=== PATIENT | male | born 1960 | race Caucasian/White ===

== ENCOUNTER 2022-02-20 04:07 | Emergency (ER) | payer BC ==
--- OUTSIDE RECORDS SUMMARY | 2022-02-20 04:12 | XMS REPORT | Continuity of Care Document ---
:1960 Author Organization [facility] t Address [address] [place] [address] Care Team Providers Name Role Phone PREMA LINARES Primary Care Physician Unavailable CHRLULEN_Vishal Attending Clinician Unavailable DANIAL BUNN Attending Clinician Unavailable Danial Bunn MD Attending Clinician 2, [facility] Attending Clinician Unavailable Reese Stewart MD Attending Clinician REESE STEWART Attending Clinician Unavailable Doctor Unassigned, [address] Attending Clinician Unavailable Lorena Casas Attending Clinician [phone] CATAL[place] Attending Clinician Unavailable Prema Linares Attending Clinician [phone] Alfonzo Attending Clinician Unavailable FAUSTO HILLMAN Attending Clinician Unavailable Fausto Bear Attending Clinician CHRETIEN_F Admitting Clinician Unavailable DANIAL BUNN Admitting Clinician Unavailable CATALINO Admitting Clinician Unavailable Alfonzo Admitting Clinician Unavailable Payers Payer Name Policy Type Policy Number Effective Date Expiration Date April mehta [place] [id number] 2020 00:00:00 BCBS [facility] [id number] 2019 00:00:00 [facility] [id number] [place] Problems Condition Condition Condition Status Onset Resolution Last Treating Co mments Source Name Details Category Date Date Treatment Clinician Date Respirator Respirator Problem Active [facility] [facility] tract y Tract 8-10 [facility] congestion Congestion 00:00: ty and cough and Cough 00 [facility] Clinics Acute Acute Problem Active [place] sinusitis Sinusitis 10-07 Comm uni 00:00: ty 00 [facility] Allergic Allergic Problem Active [place] rhinitis Rhinitis 10-07 [facility] i 00:00: ty 00 [facility] COVID-19 Covid-19 Problem Active [place] 10-07 [facility] 00:[facility]: ty 00 [facility] Atypical Atypical Problem Active 2020-03 [place] chest pain Chest Pain - [facility] 00:00: ty 00 [facility] Family Family Problem Active 2020-03 [place] history of History of 03-23 [facility] Cardiovasc Cardiovasc 00:00: ty danielleyaneth li 00 [facility] disease Disease l Clinics Peripheral Peripheral Problem Active [place] vascular Vascular 08-28 [facility] disease Disease 00:00: ty 00 Hospita [facility] Clinics Bilateral Bilateral Problem Active [place] lower leg Lower Leg 08-28 Comm uni edema Edema 00:00: ty 00 [facility]ospita l Clinics Hypothyroi Hypothyroi Problem Active 2019-03 [place] dism dism 04-02 [facility] 00:00: ty 00 [facility]ospita l Clinics Asthma Asthma Problem Active [place] 09-07 [facility]i 00:00: ty 00 [facility] Chronic Chronic Problem Active [place] hepatitis Hepatitis 09-07 Comm uni 00:00: ty 00 Hospita Clinics Allergies, Adverse Reactions, Alerts Allergy Allergy Status Severity Reaction(s) Onset Inactive Treating Comm ents Source Name Type Date Date Clinician NO KNOWN Drug [facility] Social History Social Habit Start Date Stop Date Quantity Comments Source Exposure to 2021-10-28 2021-11-07 Not sure [facility] SARS-CoV-2 (event) 00:00:00 10:11:00 Medica l Branch Sex Ass[birth year] At [birth year] [facility] 00:00:00 00:00:00 Medical Branch Smoking Status Start Date Stop Date Source Never Smoker [facility] Tobacco smoking consumption [facility] Medical unknown Branch Medications Ordered Filled Start Stop Current Ordering Indication Dosage Frequency Signature Comments Components Source Medication Medication Date Date Medication? Clinician (SIG) Name Name Kenyatta You 40 No Kenyatta 40 [place] mg/mL mg/mL 8-10 mg/mL [facility] suspension suspension 15:39: suspension ty for for 30 for Hospita injectionTa injectionTa injectionT l ke 60 mg by ke 60 mg by jaxon 60 mg Clinics injection injection by route as route as injection directed directed route as for 1 day. for 1 day. directed for 1 day. Kenyatta 40 Kenyatta 40 No Kenyatta 40 [place] mg/mL mg/mL 8-10 mg/mL [facility]i suspension suspension 15:39: suspension ty for for 30 for Hospita injectionTa injectionTa injectionT l ke 60 mg by ke 60 mg by jaxon 60 mg Clinics injection injection by route as route as injection directed directed route as for 1 day. for 1 day. directed for 1 day. levothyroxi levothyroxi No levothyrox [place] 25 mcg ne 25 mcg ine 25 mcg da tablet TAKE tablet TAKE tablet Medical 1 TABLET BY 1 TABLET BY TAKE 1 Group MOUTH ONCE MOUTH ONCE TABLET BY DAILY DAILY MOUTH ONCE DIRECTED DIRECTED DAILY DIRECTED acyclovir acyclovir No acyclovir [place] 800 mg 800 mg 800 mg Communi tablet TAKE tablet TAKE tablet ty 1 TABLET BY 1 TABLET BY TAKE 1 Hospita MOUTH FIVE MOUTH FIVE TABLET BY l TIMES DAILY TIMES DAILY MOUTH FIVE Clinics DIRECTED DIRECTED TIMES FOR 10 DAYS FOR 10 DAYS DAILY DIRECTED FOR 10 DAYS albuterol albuterol No 2puff(s Q5H albuterol [place] sulfate HFA sulfate HFA ) sulfate Communi 90 90 HFA 90 ty mcg/actuati mcg/actuati mcg/actuat Hospita on aerosol on aerosol ion l inhaler inhaler aerosol Clinic s Inhale 2 Inhale 2 inhaler puffs every puffs every Inhale 2 4-6 hours 4-6 hours puffs by by every 4-6 inhalation inhalation hours by route as route as inhalation needed for needed for route as 30 days. 30 days. needed for 30 days. methylpredn methylpredn No methylpred [place] isolone 4 isolone 4 nisolone 4 Communi mg tablets mg tablets mg tablets ty in a dose in a dose in a dose Hospita pack TAKE pack TAKE pack TAKE l BY MOUTH BY MOUTH BY MOUTH Clinics DIRECTED ON DIRECTED ON INSIDE OF INSIDE OF DIRECTED PACKAGE PACKAGE ON INSIDE OF PACKAGE promethazin promethazin No 5mL Q6H promethazi [place] e-DM 6.25 e-DM 6.25 ne-DM 6.25 Communi mg-15 mg/5 mg-15 mg/5 mg-15 mg/5 ty mL oral mL oral mL oral Hospit a syrup Take syrup Take syrup Take l 5 mL every 5 mL every 5 mL every Clinics 6 hours by 6 hours by 6 hours by oral route oral route oral route as needed as needed as needed for 7 days. for 7 days. for 7 days. Symbicort Symbicort No Symbicort [place] 160 mcg-4.5 160 mcg-4.5 160 [facility] mcg/actuati mcg/actuati mcg-4.5 ty on HFA on HFA mcg/actuat Hospi ta aerosol aerosol ion HFA l inhaler inhaler aerosol Clinic s INHALE 2 INHALE 2 inhaler PUFFS BY PUFFS BY INHALE 2 MOUTH TWICE MOUTH TWICE PUFFS BY DAILY DAILY MOUTH DIRECTED DIRECTED TWICE DAILY DIRECTED albuterol albuterol No albuterol [place] sulfate 2.5 sulfate 2.5 sulfate Communi mg/3 mL mg/3 mL 2.5 mg/3 ty (0.083 %) (0.083 %) mL (0.083 Hospita solution solution %) l for for solution Clinics nebulizatio nebulizatio for n Inhale 3 n Inhale 3 nebulizati mL 3 times mL 3 times on Inhale a day by a day by 3 mL 3 nebulizatio nebulizatio times a n route as n route as day by directed directed nebulizati for 30 for 30 on route days. days. as directed for 30 days. albuterol albuterol No 2puff(s Q5H albuterol [place] sulfate HFA sulfate HFA ) sulfate Communi 90 90 HFA 90 ty mcg/actuati mcg/actuati mcg/actuat Hospita on aerosol on aerosol ion l inhaler inhaler aerosol Clinic s Inhale 2 Inhale 2 inhaler puffs every puffs every Inhale 2 4-6 hours 4-6 hours puffs by by every 4-6 inhalation inhalation hours by route as route as inhalation needed for needed for route as 30 days. 30 days. needed for 30 days. doxycycline doxycycline No doxycyclin [place] hyclate 100 hyclate 100 e hyclate Communi mg capsule mg capsule 100 mg t y Day 1: Take Day 1: Take capsule Hospita 2 - 100mg 2 - 100mg Day 1: l doxycycline doxycycline Take 2 - Clinics hyclate hyclate 100mg capsules by capsules by doxycyclin mouth.Day mouth.Day e hyclate 2, 3, 4, 5: 2, 3, 4, 5: capsules Take 1 - Take 1 - by 100mg 100mg mouth.Day doxycycline doxycycline 2, 3, 4, hyclate hyclate 5: Take 1 capsule capsule - 100mg daily, by daily, by doxycyclin mouth. mouth. e hyclate capsule daily, by mouth. methylpredn methylpredn No methylpred [place] isolone 4 isolone 4 nisolone 4 Communi mg tablets mg tablets mg tablets ty in a dose in a dose in a dose Hospita pack TAKE pack TAKE pack TAKE l BY MOUTH BY MOUTH BY MOUTH Clinics DIRECTED ON DIRECTED ON INSIDE OF INSIDE OF DIRECTED PACKAGE PACKAGE ON INSIDE OF PACKAGE promethazin promethazin No promethazi [place] e-DM 6.25 e-DM 6.25 ne-DM 6.25 Communi mg-15 mg/5 mg-15 mg/5 mg-15 mg/5 ty mL oral mL oral mL oral Hospit a syrup TAKE syrup TAKE syrup TAKE l 5 ML BY 5 ML BY 5 ML BY Clinic s MOUTH EVERY MOUTH EVERY MOUTH 6 HOURS 6 HOURS EVERY 6 NEEDED FOR NEEDED FOR HOURS 7 DAYS 7 DAYS NEEDED FOR 7 DAYS Symbicort Symbicort No Symbicort [place] 160 mcg-4.5 160 mcg-4.5 160 [facility] mcg/actuati mcg/actuati mcg-4.5 ty on HFA on HFA mcg/actuat Hospi ta aerosol aerosol ion HFA l inhaler inhaler aerosol Clinic s INHALE 2 INHALE 2 inhaler PUFFS BY PUFFS BY INHALE 2 MOUTH TWICE MOUTH TWICE PUFFS BY DAILY DAILY MOUTH DIRECTED DIRECTED TWICE DAILY DIRECTED albuterol albuterol No albuterol [place] sulfate 2.5 sulfate 2.5 sulfate Communi mg/3 mL mg/3 mL 2.5 mg/3 ty (0.083 %) (0.083 %) mL (0.083 Hospita solution solution %) l for for solution Clinics nebulizatio nebulizatio for n Inhale 3 n Inhale 3 nebulizati mL 3 times mL 3 times on Inhale a day by a day by 3 mL 3 nebulizatio nebulizatio times a n route as n route as day by directed directed nebulizati for 30 for 30 on route days. days. as directed for 30 days. albuterol albuterol No 2puff(s Q5H albuterol [place] sulfate HFA sulfate HFA ) sulfate Communi 90 90 HFA 90 ty mcg/actuati mcg/actuati mcg/actuat Hospita on aerosol on aerosol ion l inhaler inhaler aerosol Clinic s Inhale 2 Inhale 2 inhaler puffs every puffs every Inhale 2 4-6 hours 4-6 hours puffs by by every 4-6 inhalation inhalation hours by route as route as inhalation needed for needed for route as 30 days. 30 days. needed for 30 days. Symbicort Symbicort No Symbicort [place] 160 mcg-4.5 160 mcg-4.5 160 [facility] mcg/actuati mcg/actuati mcg-4.5 ty on HFA on HFA mcg/actuat Hospi ta aerosol aerosol ion HFA l inhaler inhaler aerosol Clinic s INHALE 2 INHALE 2 inhaler PUFFS BY PUFFS BY INHALE 2 MOUTH TWICE MOUTH TWICE PUFFS BY DAILY DAILY MOUTH DIRECTED DIRECTED TWICE DAILY DIRECTED albuterol albuterol No albuterol [place] sulfate 2.5 sulfate 2.5 sulfate Communi mg/3 mL mg/3 mL 2.5 mg/3 ty (0.083 %) (0.083 %) mL (0.083 Hospita solution solution %) l for for solution Clinics nebulizatio nebulizatio for n Inhale 3 n Inhale 3 nebulizati mL 3 times mL 3 times on Inhale a day by a day by 3 mL 3 nebulizatio nebulizatio times a n route as n route as day by directed directed nebulizati for 30 for 30 on route days. days. as directed for 30 days. albuterol albuterol No albuterol [place] sulfate HFA sulfate HFA sulfate Communi 90 90 HFA 90 ty mcg/actuati mcg/actuati mcg/actuat Hospita on aerosol on aerosol ion l inhaler inhaler aerosol Clinic s INHALE 2 INHALE 2 inhaler PUFFS BY PUFFS BY INHALE 2 MOUTH EVERY MOUTH EVERY PUFFS BY 4 TO 6 4 TO 6 MOUTH HOURS HOURS EVERY 4 TO NEEDED NEEDED 6 HOURS NEEDED levothyroxi levothyroxi No 1 levothyrox [place] ne 25 mcg ne 25 mcg ine 25 mcg Communi tablet Take tablet Take tablet ty 1 tablet by 1 tablet by Take 1 [facility] oral route oral route tablet by l as directed as directed oral route Clinics for for 90 as days. days. directed for 90 days. Symbicort Symbicort No Symbicort [place] 160 mcg-4.5 160 mcg-4.5 160 [facility] mcg/actuati mcg/actuati mcg-4.5 ty on HFA on HFA mcg/actuat Hospi ta aerosol aerosol ion HFA l inhaler inhaler aerosol Clinic s INHALE 2 INHALE 2 inhaler PUFFS BY PUFFS BY INHALE 2 MOUTH TWICE MOUTH TWICE PUFFS BY DAILY DAILY MOUTH DIRECTED DIRECTED TWICE DAILY DIRECTED albuterol albuterol No albuterol [place] sulfate HFA sulfate HFA sulfate Communi 90 90 HFA 90 ty mcg/actuati mcg/actuati mcg/actuat Hospita on aerosol on aerosol ion l inhaler inhaler aerosol Clinic s INHALE 2 INHALE 2 inhaler PUFFS BY PUFFS BY INHALE 2 MOUTH EVERY MOUTH EVERY PUFFS BY 4 TO 6 4 TO 6 MOUTH HOURS HOURS EVERY 4 TO NEEDED NEEDED 6 HOURS NEEDED dicyclomine dicyclomine No 1 QID dicyclomin [place] 20 mg 20 mg e 20 mg Communi tablet Take tablet Take tablet ty 1 tablet 4 1 tablet 4 Take 1 H ospita times a day times a day tablet 4 l by oral by oral times a Clinic s route as route as day by directed directed oral route for 14 for 14 as days. days. directed for 14 days. levothyroxi levothyroxi No 1 levothyrox [place] ne 25 mcg ne 25 mcg ine 25 mcg Communi tablet Take tablet Take tablet ty 1 tablet by 1 tablet by Take 1 [facility] oral route oral route tablet by l as directed as directed oral route Clinics for 90 for 90 as days. days. directed for 90 days. metronidazo metronidazo No 1 TID metronidaz [place] le 250 mg le 250 mg ole 250 mg Communi tablet Take tablet Take tablet ty 1 tablet 3 1 tablet 3 Take 1 H ospita times a day times a day tablet 3 l by oral by oral times a Clinic s route as route as day by directed directed oral route for 7 days. for 7 days. as directed for 7 days. albuterol albuterol No albuterol [place] sulfate HFA sulfate HFA sulfate Communi 90 90 HFA 90 ty mcg/actuati mcg/actuati mcg/actuat Hospita on aerosol on aerosol ion l inhaler inhaler aerosol Clinic s INHALE 2 INHALE 2 inhaler PUFFS BY PUFFS BY INHALE 2 MOUTH EVERY MOUTH EVERY PUFFS BY 4 TO 6 4 TO 6 MOUTH HOURS HOURS EVERY 4 TO NEEDED NEEDED 6 HOURS NEEDED levothyroxi levothyroxi No levothyrox [place] ne 25 mcg ne 25 mcg ine 25 mcg Communi tablet Take tablet Take tablet ty 1 tablet by 1 tablet by Take 1 Hospita oral route oral route tablet by l as directed as directed oral route Clinics for 90 for 90 as days. days. directed for 90 days. albuterol albuterol No albuterol [place] sulfate HFA sulfate HFA sulfate Communi 90 90 HFA 90 ty mcg/actuati mcg/actuati mcg/actuat Hospita on aerosol on aerosol ion l inhaler inhaler aerosol Clinic s INHALE 2 INHALE 2 inhaler PUFFS BY PUFFS BY INHALE 2 MOUTH EVERY MOUTH EVERY PUFFS BY 4 TO 6 4 TO 6 MOUTH HOURS HOURS EVERY 4 TO NEEDED NEEDED 6 HOURS NEEDED doxycycline doxycycline No doxycyclin [place] hyclate 100 hyclate 100 e hyclate Communi mg capsule mg capsule 100 mg t y Day 1: Take Day 1: Take capsule Hospita 2 - 100mg 2 - 100mg Day 1: l doxycycline doxycycline Take 2 - Clinics hyclate hyclate 100mg capsules by capsules by doxycyclin mouth.Day mouth.Day e hyclate 2, 3, 4, 5: 2, 3, 4, 5: capsules Take 1 - Take 1 - by 100mg 100mg mouth.Day doxycycline doxycycline 2, 3, 4, hyclate hyclate 5: Take 1 capsule capsule - 100mg daily, by daily, by doxycyclin mouth. mouth. e hyclate capsule daily, by mouth. hydrocodone hydrocodone No hydrocodon [place] 5 5 e 5 Communi mg-acetamin mg-acetamin mg-acetami ty ophen 325 ophen 325 nophen 325 Hospita mg tablet mg tablet mg tablet l TAKE 1 TAKE 1 TAKE 1 Clinics TABLET BY TABLET BY TABLET BY MOUTH EVERY MOUTH EVERY MOUTH 4 TO 6 4 TO 6 EVERY 4 TO HOURS HOURS 6 HOURS NEEDED FOR NEEDED FOR NEEDED FOR PAIN PAIN PAIN levothyroxi levothyroxi No levothyrox [place] ne 25 mcg ne 25 mcg ine 25 mcg Communi tablet Take tablet Take tablet ty 1 tablet by 1 tablet by Take 1 Hospita oral route oral route tablet by l as directed as directed oral route Clinics for 90 for 90 as days. days. directed for 90 days. Symbicort Symbicort No Symbicort [place] 160 mcg-4.5 160 mcg-4.5 160 [facility] mcg/actuati mcg/actuati mcg-4.5 ty on HFA on HFA mcg/actuat Hospi ta aerosol aerosol ion HFA l inhaler inhaler aerosol Clinic s INHALE 2 INHALE 2 inhaler PUFFS BY PUFFS BY INHALE 2 MOUTH TWICE MOUTH TWICE PUFFS BY DAILY DAILY MOUTH DIRECTED DIRECTED TWICE DAILY DIRECTED albuterol albuterol No albuterol [place] sulfate HFA sulfate HFA sulfate Communi 90 90 HFA 90 ty mcg/actuati mcg/actuati mcg/actuat Hospita on aerosol on aerosol ion l inhaler inhaler aerosol Clinic s INHALE 2 INHALE 2 inhaler PUFFS BY PUFFS BY INHALE 2 MOUTH EVERY MOUTH EVERY PUFFS BY 4 TO 6 4 TO 6 MOUTH HOURS HOURS EVERY 4 TO NEEDED NEEDED 6 HOURS NEEDED doxycycline doxycycline No doxycyclin [place] hyclate 100 hyclate 100 e hyclate Communi mg capsule mg capsule 100 mg t y Day 1: Take Day 1: Take capsule Hospita 2 - 100mg 2 - 100mg Day 1: l doxycycline doxycycline Take 2 - Clinics hyclate hyclate 100mg capsules by capsules by doxycyclin mouth.Day mouth.Day e hyclate 2, 3, 4, 5: 2, 3, 4, 5: capsules Take 1 - Take 1 - by 100mg 100mg mouth.Day doxycycline doxycycline 2, 3, 4, hyclate hyclate 5: Take 1 capsule capsule - 100mg daily, by daily, by doxycyclin mouth. mouth. e hyclate capsule daily, by mouth. hydrocodone hydrocodone No hydrocodon [place] 5 5 e 5 Communi mg-acetamin mg-acetamin mg-acetami ty ophen 325 ophen 325 nophen 325 Hospita mg tablet mg tablet mg tablet l TAKE 1 TAKE 1 TAKE 1 Clinics TABLET BY TABLET BY TABLET BY MOUTH EVERY MOUTH EVERY MOUTH 4 TO 6 4 TO 6 EVERY 4 TO HOURS HOURS 6 HOURS NEEDED FOR NEEDED FOR NEEDED FOR PAIN PAIN PAIN levothyroxi levothyroxi No levothyrox [place] ne 25 mcg ne 25 mcg ine 25 mcg Communi tablet Take tablet Take tablet ty 1 tablet by 1 tablet by Take 1 Hospita oral route oral route tablet by l as directed as directed oral route Clinics for 90 for 90 as days. days. directed for 90 days. Symbicort Symbicort No Symbicort [place] 160 mcg-4.5 160 mcg-4.5 160 [facility] mcg/actuati mcg/actuati mcg-4.5 ty on HFA on HFA mcg/actuat Hospi ta aerosol aerosol ion HFA l inhaler inhaler aerosol Clinic s INHALE 2 INHALE 2 inhaler PUFFS BY PUFFS BY INHALE 2 MOUTH TWICE MOUTH TWICE PUFFS BY DAILY DAILY MOUTH DIRECTED DIRECTED TWICE DAILY DIRECTED albuterol albuterol No albuterol [place] sulfate HFA sulfate HFA sulfate Communi 90 90 HFA 90 ty mcg/actuati mcg/actuati mcg/actuat Hospita on aerosol on aerosol ion l inhaler inhaler aerosol Clinic s INHALE 2 INHALE 2 inhaler PUFFS BY PUFFS BY INHALE 2 MOUTH EVERY MOUTH EVERY PUFFS BY 4 TO 6 4 TO 6 MOUTH HOURS HOURS EVERY 4 TO NEEDED NEEDED 6 HOURS NEEDED Kenalog 40 Kenalog 40 No 60mg Kenalog 40 [place] mg/mL mg/mL mg/mL [facility] suspension suspension suspension ty for for for Hospita injection injection injection l Take 60 mg Take 60 mg Take 60 mg Clinics by by by injection injection injection route as route as route as directed directed directed for 1 day. for 1 day. for 1 day. levofloxaci levofloxaci No 1 Q24H levofloxac [place] n 500 mg n 500 mg in 500 mg [facility] tablet Take tablet Take tablet ty 1 tablet 1 tablet Take 1 Hospi ta every 24 every 24 tablet l hours by hours by every 24 Cli nics oral route. oral route. hours by oral route. levothyroxi levothyroxi No levothyrox [place] ne 25 mcg ne 25 mcg ine 25 mcg Communi tablet Take tablet Take tablet ty 1 tablet by 1 tablet by Take 1 Hospita oral route oral route tablet by l as directed as directed oral route Clinics for 90 for 90 as days. days. directed for 90 days. Symbicort Symbicort No Symbicort [place] 160 mcg-4.5 160 mcg-4.5 160 [facility] mcg/actuati mcg/actuati mcg-4.5 ty on HFA on HFA mcg/actuat Hospi ta aerosol aerosol ion HFA l inhaler inhaler aerosol Clinic s INHALE 2 INHALE 2 inhaler PUFFS BY PUFFS BY INHALE 2 MOUTH TWICE MOUTH TWICE PUFFS BY DAILY DAILY MOUTH DIRECTED DIRECTED TWICE DAILY DIRECTED albuterol albuterol No albuterol [place] sulfate HFA sulfate HFA sulfate Communi 90 90 HFA 90 ty mcg/actuati mcg/actuati mcg/actuat Hospita on aerosol on aerosol ion l inhaler inhaler aerosol Clinic s INHALE 2 INHALE 2 inhaler PUFFS BY PUFFS BY INHALE 2 MOUTH EVERY MOUTH EVERY PUFFS BY 4 TO 6 4 TO 6 MOUTH HOURS HOURS EVERY 4 TO NEEDED NEEDED 6 HOURS NEEDED Kenalog 40 Ken[place]og 40 No 60mg Kenalog 40 [place] mg/mL mg/mL mg/mL [facility] suspension suspension suspension ty for for for Hospita injection injection injection l Take 60 mg Take 60 mg Take 60 mg Clinics by by by injection injection injection route as route as route as directed directed directed for 1 day. for 1 day. for 1 day. levofloxaci levofloxaci No 1 Q24H levofloxac [place] n 500 mg n 500 mg in 500 mg [facility] tablet Take tablet Take tablet ty 1 tablet 1 tablet Take 1 Hospi ta every 24 every 24 tablet l hours by hours by every 24 Cli nics oral route. oral route. hours by oral route. levothyroxi levothyroxi No levothyrox [place] ne 25 mcg ne 25 mcg ine 25 mcg Communi tablet Take tablet Take tablet ty 1 tablet by 1 tablet by Take 1 Hospita oral route oral route tablet by l as directed as directed oral route Clinics for 90 for 90 as days. days. directed for 90 days. Symbicort Symbicort No Symbicort [place] 160 mcg-4.5 160 mcg-4.5 160 [facility] mcg/actuati mcg/actuati mcg-4.5 ty on HFA on HFA mcg/actuat Hospi ta aerosol aerosol ion HFA l inhaler inhaler aerosol Clinic s INHALE 2 INHALE 2 inhaler PUFFS BY PUFFS BY INHALE 2 MOUTH TWICE MOUTH TWICE PUFFS BY DAILY DAILY MOUTH DIRECTED DIRECTED TWICE DAILY DIRECTED acyclovir acyclovir No 1 5xD acyclovir [place] 800 mg 800 mg 800 mg Communi tablet Take tablet Take tablet ty 1 tablet 5 1 tablet 5 Take 1 H ospita times a day times a day tablet 5 l by oral by oral times a Clinic s route as route as day by directed directed oral route for 10 for 10 as days. days. directed for 10 days. albuterol albuterol No 2puff(s Q5H albuterol [place] sulfate HFA sulfate HFA ) sulfate Communi 90 90 HFA 90 ty mcg/actuati mcg/actuati mcg/actuat Hospita on aerosol on aerosol ion l inhaler inhaler aerosol Clinic s Inhale 2 Inhale 2 inhaler puffs every puffs every Inhale 2 4-6 hours 4-6 hours puffs by by every 4-6 inhalation inhalation hours by route as route as inhalation needed for needed for route as 30 days. 30 days. needed for 30 days. Medrol Medrol No 1dose Medrol [place] (Jeff) 4 mg (Jeff) 4 mg pk(s) (Jeff) 4 mg Communi tablets in tablets in tablets in ty a dose pack a dose pack a dose Hospita Take 1 dose Take 1 dose pack Take l pk by oral pk by oral 1 dose pk Clinics route as route as by oral directed directed route as for 7 days. for 7 days. directed for 7 days. Symbicort Symbicort No Symbicort [place] 160 mcg-4.5 160 mcg-4.5 160 [facility] mcg/actuati mcg/actuati mcg-4.5 ty on HFA on HFA mcg/actuat Hospi ta aerosol aerosol ion HFA l inhaler inhaler aerosol Clinic s INHALE 2 INHALE 2 inhaler PUFFS BY PUFFS BY INHALE 2 MOUTH TWICE MOUTH TWICE PUFFS BY DAILY DAILY MOUTH DIRECTED DIRECTED TWICE DAILY DIRECTED Zithromax Zithromax No Zithromax [place] Z-Jeff 250 Z-Jeff 250 Z-Jeff 250 Communi mg tablet mg tablet mg tablet ty TAKE 2 TAKE 2 TAKE 2 Hospita TABLETS TABLETS TABLETS l (500 MG) BY (500 MG) BY (500 MG) Clinics ORAL ROUTE ORAL ROUTE BY ORAL ONCE DAILY ONCE DAILY ROUTE ONCE FOR 1 DAY FOR 1 DAY DAILY FOR THEN 1 THEN 1 1 DAY THEN TABLET (250 TABLET (250 1 TABLET MG) BY ORAL MG) BY ORAL (250 MG) ROUTE ONCE ROUTE ONCE BY ORAL DAILY FOR 4 DAILY FOR 4 ROUTE ONCE DAYS DAYS DAILY FOR 4 DAYS Immunizations Ordered Immunization Filled Immunization Date Status Commen ts Source Name Name Tdap Tdap 2018-03-15 Completed [place] [facility] Tdap 2018-03-15 Completed [place] [facility] 00:[facility] Tdap Tdap 2018-03-15 Completed [place] [facility] 00:00:00 [facility] Tdap Tdap 2018-03-15 Completed [place] [facility] 00:00:00 [facility] Tdap Tdap 2018-03-15 Completed [place] [facility] 00:00:00 [facility] Tdap Tdap 2018-03-15 Completed [place] [facility] ty 00:00:00 [facility] Tdap Tdap 2018-03-15 Completed [place] [facility] ty 00:00:00 Hospital [facility] cs Tdap Tdap 2018-03-15 Completed [place] [facility] ty 00:00:00 Hospital [facility] Tdap Tdap 2018-03-15 Completed [place] [facility] ty 00:00:00 Hospital [facility] cs Tdap Tdap 2018-03-15 Completed [place] [facility] ty 00:00:00 Hospital [facility] cs Tdap Tdap 2018-03-15 Completed [place] [facility] ty 00:00:00 Hospital Clini Vital Signs Vital Name Observation Time Observation Value Comments Source BP Diastolic 2021-10-22 00:00:00 99 mm[Hg] [facility] Height 2021-10-22 00:00:00 71 [in_i] [facility] BMI (Body Mass 2021-10-22 00:00:00 29.6 kg/m2 [facility] s BP Systolic 2021-10-22 00:00:00 150 mm[Hg] [facility] Body Weight 2021-10-22 00:00:00 3398.4 [oz_av] [facility] s BP Diastolic 2021-10-07 00:00:00 73 mm[Hg] [facility] Height 2021-10-07 00:00:00 71 [in_i] [facility] [facility] s BMI (Body Mass 2021-10-07 00:00:00 29.8 kg/m2 [facility] s BP Systolic 2021-10-07 00:00:00 125 mm[Hg] [facility] s Body Weight 2021-10-07 00:00:00 3417.6 [oz_av] [facility] s BP Diastolic 2021-07-25 00:00:00 80 mm[Hg] [facility] s Height 2021-07-25 00:00:00 71 [in_i] [facility] s BMI (Body Mass 2021-07-25 00:00:00 31 kg/m2 [facility] s BP Systolic 2021-07-25 00:00:00 134 mm[Hg] [facility] s Body Weight 2021-07-25 00:00:00 3552 [oz_av] [facility] s BP Diastolic 2021-01-15 00:00:00 84 mm[Hg] [facility] s Height 2021-01-15 00:00:00 71 [in_i] [facility] s BMI (Body Mass 2021-01-15 00:00:00 29.3 kg/m2 [facility] s BP Systolic 2021-01-15 00:00:00 132 mm[Hg] [facility] s Body Weight 2021-01-15 00:00:00 3356.8 [oz_av] [facility] Clinic s BP Diastolic 2020-08-05 00:00:00 82 mm[Hg] [facility] s Height 2020-08-05 00:00:00 71 [in_i] [facility] s BMI (Body Mass 2020-08-05 00:00:00 29.6 kg/m2 [facility] s BP Systolic 2020-08-05 00:00:00 121 mm[Hg] [facility] s Body Weight 2020-08-05 00:00:00 3392 [oz_av] [facility] s BP Diastolic 2020-05-02 00:00:00 90 mm[Hg] [facility] s Height 2020-05-02 00:00:00 71 [in_i] [facility] s BMI (Body Mass 2020-05-02 00:00:00 30.9 kg/m2 [facility]) [facility] s BP Systolic 2020-05-02 00:00:00 149 mm[Hg] [facility] Body Weight 2020-05-02 00:00:00 3542.4 [oz_av] [facility] Clinic s Height 2020-03-25 00:00:00 71 [in_i] [facility] s BP Diastolic 2020-03-19 00:00:00 79 mm[Hg] [facility] s Height 2020-03-19 00:00:00 71 [in_i] [facility] s BP Systolic 2020-03-19 00:00:00 119 mm[Hg] [facility] s BP Diastolic 2020-02-07 00:00:00 88 mm[Hg] [facility] Height 2020-02-07 00:00:00 71 [in_i] [facility] BMI (Body Mass 2020-02-07 00:00:00 30.9 kg/m2 [facility] BP Systolic 2020-02-07 00:00:00 133 mm[Hg] [facility] Body Weight 2020-02-07 00:00:00 3542.4 [oz_av] [facility] Procedures Procedure Date / Time Performed Performing Clinician Nickolas vickers US ABDOMEN LIMITED 2022-01-21 19:18:23 Danial Bunn [facility] PHYSICIAN ORDERS 2022-01-02 05:01:00 [facility] Unassigned, [facility] 2021-11-19 21:15:38 Danial Bunn [facility] NOTICE OF PRIVACY 2021-11-19 20:38:01 Doctor Unassigned, No [facility] CONSENT/REFUSAL FOR 2021-11-19 20:37:24 Doctor Unassigned, No [facility] AND [facility] TREATMENT ASSIGNMENT OF BENEFITS 2021-11-19 20:37:07 Doctor Unassigned, No [facility] US, duplex, venous, 2021-07-25 00:00:00 [facility] lower extremity [facility] MRI, head, w/wo 2021-07-25 00:00:00 [facility] XR, chest, 2 view 2020-04-25 00:00:00 [facility] XR, chest, 2 view 2020-04-23 00:00:00 [facility] XR, chest, 2 view 2020-04-11 00:00:00 [facility] XR, chest, 2 view 2020-04-08 00:00:00 [facility] XR, chest, 2 view 2020-03-25 00:00:00 [facility] US ABDOMEN COMPLETE 2019-10-16 14:03:55 Fausto Hillman [facility] CONSENT/REFUSAL FOR 2019-10-16 13:18:16 Doctor Unassigned, No [facility] [place] [facility] AND Name [facility] TREATMENT ASSIGNMENT OF BENEFITS 2019-10-16 13:18:04 Doctor Unassigned, No [facility] Hernia Repair W/mesh 2008-03-15 00:00:00 [facility] Plan of Care Planned Activity Planned Date Details Comments Source Diagnostic Test 2021-10-22 rapid strep group A, [facility] Pending 00:00:00 throat [code = rapid [facility] strep group A, throat] Diagnostic Test 2021-10-22 rapid SARS CoV 2 Ag, [facility] Pending 00:00:00 QL [place], respiratory Hospital Clinics specimen [code = rapid SARS CoV 2 Ag, QL IA, respiratory specimen] Instructions [facility] s Encounters Start End Encounter Admission Attending Care Care Encounter Source Date/Time Date/Time Type Type Clinicians Facility Department ID 2022-01-23 2022-01-23 Outpatient CHRETIEN_F [facility] [id number] [place] 00:00:00 00:00:00 111 Commun i ty [facility] 2022-01-21 2022-01-21 Outpatient R [facility] [id number] Univers 12:48:57 23:59:00 DANIAL Vickers [facility] 2022-01-21 2022-01-21 [facility] [id number] Univers 12:48:57 23:59:00 Encounter Danial vickers [id number] ity of [place] [id number] [facility] [id number] 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 [facility] [id number] [id number] Univers 11:00:00 11:15:00 Visit Reese Stewart [id number] ity of [place] [id number] [facility] [id number] Mo dical PENDING S[facility] TO [facility] 2022-01-02 2022-01-02 [facility] [id number] Univers 11:00:00 11:00:00 REESE corrales of [facility] 2022-01-02 2022-01-02 Orders Doctor CHERELLE [id number] Univers 00:00:00 00:00:00 Only Unassigned, LANI [id number] [facility] [id number] [facility] [address] 2021-12-19 2021-12-19 Outpatient CHRETIEN_F [facility] [id number] - [place] 00:00:00 00:00:00 007 Commun i ty Hospita [facility] Clinics 2021-11-19 2021-11-19 Outpatient R [facility] [id number] Univers 15:47:29 23:59:00 DANIAL Vickers o f [facility] 2021-11-19 2021-11-19 [facility] [id number] Univers 15:45:00 23:59:00 Encounter Danial vickers [id number] ity [facility] [id number] [facility] [id number] 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 2021-10-22 2021-10-22 Outpatient Augusto [facility] [id number] 00:00:00 00:00:00 Lorena [id number] 2021-10-22 2021-10-22 Outpatient Augusto [facility] [id number] 00:00:00 00:00:00 Lorena [id number] 2021-10-08 2021-10-08 Outpatient CHRETIEN_F [facility] [id number] [place] 00:00:00 00:00:00 727 Commun i ty [facility]osp[facility] Clinics 2021-10-07 2021-10-07 Outpatient CHRETIEN_F [facility] [id number] [place] 03:55:00 03:55:00 726 Commun i ty Hospita [facility] Clinics 2021-10-07 2021-10-07 [place] [facility] [place] 00:00:00 [facility]00[facility] [address], [address], [place] [address] , Ph. 2021-10-07 2021-10-07 Outpatient Augusto, [facility] [id number] 00:00:00 00:00:00 Lorena [id number] 2021-10-07 2021-10-07 Outpatient Augusto, [facility] [id number] 00:00:00 00:00:00 Lorena [id number] 2021-08-07 2021-08-07 Outpatient CHRETIEN_F [facility] [id number] [place] 03:03:00 03:03:00 526 Commun i ty Hospita [facility] Clinics 2021-07-25 2021-07-25 Outpatient CHRETIEN_F [facility] [id number] [place] 10:14:00 10:14:00 513 Commun i ty Hospita l Clinics 2021-07-25 2021-07-25 [place] [facility] [place] 00:00:00 00:00:00 [facility] [address], [facility] [address], [place] [address] , Ph. 2021-07-25 2021-07-25 Outpatient Trellmariola [facility] [id number] 00:00:00 00:00:00 Lorena [id number] 2021-03-04 2021-03-04 Outpatient [facility] 86 [place] 02:54:00 02:54:00 _L 221 Commun i ty Hospita [facility] Clinics 2021-01-28 2021-01-28 Outpatient [place] [id number] [place] 03:05:00 03:05:00 _L 116 Commun i ty Hospita [facility] Clinics 2021-01-15 2021-01-15 Outpatient [place] [id number] [place] 05:40:00 05:40:00 _L 103 Commun i ty Hospita [facility] Clinics 2021-01-15 2021-01-15 Caro [facility] [place] 202 [id number] [place] 00:00:00 00:00:00 [facility] ALLYSSA snyderC: Hospital - ty [address] [place] [address] [address], [place] [address] , Ph. 2021-01-15 2021-01-15 Outpatient [facility] [id number] 00:00:00 00:00:00 , Prema [id number] Rae [id number] 2020-10-28 2020-10-28 Outpatient [place] [id number] [place] 12:10:00 12:10:00 _L 816 Commun i ty Hospita [facility] Clinics 2020-09-23 2020-09-23 Outpatient [facility] 86 [place] 12:16:00 12:16:00 _L 712 Commun i ty Hospita [facility] Clinics 2020-08-20 2020-08-20 Outpatient [facility] [id number] [place] 01:02:00 01:02:00 _L 608 Commun i ty Hospita [facility] Clinics 2020-08-05 2020-08-05 Outpatient [place] [id number] [place] 04:45:00 04:45:00 _L 524 Commun i ty Hospita [facility] Clinics 2020-08-05 2020-08-05 Prema Mcbride [facility] [place] [id number] [place] 00:00:00 00:00:00 [facility] ANGELA Knutson-C: [address] [address], [place] [address] , Ph. 2020-08-05 2020-08-05 Outpatient [facility] [id number] 00:00:00 00:00:00 , Prema [id number] Rae [id number] 2020-05-06 2020-05-06 Outpatient [facility] 86 [place] 09:46:00 09:46:00 _L 222 Commun i ty Hospita [facility] Clinics 2020-05-03 2020-05-03 Outpatient [place] [id number] [place] 12:49:00 12:49:00 _L 219 Commun i ty Hospita [facility] Clinics 2020-05-02 2020-05-02 Outpatient [facility] 86 [place] 05:09:00 05:09:00 _L 218 Commun i ty Hospita l Clinics 2020-05-02 2020-05-02 Prema Mcbride [facility] [place] 202 [id number] [place] 00:00:00 00:00:00 [facility] ANGELA Knutson-C: [address] [address], [place] [address] , Ph. 2020-05-02 2020-05-02 Outpatient [facility] [id number] 00:00:00 00:00:00 , Prema [id number] Rae [id number] 2020-04-17 2020-04-17 Outpatient [facility] [id number] [place] 02:17:00 02:17:00 _L 203 Commun i ty Hospita [facility] 2020-04-11 2020-04-11 Outpatient [facility] [id number] [place] 05:01:00 05:01:00 _L 128 Commun i ty Hospita [facility] 2020-04-11 2020-04-11 Outpatient [facility] [id number] 00:00:00 00:00:00 , Prema [id number] Rae [id number] 2020-04-11 2020-04-11 Caro [facility] [place] 202 [id number] [place] 00:00:00 00:00:00 [facility] LOREE snyder: [address] [address], [place] [address] , Ph. 2020-03-25 2020-03-25 Outpatient [facility] [id number] [place] 04:44:00 04:44:00 _L 111 Commun i ty [facility]ospita [facility] 2020-03-25 2020-03-25 Outpatient [facility] [id number] 00:00:00 00:00:00 , Prema [id number] Rae [id number] 2020-03-25 2020-03-25 Caro [facility] [place] 202 [id number] [place] 00:00:00 00:00:00 [facility] ANGELA snyder-C: [address], [place] [address] , Ph. 2020-03-22 2020-03-22 Outpatient [facility] [id number] [place] 01:03:00 01:03:00 _L 108 Commun i ty [facility]osp[facility] 2020-03-20 2020-03-20 Outpatient [facility] [id number] [place] 09:52:00 09:52:00 _L 106 Commun i ty Hospita l Clinics 2020-03-19 2020-03-19 Outpatient [facility] [id number] [place] 05:24:00 05:24:00 _L 105 Commun i ty Hospita [facility] 2020-03-19 2020-03-19 Outpatient [facility] [id number] 00:00:00 00:00:00 , Prema [id number] Rae [id number] 2020-03-19 2020-03-19 Caro [facility] [place] 202 [id number] [place] 00:00:00 00:00:00 [facility] ANGELA snyder-C: Hospital - ty [address] [place] [address] 668, [place] [address] , Ph. 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 2020-02-06 2020-02-06 Outpatient Tin_Linn [facility] [id number] [place] 09:27:00 09:27:00 1124 da Medical Group 2020-02-01 2020-02-01 [facility] 86 [place] 04:29:00 04:29:00 _L 119 Commun i ty Hospita l Clinics 2019-10-16 2019-10-16 Outpatient R KADY [facility] [id number] Univers 08:20:02 23:59:00 FAUSTO ity of [facility] 2019-10-16 2019-10-16 [facility] [id number] Univers 08:20:02 23:59:00 Encounter Fausto [place] [id number] ity of [place] [id number] [facility] [id number] [facility] [address] 2019-10-16 2019-10-16 Orders Doctor CHERELLE [id number] Univers 00:00:00 00:00:00 Only Unassigned, LANI [id number] [facility] [id number] [facility] [id number] [facility] [address] Results Test Description Test Time Test Comments Results Result Comments Source rapid strep group A, throat 2021-10-22 14:45:00 Test Item Value Reference Range Interpretation Comme nts Strep (test code = Strep) negative [facility]-CoV-2 (COVID-19) Ag [Presence] in Respiratory specimen by Rapid [id number] 14:44:00 Test Item Value Reference Range Interpretation Comments SARS CoV 2 (test code = SARS CoV 2) [facility], [id number] 14:10:00 Test Item Value Reference Range Interpretation Comments Strep (test code = Strep) negative [facility], [id number] 14:10:00 Test Item Value Reference Range Interpretation Comments Strep (test code = Strep) negative [facility]-CoV-2 (COVID-19) Ag [Presence] in Respiratory specimen by Rapid [id number] 14:09:00 Test Item Value Reference Range Interpretation Comments SARS CoV 2 (test code = SARS CoV 2) positive [facility] [facility] CjknsxhTCPG-[id number] (COVID-19) Ag [Presence] in Respiratory specimen by Rapid [id number] 14:09:00 Test Item Value Reference Range Interpretation Comments SARS CoV 2 (test code = SARS CoV 2) [facility] Ag [Presence] in Respiratory specimen by Rapid [id number] 15:52:00 Test Item Value Reference Range Interpretation Comments SARS CoV 2 (test code = SARS CoV 2) negative [facility] Ag [Presence] in Respiratory specimen by Rapid [id number] 15:43:00 Test Item Value Reference Range Interpretation Comments SARS CoV 2 (test code = SARS CoV 2) [facility] Ag [Presence] in Respiratory specimen by Rapid [id number] 15:43:00 Test Item Value Reference Range Interpretation Comments SARS CoV 2 (test code = SARS CoV 2) [facility]) Ag [Presence] in Respiratory specimen by Rapid [id number] 15:43:00 Test Item Value Reference Range Interpretation Comments SARS CoV 2 (test code = SARS CoV 2) positive [facility] ClinicsUS ABDOMEN [id number] 16:56:33 Mildly coarse liver echotexture, can be seen in chronic liver disease Portal vein is dilated. Splenomegaly. HISTORY: Chronic hepatitis C with hepatic coma . ABDOMINAL ULTRASOUND, COMPLETE COMPARISON: None. FINDINGS: LIVER: Normal in borderline enlarged measures 17.1 cm it shows mildlycoarsened echotexture.. No focal hepatic lesion. ?Normal hepatopetal ?flowwithin the main portal vein. Patent vein isenlarged and measures 15 mm atthe aicha hepatis. GALLBLADDER: No cholelithiasis, pericholecystic fluid, or gallbladderdistention. No sonographic Bhandari's sign. The common bile duct measures____4 mm. PANCREAS: Incompletely visualized due to overlying bowel gas. SPLEEN: The spleen is enlarged, measuring 14.5 cm. KIDNEYS: The kidneys are normal in size, contour, and echotexture. Theright kidney fukhshvi21.5 cm, and the left kidney measures 11.5 cm. Nohydronephrosis. No ascites. The visualized portionsof the abdominal aorta and IVC have normal caliber.The proximal abdominal aorta measures 2.2 cm in di ameter. [facility], Radiant Results Inft User - 10/16/2019 11:57 AM CDTHISTORY: Chronic hepatitis C with hepatic coma .ABDOMINAL ULTRASOUND, COMPLETECOMPARISON: None.FINDINGS: LIVER: Normal in borderline enlarged measures 17.1 cm it shows mildlycoarsened echotexture.. No focal hepatic lesion. Normal hepatopetal flowwithin the main portal vein. Patent vein is enlarged and measures 15 mm atthe aicha hepatis.GALLBLADDER: No cholelithiasis, pericholecystic fluid, or gallbladderdistention. No sonographic Bhandari's sign. The common bile duct measures____4 mm.PANCREAS: Incompletely visualized due to overlying bowel gas.SPLEEN: The spleen is enlarged, measuring 14.5 cm. KIDNEYS: The kidneys are normal in size, contour, and echotexture. Theright kidney measures 11.5 cm, and the left kidney measures 11.5 cm. Nohydronephrosis.No ascites.The visualized portions of the abdominal aorta and IVC have normal caliber.The proximal abdominal aorta measures 2.2 cm in diameter.IMPRESSIONMildly coarse liver echotexture, canbe seen in chronic liver diseasePortal vein is dilated.Splenomegaly.[facility]
[2022-02-20 05:05] LABS: Absolute Lymphocytes (CBC) 0.8 K/uL (0.7-4.9); Hematocrit 39.8 % (39.6-49.0); Lymphocytes % 16.7 % (15.3-44.8); MCV 95.2 fL (80-100); MPV 9.2 fL (7.6-11.3); RBC Red Blood Cell Count 4.19 M/uL (4.33-5.43)
[2022-02-20 05:07] LABS: Protime INR 1.25
[2022-02-20 05:27] LABS: Albumin 3.3 g/dL (3.4-5.0); Bilirubin Direct 0.4 mg/dL (0-0.2); Bilirubin Total 1.5 mg/dL (0.2-1.0); Magnesium 1.6 mg/dL (1.6-2.4); Potassium 3.2 mmol/L (3.5-5.1); Troponin High Sensitivity 5.4 pg/mL (<58.9)
[2022-02-20 06:20] LABS: Urine Blood Negative (Negative); Urine Glucose Negative (Negative); Urine Protein Negative (Negative); Urine Specific Gravity >=1.030 (1.005-1.030); Urine pH 5.5 (5.0-7.0)
[2022-02-20] MEDS ORDERED: POTASSIUM 25 MEQ EFFERV TAB ONE (06:51)
[2022-02-20] MEDS ORDERED: MAGNESIUM SULFATE 1 gm IVPB 1 GM/100 ML BAG IV ONE (06:52)
--- NOTE | 2022-02-20 07:33 | ER ---
Nurse's Notes [facility] Name: Sandeep Lanza Age: 61 yrs Sex: Male : 1960 Arrival Date: 02/20/2022 Time: 04:11 Bed 11 Private MD: Diagnosis: Edema, unspecified;Lymphedema, not elsewhere classified;Other cirrhosis of liver-hepatitis c;Hypokalemia Presentation: 02/20 04:38 Chief complaint: Patient states: "My feet are all swollen. It has done this before but tw5 I never went to hospital. I noticed the swelling yesterday.". Coronavirus screen: Vaccine status: Patient reports being unvaccinated. Ebola Screen: Patient negative for fever greater than or equal to 101.5 degrees Fahrenheit, and additional compatible Ebola Virus Disease symptoms Patient denies exposure to infectious person. Patient denies travel to an Ebola-affected area in the 21 days before illness onset. Initial Sepsis Screen: Does the patient meet any 2 criteria? HR > 90 bpm. Does the patient have a suspected source of infection? No. Patient's initial sepsis screen is negative. Risk Assessment: Do you want to hurt yourself or someone else? Patient reports no desire to harm self or others. Onset of symptoms was February 18, 2022 at 20:00. 04:38 Method Of Arrival: Wheelchair tw5 04:38 Acuity: AMEENA 3 tw5 Triage Assessment: 04:40 General: Appears uncomfortable, Behavior is calm, cooperative, appropriate for age. tw5 Pain: Complains of pain in "My ankles hurt." Pain currently is 3 out of 10 on a pain scale. Historical: - Allergies: 04:40 No Known Allergies; tw5 - PMHx: 04:40 Asthma; Hepatitis C; tw5 - PSHx: 04:40 hernia repair; Cholecystectomy; tw5 - Immunization history:: Flu vaccine is not up to date. Patient has never been vaccinated. - Social history:: Smoking status: Patient denies any tobacco usage or history of. - Family history:: not pertinent. Screenin:41 Abuse screen: Denies threats or abuse. Denies injuries from another. Nutritional tw5 screening: No deficits noted. Tuberculosis screening: No symptoms or risk factors identified. Fall Risk No fall in past 12 months (0 pts). Vital Signs: 04:38 BP 129 / 83; Pulse 100; Resp 18; Temp 97.9; Pulse Ox 97% ; Weight 104.33 kg; Height 5 tw5 ft. 11 in. (180.34 cm); Pain 3/10; 04:38 Body Mass Index 32.08 (104.33 kg, 180.34 cm) tw5 ED Course: 04:11 Patient arrived in ED. jj6 04:23 Bethel Bahena MD is Attending Physician. [facility] 04:40 Triage completed. tw5 04:40 Arm band placed on. tw5 04:41 Patient has correct armband on for positive identification. Door closed. Noise tw5 minimized. Moved to private room. Warm blanket given. Verbal reassurance given. 04:41 No provider procedures requiring assistance completed. tw5 04:45 XRAY Chest (1 view) In Process Unspecified. EDMS 05:01 Basic Metabolic Panel Sent. tw5 05:01 CBC with Diff Sent. tw5 05:01 LFT's Sent. tw5 05:01 Magnesium Sent. tw5 05:01 NT PRO-BNP Sent. tw5 05:01 PT-INR Sent. tw5 05:01 Troponin HS Sent. tw5 05:01 Initial lab(s) drawn, by fl, sent to lab. Inserted saline lock: 20 gauge in right hand, tw5 using aseptic technique. Blood collected. 05:37 US Extremity Venous W Compression Cesario In Process Unspecified. EDLA 05:51 Yamileth Dale is Primary Nurse. tw5 07:32 Sourav Vilchis MD is Referral Physician. [facility] Administered Medications: 07:00 Drug: Potassium Effervescent Tablet 50 mEq Route: PO; pf1 07:00 Drug: Magnesium Sulfate 1 grams Route: IVPB; Infused Over: 1 hrs; Site: right hand; pf1 Medication: 04:41 VIS not applicable for this client. tw5 Outcome: 07:32 Discharge ordered by . [facility] 09:03 Patient left the ED. Signatures: Dispatcher [employer] EDLA Bethel Bahena MD MD cha Smirch, Shelby, RN RN ss Yamileth Dale tw5 Mikaela Moreno jj6 Frances clement RN RN pf1
--- NOTE | 2022-02-20 07:33 | EDPHYS ---
Physician Documentation [facility] Name: Sandeep Lanza Age: 61 yrs Sex: Male : 1960 Arrival Date: 02/20/2022 Time: 04:11 Bed 11 Private MD: PRITESH Physician Bethel Bahena HPI: 02/20 05:15 This 61 yrs old Male presents to ER via Wheelchair with complaints of rosaura Swelling of Lower Extremity, H/O HEP C. 05:15 The patient presents with decreased range of motion, pain, that is acute. The rosaura complaints affect the right leg and left leg. Context: The problem was sustained at an unknown site. Onset: The symptoms/episode began/occurred 2 day(s) ago. Modifying factors: The symptoms are alleviated by nothing. the symptoms are aggravated by nothing. movement. Associated signs and symptoms: The patient has no apparent associated signs or symptoms. Treatment prior to arrival includes: no previous treatment. Severity of symptoms: At their worst the symptoms were mild, moderate, in the emergency department the symptoms are unchanged. It is unknown whether or not the patient has had similar symptoms in the past. Historical: - Allergies: 04:40 No Known Allergies; tw5 - PMHx: 04:40 Asthma; Hepatitis C; tw5 - PSHx: 04:40 hernia repair; Cholecystectomy; tw5 - Immunization history:: Flu vaccine is not up to date. Patient has never been vaccinated. - Social history:: Smoking status: Patient denies any tobacco usage or history of. - Family history:: not pertinent. ROS: 05:15 Constitutional: Negative for fever, chills, and weight loss, Eyes: Negative for injury, rosaura pain, redness, and discharge, ENT: Negative for injury, pain, and discharge, Neck: Negative for injury, pain, and swelling, Cardiovascular: Negative for chest pain, palpitations, and edema, Respiratory: Negative for shortness of breath, cough, wheezing, and pleuritic chest pain, Abdomen/GI: Negative for abdominal pain, nausea, vomiting, diarrhea, and constipation, Back: Negative for injury and pain, : Negative for injury, bleeding, discharge, and swelling, Skin: Negative for injury, rash, and discoloration, Neuro: Negative for headache, weakness, numbness, tingling, and seizure, Psych: Negative for depression, anxiety, suicide ideation, homicidal ideation, and hallucinations, Allergy/Immunology: Negative for hives, rash, and allergies, Endocrine: Negative for neck swelling, polydipsia, polyuria, polyphagia, and marked weight changes, Hematologic/Lymphatic: Negative for swollen nodes, abnormal bleeding, and unusual bruising. 05:15 MS/extremity: Positive for pain, tenderness, of the right leg and left leg. Exam: 05:15 Constitutional: This is a well developed, well nourished patient who is awake, alert, rosaura and in no acute distress. Head/Face: Normocephalic, atraumatic. Eyes: Pupils equal round and reactive to light, extra-ocular motions intact. Lids and lashes normal. Conjunctiva and sclera are non-icteric and not injected. Cornea within normal limits. Periorbital areas with no swelling, redness, or edema. ENT: Nares patent. No nasal discharge, no septal abnormalities noted. Tympanic membranes are normal and external auditory canals are clear. Oropharynx with no redness, swelling, or masses, exudates, or evidence of obstruction, uvula midline. Mucous membranes moist. Neck: Trachea midline, no thyromegaly or masses palpated, and no cervical lymphadenopathy. Supple, full range of motion without nuchal rigidity, or vertebral point tenderness. No Meningismus. Chest/axilla: Normal chest wall appearance and motion. Nontender with no deformity. No lesions are appreciated. Cardiovascular: Regular rate and rhythm with a normal S1 and S2. No gallops, murmurs, or rubs. Normal PMI, no JVD. No pulse deficits. Respiratory: Lungs have equal breath sounds bilaterally, clear to auscultation and percussion. No rales, rhonchi or wheezes noted. No increased work of breathing, no retractions or nasal flaring. Abdomen/GI: Soft, non-tender, with normal bowel sounds. No distension or tympany. No guarding or rebound. No evidence of tenderness throughout. Back: No spinal tenderness. No costovertebral tenderness. Full range of motion. Skin: Warm, dry with normal turgor. Normal color with no rashes, no lesions, and no evidence of cellulitis. Neuro: Awake and alert, GCS 15, oriented to person, place, time, and situation. Cranial nerves II-XII grossly intact. Motor strength 5/5 in all extremities. Sensory grossly intact. Cerebellar exam normal. Normal gait. Psych: Awake, alert, with orientation to person, place and time. Behavior, mood, and affect are within normal limits. 05:15 Musculoskeletal/extremity: Extremities: grossly normal except: pain, swelling, ROM: full active range of motion, full passive range of motion, Circulation is intact in all extremities. Sensation intact. Compartment Syndrome exam of affected extremity: is normal. DVT Exam: negative Homans' sign noted on exam, no appreciated bluish discoloration, no erythema, no increased warmth, pain, swelling, tenderness. 07:32 ECG was reviewed by the Attending Physician. [facility] Vital Signs: 04:38 BP 129 / 83; Pulse 100; Resp 18; Temp 97.9; Pulse Ox 97% ; Weight 104.33 kg; Height 5 tw5 ft. 11 in. (180.34 cm); Pain 3/10; 04:38 Body Mass Index 32.08 (104.33 kg, 180.34 cm) tw5 MDM: 04:23 Patient medically screened. [facility] 05:19 Differential diagnosis: contusion, tendonitis. Data reviewed: vital signs, nurses [facility] notes, lab test result(s), EKG, radiologic studies, doppler, plain films. Data interpreted: innersole maker: rate is 100 beats/min, rhythm is regular, Pulse oximetry: on room air is 97 %. Test interpretation: by ED physician or midlevel provider: ECG, plain radiologic studies. Counseling: I had a detailed discussion with the patient and/or guardian regarding: the historical points, exam findings, and any diagnostic results supporting the discharge/admit diagnosis, lab results, radiology results, the need for outpatient follow up, for definitive care, a family practitioner, a environmental science program director. 02/20 04:24 Order name: Basic Metabolic Panel; Complete Time: 06:36 [facility] 02/20 04:24 Order name: CBC with Diff; Complete Time: 05:15 [facility] 02/20 04:24 Order name: LFT's; Complete Time: 06:36 [facility] 02/20 04:24 Order name: Magnesium; Complete Time: 06:36 [facility] 02/20 04:24 Order name: NT PRO-BNP; Complete Time: 06:36 [facility] 02/20 04:24 Order name: PT-INR; Complete Time: 05:15 [facility] 02/20 04:24 Order name: Troponin HS; Complete Time: 06:36 [facility] 02/20 04:24 Order name: XRAY Chest (1 view) [facility] 02/20 04:24 Order name: Lipase; Complete Time: 06:36 [facility] 02/20 04:24 Order name: AMMONIA; Complete Time: 06:36 [facility] 02/20 04:24 Order name: US Extremity Venous W Compression Cesario [facility] 02/20 06:21 Order name: Urine Dipstick-Ancillary; Complete Time: 06:36 [facility] 02/20 04:24 Order name: EKG; Complete Time: 04:25 [facility] 02/20 04:24 Order name: Cardiac monitoring; Complete Time: 05:12 [facility] 02/20 04:24 Order name: EKG - Nurse/Tech; Complete Time: 05:12 [facility] 02/20 04:24 Order name: IV Saline Lock; Complete Time: 05:12 [facility] 02/20 04:24 Order name: Labs collected and sent; Complete Time: 05:01 [facility] 02/20 04:24 Order name: O2 Per Protocol; Complete Time: 05:01 [facility] 02/20 04:24 Order name: O2 Sat Monitoring; Complete Time: 05:01 [facility] 02/20 04:24 Order name: Urine Dipstick-Ancillary (obtain specimen); Complete Time: 06:28 [facility] EC:32 Rate is 99 beats/min. Rhythm is regular. QRS [place] is Normal. [place] interval is normal. QRS rosaura interval is normal. QT interval is prolonged at 500 msec. No Q waves. T waves are Normal. ST Segment is depressed in leads II, III, aVF, V5, V6. Clinical impression: NSR w/ Non-specific ST/T Changes and No evidence of ischemia. Interpreted by me. Reviewed by me. Administered Medications: 07:00 Drug: Potassium Effervescent Tablet 50 mEq Route: PO; pf1 07:00 Drug: Magnesium Sulfate 1 grams Route: IVPB; Infused Over: 1 hrs; Site: right hand; pf1 Disposition Summary: 02/20/22 07:32 Discharge Ordered Location: Home rosaura Problem: new rosaura Symptoms: have improved rosaura Condition: Stable rosaura Diagnosis - Edema, unspecified rosaura - Lymphedema, not elsewhere classified rosaura - Other cirrhosis of liver - hepatitis c rosaura - Hypokalemia rosaura Followup: rosaura - With: Private Physician - When: 2 - 3 days - Reason: Recheck today's complaints, Continuance of care, Re-evaluation by your physician Followup: rosaura - With: - When: 2 - 3 days - Reason: Recheck today's complaints, Re-evaluation by your physician Discharge Instructions: - Discharge Summary Sheet rosaura - Cirrhosis rosaura - Edema rosaura - Lymphedema rosaura - Edema, [id number] rosaura - Potassium Content of Foods rosaura - Peripheral Edema rosaura - Hypokalemia rosaura Forms: - Medication Reconciliation Form rosaura - Thank You Letter rosaura - Antibiotic Education rosaura - Prescription Opioid Use rosaura Prescriptions: - Protonix 40 mg Oral Tablet - take 1 tablet by ORAL route once daily; 30 tablet; Refills: 0, Product rosaura Selection Permitted - Lasix 20 mg Oral Tablet - take 1 tablet by ORAL route once daily; 20 tablet; Refills: 0, Product rosaura Selection Permitted - Spironolactone 25 mg Oral Tablet - take 1 tablet by ORAL route once daily; 30 tablet; Refills: 0, Product rosaura Selection Permitted Signatures: Dispatcher [employer] Bethel Monae MD MD cha Wood, Tiffany tw5 Frances clement RN RN pf1
[2022-02-20 09:13] VITALS: BP 129/83; TEMP 97.9; O2SAT 97
--- NOTE | 2022-02-20 14:31 | RAD REPORT ---
EXAM DESCRIPTION: Extrem Venous W Compress Cesario CLINICAL HISTORY: 61 years Male Pain COMPARISON: None TECHNIQUE: Spectral analysis and color/grayscale sonographic images of both legs were obtained utili zing a high-frequency linear array transducer supplemented with color Doppler, compression and augmen tation techniques. FINDINGS: Right leg veins: Common femoral: normal Greater saphenous: normal Superficial femoral: normal Popliteal: normal Calf Veins: normal Left leg veins: Common femoral: normal Greater saphenous: normal Superficial femoral: normal Popliteal: normal Calf Veins: normal IMPRESSION: 1. No sonographic evidence for lower extremity deep venous thrombosis in either leg. Electronically signed by: Fatuma Ascencio MD 02/20/2022 6:05 AM MOVEMAN Due to temporary technical issues with the PACS/Fluency reporting system, reports are being signed by the in house radiologists without review as a courtesy to insure prompt reporting. The interpreting radiologist is fully responsible for the content of the report.
--- NOTE | 2022-02-20 14:44 | RAD REPORT ---
EXAM DESCRIPTION: X-ray single view chest. CLINICAL HISTORY: 61 years Male, COUGH COMPARISON: 05/01/2020 TECHNIQUE: Single portable x-ray view of the chest performed on 02/20/2022 at 4:35 AM FINDINGS: There is slightly decreased inflation of the lungs when compared to the prior study. There is very mild perihilar interstitial prominence which could reflect mild vascular congestion. The lat eral costophrenic sulci are clear. No focal airspace consolidation is identified. There is no evidenc e of a pneumothorax. The cardiac silhouette is normal in size and configuration. The mediastinal contours are normal. No acute osseous abnormality is identified. No acute soft tissue abnormalities are seen. Lines and tubes: None. Free air: None IMPRESSION: 1. Mild perihilar interstitial prominence which could reflect mild vascular congestion. 2. Slightly decreased inflation of the lungs when compared to the prior study. Electronically signed by: Kristal Baca DO 02/20/2022 5:50 AM TAX MANAGER PUBLIC Due to temporary technical issues with the PACS/Fluency reporting system, reports are being signed by the in house radiologists without review as a courtesy to insure prompt reporting. The interpreting radiologist is fully responsible for the content of the report.
--- NOTE | 2022-02-20 17:36 | EKG ---
Test Date: 2022-02-20 Test Time: 05:08:28 Twister Frame Tender: MEASUREMENT RESULTS: Intervals: Rate: 99 [place]: 172 QRSD: 110 QT: 390 QTc: 500 [place]: P: 67 [place]: 172 QRS: 45 T: 4 INTERPRETIVE STATEMENTS: Normal sinus rhythm Nonspecific ST abnormality Prolonged QT Abnormal ECG Compared to ECG 05/24/2016 22:59:16 ST (T wave) deviation now present Prolonged QT interval now present Electronically Signed On 02-20-22 17:36:05 COAL MINE INSPECTOR by Trace Herbert
== END 2022-02-20 09:03 | disposition home or self-care (01) ==
LOC: ER 04:07
DX: I89.0 Lymphedema, not elsewhere classified (principal); K74.69 Other cirrhosis of liver; E87.6 Hypokalemia; B19.20 Unspecified viral hepatitis C without hepatic coma
CPT/HCPCS: 36415; 71045; 80048; 80076; 81003; 82140; 83690; 83735; 83880; 84484; 85025; 85610; 93005; 93970; 96374; 99284; J3475 ×2

== ENCOUNTER 2023-11-11 05:07 | Inpatient (IN) | payer BC ==
--- OUTSIDE RECORDS SUMMARY | 2023-11-11 05:14 | XMS REPORT | Clinical Summary ---
Author Name Unknown Organization [facility] Address [address] [place] [address] Care Team Providers Care Affiliate Manager Name Role Phone Lorena Casas APRN Unavailable [phone] Mansi Lui MD Primary Care Provider [phone] Kelsea Peraza MD Primary Care Provider [phone] Hesham Masters MD Unavailable [phone] Hesham Masters MD Primary Care Provider [phone] Kelsea Peraza MD Unavailable [phone] Allergies No known active allergies Medications Medication Sig Dispensed Refills Start Date End Date Status Symbicort 160-4.5 mcg/actuation inhaler Inhale 2 puffs by mouth as needed. Active albuterol (VENTOLIN HFA,PROAIR HFA) 90 mcg/puff inhaler Inhale 1-2 puffs by mouth as needed. Active levoFLOXacin (LEVAQUIN) 750 mg tabletIndication s:Follicular lymphoma, NOS of intra-abdominal lymph nodes Take 1 tablet (750 mg) by mouth daily. 7 tablet 07/23/2023 Active levothyroxine (SYNTHROID, LEVOTHROID) 25 mcg tablet Take 1 tablet (25 mcg) by mouth daily. 4 Discontinued(Ther apy completed) UNABLE TO FIND Take 1 tablet by mouth daily. Med Name: LiverMD 4 Discontinued Active Problems Patient Care Coordination No te Formatting of this note migh t be different from the original. Patient has Fridays off from work and prefers Wednesday appts as that is the only weekday he can get a ride into [place]. Problem Noted Date Diagnosed Date Follicular lymphoma, grade 2 of intra-abdominal lymph nodes 07/29/2023 Headache 02/15/2023 Vitamin D deficiency 02/15/2023 Allergic rhinitis 10/07/2021 FH: Cardiovascular disease 01/21/2021 Peripheral vascular disease 08/28/2020 Hypothyroidism 02/01/2020 Reactive airway disease 03/02/2019 Increased liver function 03/02/2019 Encounters Date Type Department Care Team Description 07/30/2023 10:00 AM CDT [facility] [address] [place] [address], 6th [place] [address] Hesham Masters MD Follicular lymphoma, grade 2 of intra-abdominal lymph nodes (Primary Dx); Follicular lymphoma, NOS of intra-abdominal lymph nodes 07/30/2023 Telephone [facility] [address] [place] [address], 6th [place] [address] Ellie Gray RN 07/26/2023 Orders Only [facility] [address] [place] [address], 1st [place] [address] Umesh Gan APRN Follicular lymphoma, grade 2 of lymph node, NOS (Primary Dx) 07/23/2023 3:00 PM CDT Follow-Up [facility] [address] [place] [address], 6th [place] [address] Hesham Masters MD Follicular lymphoma, NOS of intra-abdominal lymph nodes (Primary Dx) 07/23/2023 11:00 AM CDT Ancillary Procedure PET Imaging [address] [facility], 6th [place] [address] Sandie Delaney PA Follicular lymphoma grade II of lymph nodes of multiple sites 07/23/2023 8:38 AM CDT - 07/23/2023 11:59 PM CDT Hospital Encounter [facility] [address] [place] [address], 11th [place] [address] Cynthia Damian APRN Cook, Robin Michelle, APRN Follicular lymphoma, NOS of intra-abdominal lymph nodes Discharge Disposition: Home 07/23/2023 7:13 AM CDT - 07/23/2023 8:37 AM CDT Hospital Encounter [facility] [address] [place] [address] [place] [address] Cynthia Damian APRN Follicular lymphoma, NOS of intra-abdominal lymph nodes; Follicular lymphoma, grade 2 of intra-abdominal lymph nodes Discharge Disposition: Home 07/23/2023 Travel 07/15/2023 Orders Only [facility] [address] [place] [address], [address] [place], [place] [address] [address] Brenda Cespedes PA 07/15/2023 Orders Only [facility] [address] [place] [address], [address] [place] [address] Nadege Parker APRN Follicular lymphoma, grade 2 of intra-abdominal lymph nodes (Primary Dx) 07/09/2023 3:00 PM CDT - 07/09/2023 11:59 PM CDT Hospital Encounter [facility] [address] [place] [address] Sandie Delaney PA Follicular lymphoma grade II of lymph nodes of multiple sites Discharge Disposition: Home 07/09/2023 2:00 PM CDT Consult [facility] [address] [place] [address], [facility] [place] [address] Hesham Masters MD Follicular lymphoma, NOS of intra-abdominal lymph nodes (Primary Dx); Lymphadenopathy 07/09/2023 12:56 PM CDT - 07/09/2023 2:59 PM CDT Hospital Encounter Cardiopulmonary Center [address] [place] [address], [facility] [place] [address] Sandie Delaney PA Follicular lymphoma grade II of lymph nodes of multiple sites Discharge Disposition: Home 07/09/2023 Orders Only [facility] [address] [place] [address], 6th [place] [address] Cynthia Damian APRN Follicular lymphoma, grade 2 of intra-abdominal lymph nodes (Primary Dx) 07/09/2023 Travel 07/07/2023 Orders Only [facility] [address] [place] [address], 6th [place] [address] Sandie Delaney PA Follicular lymphoma grade II of lymph nodes of multiple sites (Primary Dx) 06/29/2023 1:30 PM CDT Telemedicine [facility] [address] [place] [address], 9th [place] [address] Huong Foster APRN Lymphadenopathy (Primary Dx) 06/28/2023 [facility] [address] [place] [address], 9th [place] [address] Huong Foster APRN 06/18/2023 12:40 PM CDT - 06/18/2023 11:59 PM CDT Hospital Encounter Interventional Radiology [address] [place] [address], 4th [place] [address] Lizzy Brady, Neela Piedra MD Lymphadenopathy Discharge Disposition: Home 06/18/2023 12:11 PM CDT - 06/18/2023 12:39 PM CDT Hospital Encounter [facility] [address] [place] [address] Kelsea Peraza MD Abnormal finding on diagnostic imaging of other abdominal region including retroperitoneum; Encounter for other preprocedural examination Discharge Disposition: Home 06/18/2023 Travel 06/17/2023 12:36 PM CDT - 06/17/2023 11:59 PM CDT Hospital Encounter Interventional Radiology [address] [place] [address], 4th [place] [address] Kelsea Peraza MD Simon, Teresa Allen, PA-C Abdominal mass <Unspecified side; Unspecified site; Intra-abdominal and pelvic swelling, mass and lump> (Primary Dx); Reactive airway disease; Encounter for other preprocedural examination Discharge Disposition: Home 06/14/2023 Orders Only Main Interventional Radiology [address], 3rd [place] [address] Lynette Bradford PA-C Encounter for other preprocedural examination (Primary Dx) 06/07/2023 Orders Only Interventional Radiology [address] [facility], 4th [place] [address] Zoila Rogers PA-C Abnormal finding on diagnostic imaging of other abdominal region including retroperitoneum (Primary Dx) 06/07/2023 Telephone MD [facility] [address] [place] [address] Emily Sierra MA 06/02/2023 Orders Only Internal Medicine Center [address] [facility] Main Bldg, 9th [place] [address] Lizzy Brady APRN Lymphadenopathy (Primary Dx) 06/01/2023 Telephone [facility] [address] [facility] Main Bldg, 9th [place] [address] Elina Gaxiola, RN Appointment 05/18/2023 Orders Only Interventional Radiology [address] [facility], 4th [place] [address] Mikaela Reddy PA-C 05/10/2023 Orders Only [facility] [address], 9th [place] [address] Kelsea Peraza MD 05/07/2023 2:59 PM COMPUTER SOFTWARE ENGINEER - 05/07/2023 11:59 PM COMPUTER SOFTWARE ENGINEER Hospital [facility] [address] Bldg, 2nd [place] [address] Kelsea Peraza MD Lymphadenopathy; Abnormal finding on diagnostic imaging of other abdominal region including retroperitoneum Discharge Disposition: Home 05/07/2023 2:59 PM COMPUTER SOFTWARE ENGINEER - 05/07/2023 11:59 PM COMPUTER SOFTWARE ENGINEER Hospital Encounter [facility] [address] [place] [address], [place] [address] Huong Foster APRN Increased liver function (Primary Dx); Abnormal finding on diagnostic imaging of other abdominal region including retroperitoneum; 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; Peripheral vascular disease; FH: Cardiovascular disease; Reactive airway disease Discharge Disposition: Home 05/07/2023 12:55 PM COMPUTER SOFTWARE ENGINEER Ancillary Procedure CT Imaging [address] [facility], 7th [place] [address] Lizzy Brady APRN Abnormal finding on diagnostic imaging of other abdominal region including retroperitoneum; Lymphadenopathy 05/07/2023 11:00 AM COMPUTER SOFTWARE ENGINEER Office Visit [facility] [address] [place] [address], 9th [place] [address] Mansi Lui MD Potter, Lucy M, MD Lymphadenopathy (Primary Dx); Abnormal finding on diagnostic imaging of other abdominal region including retroperitoneum; 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 05/07/2023 Travel 05/06/2023 Orders Only [facility] [address] [place] [address], 9th [place] [address] Lizzy Brady APRN Abnormal finding on diagnostic imaging of other abdominal region including retroperitoneum (Primary Dx); Lymphadenopathy 04/06/2023 11:00 AM COMPUTER SOFTWARE ENGINEER NPR [facility] PATIENT ACCESS Mansi Lui MD 04/02/2023 8:00 PM COMPUTER SOFTWARE ENGINEER Ancillary Procedure Image Library [address] [place] [address] Mansi Lui MD Cancer 03/30/2023 Travel 03/24/2023 Telephone [facility] PATIENT ACCESS Remberto Sherwood RN after 11/11/2022 Surgical History Surgery Date Site/Laterality Comments LIVER BIOPSY CHOLECYSTECTOMY HERNIA REPAIR DENTAL SURGERY Medical History Medical History Date Comments Sinusitis Sexual dysfunction Gout Asthma Acid reflux Abdominal hernia Cirrhosis of liver Exposure to Hepatitis C virus 2003 Hypothyroidism Decreased liver function Insomnia Exposure to asbestos 1979 Viral hepatitis C without hepatic coma Treated in past Family History Medical History Relation Name Comments Colon cancer Sister Relation Name Status Comments Sister Alive Social History Tobacco Use Types Packs/Day Years Used Date Smoking Tobacco: Never Passive Smoke Exposure: Past Smokeless Tobacco: Never Tobacco Cessation:Counseling Given: Not Answered Alcohol Use Standard Drinks/Week Comments Yes 2 (1 standard drink = 0.6 oz pur e alcohol) Sex and Gender Information Value Date Recorded Sex Assigned at Not on file Gender Identity Not on file Sexual Orientation Not on file Job Start Date Occupation Industry Not on file Not on file Not on file Obstetrics History Last Filed Vital Signs Vital Sign Reading Time Taken Comments Blood Pressure 119/97 07/23/2023 1:44 PM CDT Pulse 90 07/23/2023 1:44 PM CDT Temperature 37.1 C (98.8 F) 07/23/2023 1:44 PM CD T Respiratory Rate 18 07/23/2023 1:44 PM CDT Oxygen Saturation 96% 07/23/2023 1:44 PM CDT Inhaled Oxygen Concentration - - Weight 103.2 kg (227 lb 8.2 oz) 07/23/2023 1:40 PM CDT Height 174 cm (5' 8.5") 05/07/2023 10:4 1 AM COMPUTER SOFTWARE ENGINEER Body Mass Index 34.09 05/07/2023 10:41 AM COMPUTER SOFTWARE ENGINEER Plan of Treatment Upcoming Encounters Date Type Department Care Team (Late st Contact Info) Description 11/30/2023 9:15 AM CDT Appointment [facility] [address] [place] [address] Hesham Masters MD [address] [place] [address] [email or web address] 11/30/2023 10:00 AM CDT Ancillary Procedure PET Imaging [address] [place] [address], 6th [place] [address] Hesham Masters MD [address] [place] [phone] [email or web address] 12/01/2023 2:00 PM CDT Follow-Up [facility] [address] [place] [address], 6th [place] [address] Hesham Masters MD [address] [place] [address] [email or web address] 12/06/2023 2:30 PM CDT Consult [facility] - Gastroenterology, Hepatology & Nutrition [address] [place] [address] Main Bldg, 7th [place] [address] Aaron Sosa MD [address] [place] [phone] [email or web address] Megan Rollins MD [address] [place] [address] [id number] [email or web address] Health Maintenance Due Date Last Done Comments COVID-19 Vaccine (#1) 07/25/1965 Pneumococcal Vaccine: 65+ Years (1 of 2 - PCV) 965 Influenza Vaccine 11/14/2023 Procedures Procedure Name Priority Date/Time Associated Diagnosis Comments PETCT F18 FDG (FLUORODEOXYGLUCOSE) WITH CONTRAST Routine 07/23/2023 1:13 PM CDT Follicular lymphoma grade II of lymph nodes of multiple sites HEMATOPATHOLOGY BONE MARROW DIFFERENTIAL Routine 07/23/2023 9:33 AM CDT Follicular lymphoma, NOS of intra-abdominal lymph nodes HEMATOPATHOLOGY BONE MARROW INTERPRETATION Routine 07/23/2023 9:33 AM CDT Follicular lymphoma, NOS of intra-abdominal lymph nodes MDA CP CG 24.5HR CULTURE Routine 07/23/2023 9:33 AM CDT Follicular lymphoma, NOS of intra-abdominal lymph nodes HP FC LYMPHOMA B INTERPRETATION AND REPORT Routine 07/23/2023 9:33 AM CDT Follicular lymphoma, NOS of intra-abdominal lymph nodes MDA CP CG 72HR CPG CULTURE Routine 07/23/2023 9:33 AM CDT Follicular lymphoma, NOS of intra-abdominal lymph nodes HP CG CHROMOSOME ANALYSIS INTERPRETATION AND REPORT Routine 07/23/2023 9:33 AM CDT Follicular lymphoma, NOS of intra-abdominal lymph nodes EVA ARIAS T(14;18) [facility]-BCL2 MBR QPCR ANALYSIS REPORT Routine 07/23/2023 9:33 AM CDT Follicular lymphoma, NOS of intra-abdominal lymph nodes EVA ARIAS T(11;14) [facility]-BCL1 QUANTITATIVE PCR ANALYSIS INTERPRETATION AND REPORT Routine 07/23/2023 9:33 AM CDT Follicular lymphoma, NOS of intra-abdominal lymph nodes [facility] CP CYTOGENETICS WORKUP Routine 07/23/2023 9:33 AM CDT Follicular lymphoma, NOS of intra-abdominal lymph nodes [facility] CP FLOW CYTOMETRY WORKUP - B-CELL LYMPHOMA Routine 07/23/2023 9:33 AM CDT Follicular lymphoma, NOS of intra-abdominal lymph nodes CT DIAGNOSTIC BONE MARROW BIOPSIES & ASPIRATIONS Routine 07/23/2023 9:23 AM CDT Follicular lymphoma, NOS of intra-abdominal lymph nodes .CBC Routine 07/23/2023 7:20 AM CDT Follicular lymphoma, grade 2 of intra-abdominal lymph nodes COMPLETE BLOOD COUNT W/ DIFFERENTIAL Routine 07/23/2023 7:20 AM CDT Follicular lymphoma, grade 2 of intra-abdominal lymph nodes PERIPHERAL SMR FOR BONE MARROW Routine 07/23/2023 7:20 AM CDT Follicular lymphoma, NOS of intra-abdominal lymph nodes CONFIRM ABORH TYPE Routine 07/09/2023 4: 04 PM CDT Follicular lymphoma grade II of lymph nodes of multiple sites PROTEIN ELECTROPHORESIS Routine 07/09/19 4:04 PM CDT Follicular lymphoma grade II of lymph nodes of multiple sites .CBC Routine 07/09/2023 4:04 PM CDT Follicular lymphoma grade II of lymph nodes of multiple sites HIV 1/2 ANTIGEN/ANTIBODY, FOURTH GEN W/RFL Routine 07/09/2023 4:04 PM CDT Follicular lymphoma grade II of lymph nodes of multiple sites HEPATITIS C VIRUS ANTIBODY Routine 07/09/2023 4:04 PM CDT Follicular lymphoma grade II of lymph nodes of multiple sites HEPATITIS B CORE ANTIBODY Routine 07/09/2023 4:04 PM CDT Follicular lymphoma grade II of lymph nodes of multiple sites HEPATITIS B SURFACE ANTIGEN Routine 07/09/2023 4:04 PM CDT Follicular lymphoma grade II of lymph nodes of multiple sites HEPATITIS B SURFACE ANTIBODY Routine 07/09/2023 4:04 PM CDT Follicular lymphoma grade II of lymph nodes of multiple sites THYROID STIMULATING HORMONE Routine 07/09/2023 4:04 PM CDT Follicular lymphoma grade II of lymph nodes of multiple sites FREE THYROXINE Routine 07/09/2023 4:04 PM CDT Follicular lymphoma grade II of lymph nodes of multiple sites BETA 2 MICROGLOBULIN Routine 07/09/2023 4:04 PM CDT Follicular lymphoma grade II of lymph nodes of multiple sites IMMUNOGLOBULIN M Routine 07/09/2023 4:04 PM CDT Follicular lymphoma grade II of lymph nodes of multiple sites IMMUNOGLOBULIN G Routine 07/09/2023 4:04 PM CDT Follicular lymphoma grade II of lymph nodes of multiple sites IMMUNOGLOBULIN A Routine 07/09/2023 4:04 PM CDT Follicular lymphoma grade II of lymph nodes of multiple sites PROTEIN ELECTROPHORESIS Routine 07/09/19 4:04 PM CDT Follicular lymphoma grade II of lymph nodes of multiple sites VITAMIN D 25 HYDROXY LEVEL Routine 07/09/2023 4:04 PM CDT Follicular lymphoma grade II of lymph nodes of multiple sites ELECTROLYTE PANEL Routine 07/09/2023 4:0 4 PM CDT Follicular lymphoma grade II of lymph nodes of multiple sites ASPARTATE AMINOTRANSFERASE Routine 07/09/2023 4:04 PM CDT Follicular lymphoma grade II of lymph nodes of multiple sites MAGNESIUM LEVEL Routine 07/09/2023 4:04 PM CDT Follicular lymphoma grade II of lymph nodes of multiple sites ALANINE AMINOTRANSFERASE Routine 07/09/2023 4:04 PM CDT Follicular lymphoma grade II of lymph nodes of multiple sites LACTATE DEHYDROGENASE Routine 07/09/2023 4:04 PM CDT Follicular lymphoma grade II of lymph nodes of multiple sites ALKALINE PHOSPHATASE Routine 07/09/2023 4:04 PM CDT Follicular lymphoma grade II of lymph nodes of multiple sites FRACTIONATED BILIRUBIN Routine 4:04 PM CDT Follicular lymphoma grade II of lymph nodes of multiple sites URIC ACID Routine 07/09/2023 4:04 PM CDT Follicular lymphoma grade II of lymph nodes of multiple sites CREATININE Routine 07/09/2023 4:04 PM CDT Follicular lymphoma grade II of lymph nodes of multiple sites BLOOD UREA NITROGEN Routine 07/09/2023 4 :04 PM CDT Follicular lymphoma grade II of lymph nodes of multiple sites GLUCOSE, RANDOM Routine 07/09/2023 4:04 PM CDT Follicular lymphoma grade II of lymph nodes of multiple sites PHOSPHORUS LEVEL Routine 07/09/2023 4:04 PM CDT Follicular lymphoma grade II of lymph nodes of multiple sites CALCIUM LEVEL Routine 07/09/2023 4:04 PM CDT Follicular lymphoma grade II of lymph nodes of multiple sites ALBUMIN LEVEL Routine 07/09/2023 4:04 PM CDT Follicular lymphoma grade II of lymph nodes of multiple sites TOTAL PROTEIN Routine 07/09/2023 4:04 PM CDT Follicular lymphoma grade II of lymph nodes of multiple sites TYPE AND SCREEN Routine 07/09/2023 4:04 PM CDT Follicular lymphoma grade II of lymph nodes of multiple sites APTT Routine 07/09/2023 4:04 PM CDT Follicular lymphoma grade II of lymph nodes of multiple sites PROTHROMBIN TIME Routine 07/09/2023 4:04 PM CDT Follicular lymphoma grade II of lymph nodes of multiple sites COMPLETE BLOOD COUNT W/ DIFFERENTIAL Routine 07/09/2023 4:04 PM CDT Follicular lymphoma grade II of lymph nodes of multiple sites ECHOCARDIOGRAM 2D COMPLETE Routine 07/09/2023 2:04 PM CDT Follicular lymphoma grade II of lymph nodes of multiple sites IR CT GUIDED BIOPSY ABDOMINAL NON-ORGAN 60 Routine 06/18/2023 3:11 PM CDT Lymphadenopathy PATHOLOGY BIOPSY INTERPRETATION Routine 06/18/2023 2:52 PM CDT Lymphadenopathy MDA CP PLATELET COUNT Routine 06/18/2023 12:34 PM CDT Abnormal finding on diagnostic imaging of other abdominal region including retroperitoneum BASIC METABOLIC PANEL, CALCIUM TOTAL Routine 06/18/2023 12:34 PM CDT Encounter for other preprocedural examination PROTHROMBIN TIME Routine 06/18/2023 12:3 4 PM CDT Abnormal finding on diagnostic imaging of other abdominal region including retroperitoneum PLATELET COUNT Routine 06/18/2023 12:34 PM CDT Abnormal finding on diagnostic imaging of other abdominal region including retroperitoneum HEPATITIS A IGM ANTIBODY SERUM Routine 05/07/2023 3:20 PM COMPUTER SOFTWARE ENGINEER Abnormal finding on diagnostic imaging of other abdominal region including retroperitoneum ODESSA MISC TEST Routine 05/07/2023 3:20 PM COMPUTER SOFTWARE ENGINEER Abnormal finding on diagnostic imaging of other abdominal region including retroperitoneum 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 Increased liver function Peripheral vascular disease FH: Cardiovascular disease Reactive airway disease .CBC Routine 05/07/2023 3:20 PM COMPUTER SOFTWARE ENGINEER Abnormal finding on diagnostic imaging of other abdominal region including retroperitoneum HEPATIC FUNCTION PANEL Routine 3:20 PM COMPUTER SOFTWARE ENGINEER Abnormal finding on diagnostic imaging of other abdominal region including retroperitoneum CHROMOGRANIN A Routine 05/07/2023 3:20 PM COMPUTER SOFTWARE ENGINEER Abnormal finding on diagnostic imaging of other abdominal region including retroperitoneum SEROTONIN LEVEL Routine 05/07/2023 3:20 PM COMPUTER SOFTWARE ENGINEER Abnormal finding on diagnostic imaging of other abdominal region including retroperitoneum HBV DNA QUANT Routine 05/07/2023 3:20 PM COMPUTER SOFTWARE ENGINEER 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 HEPATITIS E IGM AB Routine 05/07/2023 3 :20 PM COMPUTER SOFTWARE ENGINEER 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 HEPATITIS E IGG AB Routine 05/07/2023 3: 20 PM COMPUTER SOFTWARE ENGINEER 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 HEPATITIS D ANTIGEN Routine 05/07/2023 3 :20 PM COMPUTER SOFTWARE ENGINEER 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 HEPATITIS C VIRUS RNA DETECT/QUANT, SERUM Routine 05/07/2023 3:20 PM COMPUTER SOFTWARE ENGINEER 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 HEPATITIS C VIRUS ANTIBODY Routine 05/07/2023 3:20 PM COMPUTER SOFTWARE ENGINEER 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 HEPATITIS B CORE ANTIBODY Routine 05/07/2023 3:20 PM COMPUTER SOFTWARE ENGINEER 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 HEPATITIS B SURFACE ANTIGEN Routine 05/07/2023 3:20 PM COMPUTER SOFTWARE ENGINEER 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 HEPATITIS B SURFACE ANTIBODY Routine 05/07/2023 3:20 PM COMPUTER SOFTWARE ENGINEER 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 HEPATITIS A VIRUS PANEL Routine 05/07/19 3:20 PM COMPUTER SOFTWARE ENGINEER 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 PROSTATE SPECIFIC ANTIGEN Routine 05/07/2023 3:20 PM COMPUTER SOFTWARE ENGINEER Abnormal finding on diagnostic imaging of other abdominal region including retroperitoneum CARCINOEMBRYONIC ANTIGEN Routine 05/07/2023 3:20 PM COMPUTER SOFTWARE ENGINEER Abnormal finding on diagnostic imaging of other abdominal region including retroperitoneum CARBOHYDRATE ANTIGEN 19-9 Routine 05/07/2023 3:20 PM COMPUTER SOFTWARE ENGINEER Abnormal finding on diagnostic imaging of other abdominal region including retroperitoneum ALPHA FETOPROTEIN TUMOR MARKER Routine 05/07/2023 3:20 PM COMPUTER SOFTWARE ENGINEER Abnormal finding on diagnostic imaging of other abdominal region including retroperitoneum APTT Routine 05/07/2023 3:20 PM COMPUTER SOFTWARE ENGINEER Abnormal finding on diagnostic imaging of other abdominal region including retroperitoneum COMPLETE BLOOD COUNT W/ DIFFERENTIAL Routine 05/07/2023 3:20 PM COMPUTER SOFTWARE ENGINEER Abnormal finding on diagnostic imaging of other abdominal region including retroperitoneum PROTHROMBIN TIME Routine 05/07/2023 3:20 PM COMPUTER SOFTWARE ENGINEER Abnormal finding on diagnostic imaging of other abdominal region including retroperitoneum LACTATE DEHYDROGENASE Routine 05/07/2023 3:20 PM COMPUTER SOFTWARE ENGINEER Abnormal finding on diagnostic imaging of other abdominal region including retroperitoneum MAGNESIUM LEVEL Routine 05/07/2023 3:20 PM COMPUTER SOFTWARE ENGINEER Abnormal finding on diagnostic imaging of other abdominal region including retroperitoneum PHOSPHORUS LEVEL Routine 05/07/2023 3:20 PM COMPUTER SOFTWARE ENGINEER Abnormal finding on diagnostic imaging of other abdominal region including retroperitoneum CALCIUM LEVEL Routine 05/07/2023 3:20 PM COMPUTER SOFTWARE ENGINEER Abnormal finding on diagnostic imaging of other abdominal region including retroperitoneum GLUCOSE, RANDOM Routine 05/07/2023 3:20 PM COMPUTER SOFTWARE ENGINEER Abnormal finding on diagnostic imaging of other abdominal region including retroperitoneum CREATININE Routine 05/07/2023 3:20 PM COMPUTER SOFTWARE ENGINEER Abnormal finding on diagnostic imaging of other abdominal region including retroperitoneum BLOOD UREA NITROGEN Routine 05/07/2023 3 :20 PM COMPUTER SOFTWARE ENGINEER Abnormal finding on diagnostic imaging of other abdominal region including retroperitoneum ELECTROLYTE PANEL Routine 05/07/2023 3:2 0 PM COMPUTER SOFTWARE ENGINEER Abnormal finding on diagnostic imaging of other abdominal region including retroperitoneum CT CHEST ABDOMEN PELVIS W WO CONTRAST Routine 05/07/2023 2:26 PM COMPUTER SOFTWARE ENGINEER Abnormal finding on diagnostic imaging of other abdominal region including retroperitoneum Lymphadenopathy POC CREATININE Routine 05/07/2023 1:56 PM COMPUTER SOFTWARE ENGINEER EKG, 12-LEAD (SCHEDULED) Routine 05/07/2023 Lymphadenopathy Abnormal finding on diagnostic imaging of other abdominal region including retroperitoneum OSI CT ABDOMEN Routine 02/25/2023 12:25 PM COMPUTER SOFTWARE ENGINEER Cancer after 11/11/2022 Results * PETCT F18 FDG (Fluorodeoxyglucose) with contrast (07/23/2023 1:13 PM CDT) Anatomical Region Laterality Modality Whole Body Positron Emissio n Tomography (PET) 07/23/2023 5:12 PM CDT Impressions 07/23/2023 6:08 PM CDT Hypermetabolic 10.5 cm irregular central abdominal mesenteric mass and mildly enlarged hypermetabolic node along its left lateral aspect, suspicious for involvement from known lymphoma. This appears similar to prior CT 05/07/2023) appear mildly enlarged from CT 02/25/2023. Again seen hepatic cirrhosis. Moderate splenomegaly with upper abdominal varices including the gastroesophageal junction and distal esophageal/periesophageal varices suspicious for portal hypertension. 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 Recommendation: Hepatology consult Patient Message: Your imaging report may need follow-up action. Your care team will review the report to determine next steps. *An Actionable Finding is a finding that may be unrelated to the original reason for imaging but potentially actionable, meaning further investigation may be necessary. The Actionable Findings Vigilance Unit (AFVU) assists medical providers with responding to additional radiologic findings that are unexpected and potentially actionable. Narrative 07/23/2023 6:08 PM CDT FULL RESULT: Examination: 18F-FDG-PET/CT with contrast, 07/23/2023 1:13 PM Clinical History: Follicular lymphoma Indication: Initial treatment strategy. Initial staging. Comparison: CT scan dated 05/07/2023. Technique: F-18 fluorodeoxyglucose 5.2 mCi was administered intravenously via left antecubital vein. To allow for distribution and uptake of radiotracer, the patient was asked to rest quietly for approximately 60-90 minutes. PET/CT imaging was performed from the vertex of the skull to proximal thighs. CT scanning was done for attenuation correction, image registration, and diagnosis with scan parameters optimized to minimize radiation exposure to the patient. The CT portion of the examination was performed with intravenous contrast. SUV measurements are reported as maximum SUV based on body weight unless otherwise specified. Findings: Head and Neck: Couple subcentimeter nonenlarged mildly hypermetabolic left jugular cervical nodes (images 114, 108), for example 0.6 cm node with SUV max of 3.2 (image 114), may be inflammatory/reactive and followed. No suspicious enlarged hypermetabolic nodes. Mild mucosal thickening of some ethmoid sinuses, may be correlated clinically. Chest: Again seen few tiny too small to characterize sub-5 mm lung nodules (examples 6/157, 165, 222) similar to study 05/07/2023. These may be prior postinflammatory sequela and followed. No suspicious FDG avid hypermetabolic lung nodule or consolidation. No suspicious alexandra hypermetabolism. Atherosclerotic plaques along the aorta and coronary arteries. No pericardial or pleural effusion. Again seen multiple distal esophageal/periesophageal and gastroesophageal junction varices, suspicious for portal hypertension. Again seen small gastroesophageal hiatal hernia. Abdomen and Pelvis: Hypermetabolic 10.5 x 4.6 cm irregular central abdominal mesenteric alexandra mass with SUV max of 7 is suspicious for known lymphoma. This appear similar in size compared to 10.5 x 4.[address] 05/07/2023) appear mildly enlarged from 8.9 x 4[address] 02/25/2023. The hypermetabolic nodular focus along its left lateral aspect with SUV max of 6.6, corresponding to the hypermetabolic mesenteric node (4/324). Few prominent but subcentimeter in short axis retroperitoneal nodes (example 4/336, 326) without suspicious hypermetabolism may be reactive and followed. Similarly a few prominent and mildly enlarged periportal nodes measuring up to 1.4 cm (4/272) and some prominent left gastric nodes without suspicious hypermetabolism may be reactive and followed. Moderate splenomegaly measuring 18.4 cm craniocaudally, is otherwise without suspicious hypermetabolism compared to liver background activity. Again seen irregular nodular hepatic surface with hypertrophic left hepatic lobe suspicious for hepatic cirrhosis. No focal suspicious hypermetabolic lesion in the liver, spleen. Unremarkable pancreas, adrenals. No hydronephrosis. Inferomedial displacement of the left kidney due to mass effect from splenomegaly. Tiny subcentimeter indeterminate right renal lower pole hypodensity with hyperdense or enhancing rim may be minimally complicated cyst (4/215), may be followed. No hydronephrosis. Likely physiologic hypermetabolic activity along the urinary tract and bowel loops. Colonic diverticulosis is seen. Prior right inguinal herniorrhaphy changes. Musculoskeletal: Small linear hypermetabolic focus in the left posterior iliac bone with SUV max of 2.6 (images 290), likely from postprocedural inflammatory activity. Procedure Note Juan Encarnacion MD - 07/23/2023 FULL RESULT: Examination: 18F-FDG-PET/CT with contrast, 07/23/2023 1:13 PM Clinical History: Follicular lymphoma Indication: Initial treatment strategy. Initial staging. Comparison: CT scan dated 05/07/2023. Technique: F-18 fluorodeoxyglucose 5.2 mCi was administered intravenously via leftantecubital vein. To allow for distribution and uptake of radiotracer, thepatient was asked to rest quietly for approximately 60-90 minutes. PET/CTimaging was performed from the vertex of the skull to proximal thighs. CTscanning was done for attenuation correction, image registration, anddiagnosis with scan parameters optimized to minimize radiation exposure tothe patient. The CT portion of the examination was performed withintravenous contrast. SUV measurements are reported as maximum SUV basedon body weight unless otherwise specified. Findings: Head and Neck: Couple subcentimeter nonenlarged mildly hypermetabolic left jugularcervical nodes (images 114, 108), for example 0.6 cm node with SUV max of3.2 (image 114), may be inflammatory/reactive and followed. No suspiciousenlarged hypermetabolic nodes. Mild mucosal thickening of some ethmoidsinuses, may be correlated clinically. Chest: Again seen few tiny too small to characterize sub-5 mm lung nodules(examples 6/157, 165, 222) similar to study 05/07/2023. These may be priorpostinflammatory sequela and followed. No suspicious FDG avidhypermetabolic lung nodule or consolidation. No suspicious alexandra hypermetabolism. Atherosclerotic plaques along theaorta and coronary arteries. No pericardial or pleural effusion. Again seen multiple distal esophageal/periesophageal and gastroesophagealjunction varices, suspicious for portal hypertension. Again seen smallgastroesophageal hiatal hernia. Abdomen and Pelvis: Hypermetabolic 10.5 x 4.6 cm irregular central abdominal mesenteric nodalmass with SUV max of 7 is suspicious for known lymphoma. This appearsimilar in size compared to 10.5 x 4.[address] 05/07/2023) appear mildlyenlarged from 8.9 x 4[address] 02/25/2023. The hypermetabolic nodularfocus along its left lateral aspect with SUV max of 6.6, corresponding tothe hypermetabolic mesenteric node (4/324). Few prominent but subcentimeter in short axis retroperitoneal nodes(example 4/336, 326) without suspicious hypermetabolism may be reactiveand followed. Similarly a few prominent and mildly enlarged periportalnodes measuring up to 1.4 cm (4/272) and some prominent left gastric nodeswithout suspicious hypermetabolism may be reactive and followed. Moderate splenomegaly measuring 18.4 cm craniocaudally, is otherwisewithout suspicious hypermetabolism compared to liver backgroundactivity. Again seen irregular nodular hepatic surface with hypertrophic lefthepatic lobe suspicious for hepatic cirrhosis. No focal suspicioushypermetabolic lesion in the liver, spleen. Unremarkable pancreas,adrenals. No hydronephrosis. Inferomedial displacement of the left kidneydue to mass effect from splenomegaly. Tiny subcentimeter indeterminate right renal lower pole hypodensity withhyperdense or enhancing rim may be minimally complicated cyst (4/215), maybe followed. No hydronephrosis. Likely physiologic hypermetabolic activityalong the urinary tract and bowel loops. Colonic diverticulosis is seen.Prior right inguinal herniorrhaphy changes. Musculoskeletal: Small linear hypermetabolic focus in the left posterior iliac bone withSUV max of 2.6 (images 290), likely from postprocedural inflammatoryactivity. IMPRESSION: Hypermetabolic 10.5 cm irregular central abdominal mesenteric mass andmildly enlarged hypermetabolic node along its left lateral aspect,suspicious for involvement from known lymphoma. This appears similar toprior CT 05/07/2023) appear mildly enlarged from CT 02/25/2023. Again seen hepatic cirrhosis. Moderate splenomegaly with upper abdominalvarices including the gastroesophageal junction and distalesophageal/periesophageal varices suspicious for portal hypertension. ACTIONABLE ITEMS/RECOMMENDATIONS*: Significant Finding: Hepatic cirrhosiswith portal hypertension and gastroesophageal junction varices. Recommendation: Hepatology consult Patient Message: Your imaging report may need follow-up action. Your careteam will review the report to determine next steps. *An Actionable Finding is a finding that may be unrelated to the originalreason for imaging but potentially actionable, meaning furtherinvestigation may be necessary. The Actionable Findings Vigilance Unit(AFVU) assists medical providers with responding to additional radiologicfindings that are unexpected and potentially actionable. Sandie NUÑEZ IM PETCT ORDERABLES * Flow Cytometry Workup - B-Cell Lymphoma (07/23/2023 9:33 AM CDT) FLOW CYTOMETRY WORKUP TESTS TO ORDER FC Lymphoma B 07/26/2023 6:33 AM CDT FLOW CYTOMETRY Bone Marrow (Iliac Crest, Left Posterior, Aspirate) Non-blood Collection / Unknown 07/23/2023 9:33 AM CDT 07/23/2023 11:04 AM CDT Cynthia Damian APRN TANNER CP BIOMARKER WOR KUPS [facility] [address] [place], [place] [address] FLOW CYTOMETRY [facility] Flow Cytometry Laboratory [address] [place] [address] * CG 24.5HR CULTURE (07/23/2023 9:33 AM CDT) Bone Marrow (Iliac Crest, Left Posterior, Aspirate) Non-blood Collection / Unknown 07/23/2023 9:33 AM CDT 07/23/2023 11:25 AM CDT Cynthia Damian APRN, MDA CP BIOMARKER WOR KUPS CYTOGENETICS [facility] Cytogenetics Lab [address] [place] [address] * CG 72HR CPG Culture (07/23/2023 9:33 AM CDT) Bone Marrow (Iliac Crest, Left Posterior, Aspirate) Non-blood Collection / Unknown 07/23/2023 9:33 AM CDT 07/23/2023 11:25 AM CDT Cynthia Damian APRN, MDA CP BIOMARKER WOR KUPS Performing Organization Address City/[facility] Co de Phone Number CYTOGENETICS [facility] Cytogenetics Lab [address] [place] [id number] * Cytogenetics Workup (07/23/2023 9:33 AM CDT) Triage Comments The specimen received is negative or shows minimal disease which is beyond the FISH detection sensitivity. The cytogenetic lab will NOT perform the Lymphoma FISH test. Please contact Dr. Mari Silva if you have any questions. 09/17/2023 7:46 AM CDT CYTOGENETICS Bone Marrow (Iliac Crest, Left Posterior, Aspirate) Non-blood Collection / Unknown 07/23/2023 9:33 AM CDT 07/23/2023 11:25 AM CDT Cynthia Damian APRN, MDA CP BIOMARKER WOR KUPS CYTOGENETICS [facility] Cytogenetics Lab [address] [facility] [place] [address] * Hematopathology Bone Marrow Interpretation (07/23/2023 9:33 AM CDT) Diagnosis Bone marrow, left posterior iliac crest, biopsy, clot section, aspirate smears and touch imprint: Single lymphoid aggregate in cellular bone marrow (40%) with trilineage hematopoiesis (see comment) 07/27/2023 7:24 AM T [facility] Comment The patient has a history of follicular lymphoma. Immunohistochemical evaluation of the core biopsy shows that the lymphoid aggregate is resolving. No clear paratrabecular accumulations of CD79a or PAX5 positive B-cells are present. Flow immunophenotypic studies showed no evidence of clonal B-cell populations. Ancillary studies are in progress. The results will be reported separately. The morphologic findings suggest the possibility of minimal marrow involvement by a B-cell neoplasm. Repeat bone marrow biopsy and aspirate together with ancillary studies is suggested if clinically indicated. 07/27/2023 7:24 AM T [facility] Microscopic Description BONE MARROW BIOPSY Quality: Adequate Cellularity: 40% Megakaryocytes: Adequate Infiltrate: Single minute lymphoid aggregate approximating bony trabeculum BONE MARROW CLOT Quality: Adequate Cellularity: 40% Megakaryocytes: Adequate Infiltrate: Single minute lymphoid aggregate BONE MARROW SMEARS Quality / cellularity: Adequate Granulocytes: Maturing Erythrocytes: Maturing Megakaryocytes: Present Lymphocytes: Not increased, small with condensed chromatin 07/27/2023 7:24 AM T [facility] Gross Description B: Iliac crest, left posterior, biopsy Length: 1.1 cm Submitted in a single cassette for decalcification. DG C: Iliac crest, left posterior, clot Dimensions: 0.3 x 3.0 x 2.5 cm Specimen is entirely submitted in 1. DG 07/27/2023 7:24 AM T [facility] Disclaimer "Some tests reported here may have been developed and performance characteristics determined by [facility] Pathology and Laboratory Medicine. These tests have not been specifically cleared or approved by the U.S. Food and Drug Administration. If applicable, controls were reviewed and showed appropriate reactivity." Medical necessity justification for the immunohistochemical stains that were needed in addition to the flow cytometric immunophenotypic studies for the best diagnosis possible is as follows: The flow cytometric studies are not clearly passenger representative of all the features requiring evaluation in this specimen. 07/27/2023 7:24 AM CDT [facility] Bone Marrow (Iliac Crest, Left Posterior, Aspirate) Non-blood Collection / Unknown 07/23/2023 9:33 AM CDT 07/23/2023 10:53 AM CDT Bone marrow specimen (specimen) (Iliac Crest, Left Posterior, Biopsy) Non-blood Collection / Unknown 07/23/2023 9:33 AM CDT 07/23/2023 10:33 AM CDT Bone marrow specimen (specimen) (Iliac Crest, Left Posterior, Clot) 07/23/2023 9:33 AM CDT 07/23/2023 10:33 AM CDT Kelsea Peraza MD LAB PATHOLOGY ORDERA BLES [facility] [place] [address], * (ABNORMAL) Hematopathology Bone Marrow Differential (07/23/2023 9:33 AM CDT) Method Smear 07/26/2023 9:49 AM CDT [facility] Adequacy Satisfactory for evaluation 07/26/2023 9:49 AM CDT [facility] Total cells counted 500 07/26/2023 9:49 AM CDT [facility] BM Blast % 1 0 - 5 % 07/26/2023 9:49 AM CDT [facility] BM Progranulocyte % 2 2 - 8 % 07/26/2023 9:49 AM CDT [facility] BM Myelocyte % 8 5 - 20 % 07/26/2023 9:49 AM CDT [facility] BM Metamyelocyte % 11(L) 13 - 32 % 07/26/2023 9:49 AM CDT [facility] BM Granulocyte % 28 7 - 30 % 07/26/19 24 9:49 AM CDT [facility] BM Eosinophil % 4 0 - 4 % 4 9:49 AM CDT [facility] BM Lymphocyte % 11 3 - 17 % 9:49 AM CDT [facility] BM Plasma Cell % 1 0 - 2 % 07/26/19 9:49 AM CDT [facility] BM Monocyte % 2 0 - 5 % 07/26/2023 9:49 AM CDT [facility] BM Pronormoblast % 1 1 - 8 % 07/26/2023 9:49 AM CDT [facility] BM Normoblast % 31 7 - 32 % 9:49 AM CDT [facility] BM M:E Ratio 1.7(L) 3.0 - 4.0 07/26/2023 9:49 AM CDT [facility] Bone Marrow (Iliac Crest, Left Posterior, Aspirate) Non-blood Collection / Unknown 07/23/2023 9:33 AM CDT 07/23/2023 10:53 AM CDT Narrative [facility] - 07/26/2023 9:49 AM CDT DISCLAIMER Preliminary BM Diff may have been completed by a medical record retrieval specialist or a hematopathology fellow and is subject to change. Any pathologist updates will be included on interpretation and appear in the final result. Please use caution in evaluating your patient based on preliminary results. Kelsea Peraza MD LAB PATHOLOGY ORDERA JANA [facility] [place] [address], * CG Chromosome Analysis Interpretation and Report (07/23/2023 9:33 AM CDT) Clinical Indication Diagnosis: C82.93 - Follicular lymphoma, NOS of intra-abdominal lymph nodes [ICD-10-CM] 08/02/2023 12:03 PM CDT CYTOGENETICS Processed Specimen Type Bone Marrow 08/02/2023 12:03 PM CDT CYTOGENETICS Summary NORMAL MALE KARYOTYPE. 08/02/2023 12:03 PM CDT CYTOGENETICS Karyotype 46,XY[20] 08/02/2023 12:03 PM CDT CYTOGENETICS Chromosome Analysis Interpretation No apparent clonal cytogenetic abnormality detected. 08/02/2023 12:03 PM CDT CYTOGENETICS 24 hour Unstimulated Culture Yes 08/02/2023 12:03 PM CDT CYTOGENETICS 72 hour CPGIL2 Stimulated Culture Yes 08/02/2023 12:03 PM CDT CYTOGENETICS Cells Analyzed 20 08/02/2023 12:03 PM CDT CYTOGENETICS Cells Karyotyped 4 08/02/19 12:03 PM CDT CYTOGENETICS Normal Cells 20 08/02/2023 12:03 PM CDT CYTOGENETICS Chromosome Analysis Methodology Banding technique: GTL Imaging system: Leica Cytovision 08/02/2023 12:03 PM CDT CYTOGENETICS Chromosome Analysis Disclaimer This chromosomal analysis may not detect any "cryptic" chromosomal aberrations below current resolution, and clones with low mitotic index or at a low level. In applying this result to patient care, correlation with clinical, pathological and other laboratory findings are recommended. Data and/or image review for this report includes activity performed off-site at location: [id number] 08/02/2023 12:03 PM CDT CYTOGENETICS Pathologist Signature . 08/02/2023 12:03 PM CDT CYTOGENETICS Bone Marrow (Iliac Crest, Left Posterior, Aspirate) Non-blood Collection / Unknown 07/23/2023 9:33 AM CDT 07/23/2023 11:25 AM CDT Cynthia Damian APRN [facility] HP CYTOGENETICS (HP ) CYTOGENETICS [facility] [place] Cytogenetics Lab [address] [place] [address] * T(14:18) IGH-BCL2 MBR qPCR Interpretation and Report (07/23/2023 9:33 AM CDT) Pathology 07/28/2023 3:33 PM CDT MOLECULAR DIAGNOSTICS IGH/BCL2 Interpretation No evidence of an IGH-BCL2 fusion involving the major breakpoint region of the BCL2 gene is detected by quantitative real-time PCR. 07/28/2023 3:33 PM CDT MOLECULAR DIAGNOSTICS IGH/BCL2 Methodology DNA was extracted and analyzed using a quantitative real-time polymerase chain reaction (PCR) method for the presence of IGH-BCL2 fusion DNA sequences associated with the t(14;18)(q32;q21.3) in follicular lymphoma and diffuse large-cell lymphoma. The PCR-based assay is designed to detect translocation involving the major breakpoint region (MBR)1 for follow-up monitoring of cases with known MBR rearrangements which represent 60-70% of IGH-BCL2 fusions. The analytical sensitivity (lower limit of detection of this assay) is approximately one translocation bearing cell per 1,000 cells (0.1%). Kassidy Ayala et al. 'Novel 5' Exonuclease-Based Real-Time PCR A ssay for the Detection of t(14;18)(q32;q21) in Patients with Follicular Lymphoma.' Am J Pathol. 153.1 (1998): 63-68. Test performed on 07/28/2023 07/28/2023 3:33 PM CDT MOLECULAR DIAGNOSTICS IGH/BCL2 Comment This assay can be used to monitor minimal residual disease (MRD). Correlation with additional findings such as morphology, immunophenotyping and cytogenetics/FISH studies is recommended for complete evaluation. 07/28/2023 3:33 PM CDT MOLECULAR DIAGNOSTICS ASR DISCLAIMER This test was developed and its performance characteristics determined by the Molecular Diagnostics Laboratory ([facility]) at [facility]. It has not been cleared or approved by the U.S. Food and Drug Administration (FDA). The FDA has determined that such clearance or approval is not necessary. This test is used for clinical purposes. This laboratory is certified under the Clinical Laboratory Improvement Act (CLIA) of 1988 to perform high complexity clinical laboratory testing. 07/28/2023 3:33 PM CDT MOLECULAR DIAGNOSTICS Pathologist Signature . 07/28/2023 3:33 PM CDT MOLECULAR DIAGNOSTICS Bone Marrow (Iliac Crest, Left Posterior, Aspirate) Non-blood Collection / Unknown 07/23/2023 9:33 AM CDT 07/23/2023 1:08 PM CDT Cynthia VELASQUEZ MOLECULAR [facility] ([facility]) MOLECULAR DIAGNOSTICS [facility] Molecular Diagnostics Laboratory [address] [place] [address] * FC B-Cell Lymphoma Panel Interpretation and Report (07/23/2023 9:33 AM CDT) Lymphoma B Interpretation Bone Marrow, Iliac crest, left posterior, aspirate No immunophenotypic support for a B- or T-cell neoplasm. B cells are polytypic (or absent) T cells and NK cells are immunophenotypically unremarkable CD34+ myeloblasts are not increased. 07/27/2023 7:24 AM CDT FLOW CYTOMETRY Aberrant Population, Lymph B Panel None Detected 07/27/2023 7:24 AM CDT FLOW CYTOMETRY Gated Lymphocyte Region 9.5 % 07/27/2023 7:24 AM CDT FLOW CYTOMETRY CD3+ 63.4 % 07/27/2023 7:24 AM CDT FLOW CYTOMETRY CD3+CD4+ 41.3 % 07/27/2023 7:24 AM CDT FLOW CYTOMETRY CD3+CD8+ 20.4 % 07/27/2023 7:24 AM CDT FLOW CYTOMETRY CD19+ 14.4 % 07/27/2023 7:24 AM CDT FLOW CYTOMETRY CD56+ 10.2 % 07/27/2023 7:24 AM CDT FLOW CYTOMETRY ABERRANT CELL PHENOTYPE 07/27/2023 7:24 AM CDT FLOW CYTOMETRY Lymphoma B Markers Assessed CD3, CD4, CD5, CD8, CD10, CD11c, CD19, CD20, CD22, CD23, CD34, CD38, CD43, CD45, CD56, ROR1, CD200, Stacy, Lambda 07/27/2023 7:24 AM CDT FLOW CYTOMETRY Disclaimer Interpretive comment s are based on review by the pathologist of the results of each antibody of this specimen. This test was developed and its performance characteristics determined by [facility] Clinical Flow Cytometry Laboratory. It has not been cleared or approved by the US Food and Drug Administration. FDA does not require this test go through premarket FDA review. This test is used for clinical purposes. It should not be regarded as investigational or for research. This laboratory is certified under the Clinical Laboratory Improvement Amendment of 1988 (CLIA) as qualified to perform high complexity clinical laboratory testing. 07/27/2023 7:24 AM CDT FLOW CYTOMETRY Pathologist Signature . 07/27/2023 7:24 AM CDT FLOW CYTOMETRY Bone Marrow (Iliac Crest, Left Posterior, Aspirate) Non-blood Collection / Unknown 07/23/2023 9:33 AM CDT 07/23/2023 11:04 AM CDT Cynthia Damian LUIS HART HP FLOW CYTOMETR Y (HP FC) FLOW CYTOMETRY [facility] Flow Cytometry Laboratory [address] [place] [address] * t(11;14) IGH-BCL1 Quantitative PCR Interpretation and Report (07/23/2023 9:33 AM CDT) Pathology 07/29/2023 4:15 PM CDT MOLECULAR DIAGNOSTICS IGH/BCL1 Interpretation There is no evidence of an IGH-CCND1 fusion involving the major translocation cluster region by quantitative real-time PCR. 07/29/2023 4:15 PM CDT MOLECULAR DIAGNOSTICS IGH/BCL1 Methodology DNA was extracted and analyzed using a quantitative real-time polymerase chain reaction method for the presence of IGH-CCND1 fusion DNA sequences associated with t(11;14)(q13;q32) involving the major translocation cluster (MTC) region. This assay will only detect IGH-CCND1 rearrangements in the 30-40% of mantle cell lymphomas that have translocations involving the MTC region.1 Conventional karyotyping and FISH studies can be used to evaluate for IGH-CCND1 rearrangements outside of this region. The lower limit of detection of this assay is approximately one mutation-bearing cell in 1,000 cells (0.1%). Kassidy Ayala et al. "Real-time 5'-->3' exonuclease-based PCR assay for detection of the t(11;14)(q13;q32) ." Am J Pathol. 112.4 (1998): 524-530. Test performed on 07/29/2023 07/29/2023 4:15 PM CDT [facility]ST[facility] IGH/BCL1 Comment This assay can be used to monitor minimal residual disease (MRD). 07/29/2023 4:15 PM CDT [facility]NOST[facility] ASR DISCLAIMER This test was developed and its performance characteristics determined by the Molecular Diagnostics Laboratory ([facility]DL) at [facility]. It has not been cleared or approved by the U.S. Food and Drug Administration (FDA). The FDA has determined that such clearance or approval is not necessary. This test is used for clinical purposes. This laboratory is certified under the Clinical Laboratory Improvement Act (CLIA) of 1988 to perform high complexity clinical laboratory testing. 07/29/2023 4:15 PM CDT [facility]ST[facility] Pathologist Signature . 07/29/2023 4:15 PM CDT [facility]ST[facility] Bone Marrow (Iliac Crest, Left Posterior, Aspirate) Non-blood Collection / Unknown 07/23/2023 9:33 AM CDT 07/23/2023 1:08 PM CDT Cynthia Damian APRN [facility] MOLECULAR MYRA GNOSTICS (EVA ARIAS) MOLECULAR DIAGNOSTICS [facility] Molecular Diagnostics Laboratory [address] [place] [address] * CT DIAGNOSTIC BONE MARROW BIOPSIES & ASPIRATIONS (07/23/2023 9:23 AM CDT) Bone Marrow Narrative Garett Núñez APRN - 07/23/2023 9:23 AM CDT Garett Núñez APRN 07/23/2023 9:39 AM Procedure: Bone Marrow Aspiration/Biopsy Date/Time: 07/23/2023 9:23 AM Provider Information: Performed by: Garett Núñez APRN Authorized by: Cynthia Damian APRN Developer Programmer Analyst present: yes Developer Programmer Analyst: Bethanie Welch RT vp digital marketing used?: field marketing lead not needed Patient Diagnosis: Pre-procedure diagnosis: Follicular lymphoma Post-procedure diagnosis: unchanged Indication: Indication: evaluation of disease status and diagnosis/evaluation of hematopoietic dysfunction Anesthesia: Anesthesia: local infiltration Patient anesthetized by: advanced practice provider Local anesthetic: lidocaine 1% without epinephrine Anesthetic total (ml): 20 Sedation: Patient sedated?: patient not sedated Aspirate Site(s): Laterality: left Site location: posterior iliac crest Instrument(s) used: [place] needle Instruments placed by: advanced practice provider Biopsy Site(s): Laterality: left Site location: posterior iliac crest Instrument(s) used: [place] needle Instruments placed by: advanced practice provider Dressing: Dressing: compression bandage and gel foam Post-Procedure Patient Assessment: Patient tolerance: well Estimated blood loss: minimal Complications/Observations: no complications Pre-procedure pain scale: 0/10 Greater than 20ccs of Lidocaine given?: No Post-procedure pain scale: 0/10 Discharge/Disposition: Discharge instructions: verbal and patient verbalized understanding Patient discharged to: discharge to home Disposition mode: ambulatory Sample Disposition: Testing performed: flow cytometry, molecular and cytogenetics Research samples(s): no Aspirate volume obtained (mL) - left: 15 Visual assessment for aspirate specimen adequacy - left: particles Visual assessment for biopsy specimen adequacy (cm) - left: 1.3 Biopsy specimen integrity - left: whole Comments: Patient was identified by name, MRN, and . Laboratory values, allergies, and medications were reviewed. Discussed bone marrow aspiration and biopsy procedure and potential risks with patient. Patient signed consent for the procedure. After the procedure, pressure was held, hemostasis was achieved, and pressure bandage with gel foam was applied with the time, date, and my initials written on the bandage. Patient tolerated procedure well with no complications. Patient was instructed to keep the area dry for 48 hours, no showers/baths, and verbalized understanding. Specimen labels were verified. Cynthia Damian APRN PROCEDURE/MINOR SURG ICAL ORDERABLES * (ABNORMAL) .CBC (07/23/2023 7:20 AM CDT) Only the most recent of3 resultswithin the time period is included. White Blood Cell 3.9(L) 4.1 - 10.5 K/uL 07/23/2023 7:38 AM CDT [facility] Comment:This result was prev iously suppressed from the chart. Red Blood Cell 4.80 4.30 - 6.04 M/uL 07/23/2023 7:38 AM CDT [facility] [place] Comment:This result was prev iously suppressed from the chart. Hemoglobin 15.0 13.3 - 17.4 g/dL 07/23/2023 7:[address] [facility] Comment:This result was prev iously suppressed from the chart. Hematocrit 43.0 39.5 - 51.8 % 07/23/2023 7:38 AM [facility] Comment:This result was prev iously suppressed from the chart. Mean Cell Volume 90 82 - 99 fL 07/23/2023 7:38 AM [facility] Comment:This result was prev iously suppressed from the chart. Mean Cell Hemoglobin 31.3 26.6 - 33.2 pg 07/23/2023 7:38 AM [facility] Comment:This result was prev iously suppressed from the chart. Mean Cell Hemoglobin Concentration 34.9 31.1 - 35.2 g/dL 07/23/2023 7:38 AM [facility] Comment:This result was prev iously suppressed from the chart. RDW-SD 42.9 37.5 - 49.7 fL 07/23/2023 7:38 AM [facility] Comment:This result was prev iously suppressed from the chart. Red Cell Diameter Width 13.1 11.6 - 15.5 % 07/23/2023 7:38 AM [facility] Comment:This result was prev iously suppressed from the chart. Platelet 58(L) 160 - 397 K/uL 07/23/2023 7:38 AM [facility] Comment:This result was prev iously suppressed from the chart. Mean Platelet Volume 11.2 9.1 - 12.6 fL 07/23/2023 7:38 AM [facility] Comment:This result was prev iously suppressed from the chart. INRBC 0.0 0.0 - 0.1 /100 WBC 07/23/2023 7:38 AM [facility] Comment: The INRBC (instrument NRBC) value reflects the enumeration of nucleated red blood cells contained in a 200uL sample of whole blood analyzed by the instrument. This value may differ from the NRBC value reported in a manual differential, which is based on a 100 cell differential. This result was previously suppressed from the chart. Neutrophil % 69.5 43.2 - 72.7 % 07/23/2023 7:38 AM [facility] Comment:This result was prev iously suppressed from the chart. Lymphocyte % 11.8(L) 16.8 - 46.2 % 07/23/2023 7:38 AM [facility] Comment:This result was prev iously suppressed from the chart. Monocyte % 11.0 5.1 - 12.5 % 07/23/2023 7:38 AM [facility] Comment:This result was prev iously suppressed from the chart. Eosinophil % 7.2(H) 0.4 - 6.3 % 07/23/2023 7:38 AM [facility] Comment:This result was prev iously suppressed from the chart. Basophil % 0.5 0.2 - 1.4 % 07/23/2023 7:38 AM [facility] Comment:This result was prev iously suppressed from the chart. IGRE % 0.0(L) 0.1 - 1.5 % 07/23/2023 7:38 AM [facility] Comment: The IGRE% includes Metamyelocytes, Myelocytes and Promyelocytes. This result was previously suppressed from the chart. Neutrophil Abs 2.72 1.95 - 7.25 K/uL 07/23/2023 7:38 AM [facility] Comment:This result was prev iously suppressed from the chart. Lymphocyte Abs 0.46(L) 1.01 - 3.24 K/uL 07/23/2023 7:38 AM [facility] Comment:This result was prev iously suppressed from the chart. Monocyte Abs 0.43 0.24 - 0.85 K/uL 07/23/2023 7:38 AM [facility] Comment:This result was prev iously suppressed from the chart. Eosinophil Abs 0.28 0.02 - 0.50 K/uL 07/23/2023 7:38 AM [facility] Comment:This result was prev iously suppressed from the chart. Basophil Abs 0.02 0.02 - 0.09 K/uL 07/23/2023 7:38 AM [facility] Comment:This result was prev iously suppressed from the chart. IG Abs 0.00(L) 0.01 - 0.12 K/uL 07/23/2023 7:38 AM [facility] Comment:This result was prev iously suppressed from the chart. Blood Peripheral blood specimen / Unknown Venipuncture / Unknown 07/23/2023 7:20 AM CDT 07/23/2023 7:21 AM CDT Nadege Monica Parker BIOMEDICAL MANAGER LAB BLOOD ORDERABLES [facility] Unless otherwise noted, all lab tests performed by: Division of Pathology and Laboratory Medicine [address] [place] [id number] * Peripheral Smear for Bone Marrow (07/23/2023 7:20 AM CDT) Blood Peripheral blood specimen / Unknown Venipuncture / Unknown 07/23/2023 7:20 AM CDT 07/23/2023 7:21 AM CDT Cynthia Rickie BIOMEDICAL MANAGER LAB BLOOD ORDERABLES Performing Organization Address [facility] Co de Phone Number [facility] Unless otherwise noted, all lab tests performed by: Division of Pathology and Laboratory Medicine [address] [place] [id number] * Serum Protein Electrophoresis (07/09/2023 4:04 PM CDT) Albumin 4.4 3.6 - 5.4 gm/dL 07/12/2023 4:59 PM CDT [facility] Alpha 1 Globulin 0.2 0.2 - 0.4 gm/dL 07/12/2023 4:59 PM CDT [facility] Alpha 2 Globulin 0.7 0.5 - 1.0 gm/dL 07/12/2023 4:59 PM CDT [facility] Beta Globulin 0.8 0.5 - 1.1 gm/dL 07/12/2023 4:59 PM CDT [facility] Gamma Globulin 1.6 0.7 - 1.6 gm/dL 07/12/2023 4:59 PM CDT [facility] SPE Path Interp The serum protein electrophoretic pattern does not show definite evidence of a M-protein peak. If a paraproteinemia is suspected clinically, serum free light chain studies, serum protein NAVARRO studies, serum immunoglobulin quantitation and urine Bence-[place] protein studies are recommended. 07/12/2023 4:59 PM CDT [facility] Pathologist Signature . 07/12/2023 4:59 PM CDT [facility] Total Protein 7.8 6.4 - 8.3 gm/dL 07/12/2023 4:59 PM CDT [facility] Blood Peripheral blood specimen / Unknown Venipuncture / Unknown 07/09/2023 4:04 PM CDT 07/09/2023 4:17 PM CDT Sandie NUÑEZ LAB BLOOD ORDERABLES [facility] Unless otherwise noted, all lab tests performed by: Division of Pathology and Laboratory Medicine [address] [place] [id number] * Glucose, Random (07/09/2023 4:04 PM CDT) Only the most recent of2 resultswithin the time period is included. Glucose Random 96 70 - 199 mg/dL 07/09/2023 5:20 PM CDT [facility] Blood Peripheral blood specimen / Unknown Venipuncture / Unknown 07/09/2023 4:04 PM CDT 07/09/2023 4:17 PM CDT Narrative [facility] - 07/09/2023 5:20 PM CDT Effective 10/09/15, the glucose reference intervals have been updated based on [place] [employer] guidelines (Standards of Medical Care in Diabetes 2016. Diabetes Care 2016; 39: S13-S22). Fasting blood glucose: Normal: 70-99 mg/dL Impaired fasting glucose (increased risk for diabetes or pre-diabetes): 100-125 mg/dL Diabetes mellitus: >/=126 mg/dL Random blood glucose: Normal: 70-199 mg/dL Note: Random glucose >100 mg/dL is associated with increased risk for diabetes Sandie NUÑEZ LAB BLOOD ORDERABLES [facility] Unless otherwise noted, all lab tests performed by: Division of Pathology and Laboratory Medicine [address] [place] [id number] * HIV 1/2 Antigen/Antibody, Fourth Gen W/RFL (07/09/2023 4:04 PM CDT) Pathologist [facility] HIV Ag/Ab, 4TH Gen NON-REACT PEBBLES NON-REACT PEBBLES 07/10/2023 4:56 AM CDT HARMAN OBRIEN) Comment: HIV-1 antigen and HIV-1/HIV-2 antibodies were not detected. There is no laboratory evidence of HIV infection. PLEASE NOTE: This information has been disclosed to you from records whose confidentiality may be protected by state law. If your state requires such protection, then the state law prohibits you from making any further disclosure of the information without the specific written consent of the person to whom it pertains, or as otherwise permitted by law. A general authorization for the release of medical or other information is NOT sufficient for this purpose. For additional information please refer to http://education.Lifesquare/faq/BPN905 (This link is being provided for informational/ educational purposes only.) The performance of this assay has not been clinically validated in patients less than 2 years old. Blood Peripheral blood specimen / Unknown Venipuncture / Unknown 07/09/2023 4:04 PM CDT 07/09/2023 4:17 PM CDT Narrative HARMAN OBRIEN) - 07/10/2023 4:56 AM CDT Performing Organization Information: [facility] [address] [place] [phone] Jennifer Baker Sandie NUÑEZ LAB BLOOD ORDERABLES HARMAN OBRIEN) * (ABNORMAL) Fractionated Bilirubin (07/09/2023 4:04 PM CDT) Pathologist [facility] Bilirubin Direct 0.4(H) 0.0 - 0.3 mg/dL 07/09/2023 5:20 PM CDT [facility] [place] Comment:Indocyanine Green (I CG) may cause falsely elevated bilirubin results. Total and direct bilirubin must not be measured from samples containing indocyanine green. Bilirubin Indirect 1.3(H) 0.0 - 0.9 mg/dL 07/09/2023 5:20 PM CDT [facility] Bilirubin Total 1.7(H) 0.0 - 1.2 mg/dL 07/09/2023 5:20 PM CDT [facility] Comment:Indocyanine Green (I CG) may cause falsely elevated bilirubin results. Total and direct bilirubin must not be measured from samples containing indocyanine green. False elevation of total bilirubin can be seen in patients with IgG concentrations above 28 g/L. Blood Peripheral blood specimen / Unknown Venipuncture / Unknown 07/09/2023 4:04 PM CDT 07/09/2023 4:17 PM CDT Sandie NUÑEZ LAB BLOOD ORDERABLES Performing Organization Address [facility] Co de Phone Number [facility] Unless otherwise noted, all lab tests performed by: Division of Pathology and Laboratory Medicine [address] [place] [id number] * (ABNORMAL) Hepatitis C Virus Ab (07/09/2023 4:04 PM CDT) Only the most recent of2 resultswithin the time period is included. HCVAb. Reactive(A ) Non Reactive 07/11/2023 10:22 AM CDT [facility] Blood Peripheral blood specimen / Unknown Venipuncture / Unknown 07/09/2023 4:04 PM CDT 07/09/2023 4:17 PM CDT Narrative [facility] - 07/11/2023 10:22 AM CDT Antibody detection in the immunocompromised and immunosuppressed population may be delayed or absent entirely. Therefore serial testing, correlation with other clinical findings, and supplemental testing (if available) should be taken into consideration when interpreting the results. Sandie NUÑEZ LAB BLOOD ORDERABLES Performing Organization Address [facility] Co de Phone Number [facility] Unless otherwise noted, all lab tests performed by: Division of Pathology and Laboratory Medicine [address] [place] [id number] * Hepatitis B Total Ig Core Ab (SCREENING) (anti-HBc total Ig; HBcAb total Ig) (07/09/2023 4:04 PM CDT) Only the most recent of2 resultswithin the time period is included. Pathologist [facility] HBcAb. Non Reactive Non Reactive 07/11/2023 10:20 AM CDT [facility] Blood Peripheral blood specimen / Unknown Venipuncture / Unknown 07/09/2023 4:04 PM CDT 07/09/2023 4:17 PM CDT Sandie NUÑEZ LAB BLOOD ORDERABLES [facility] Unless otherwise noted, all lab tests performed by: Division of Pathology and Laboratory Medicine [address] [place] [id number] * Confirm ABORh (07/09/2023 4:04 PM CDT) Pathologist [facility] ABORh Confirm A NEG 07/09/2023 4:01 PM CDT [facility] Blood Peripheral blood specimen / Unknown Venipuncture / Unknown 07/09/2023 4:04 PM CDT 07/09/2023 4:17 PM CDT Sandie NUÑEZ BLOOD BANK TEST ORDE RABLES [facility] TRAN[facility] Transfusion Services [address] [place] [address] [id number] [place] [address] * aPTT (07/09/2023 4:04 PM CDT) Only the most recent of2 resultswithin the time period is included. Pathologist [facility] Activated PTT 25.9 24.1 - 35.5 second(s) 07/09/2023 5:06 PM CDT [facility] Blood Peripheral blood specimen / Unknown Venipuncture / Unknown 07/09/2023 4:04 PM CDT 07/09/2023 4:16 PM CDT Sandie NUÑEZ LAB BLOOD ORDERABLES Performing Organization Address City/[facility] Co de Phone Number [facility] Unless otherwise noted, all lab tests performed by: Division of Pathology and Laboratory Medicine [address] [place] [id number] * Vitamin D 25OH (07/09/2023 4:04 PM CDT) [facility] Vitamin D 25 OH 30 30 - 100 ng/mL 07/09/2023 5:20 PM CDT [facility] Blood Peripheral blood specimen / Unknown Venipuncture / Unknown 07/09/2023 4:04 PM CDT 07/09/2023 4:17 PM CDT Narrative [facility] - 07/09/2023 5:20 PM CDT Reference Range: Deficiency: <=20 ng/mL Insufficiency: 21-29 ng/mL Sufficiency: 30-100 ng/mL Potential toxicity: >100 ng/mL Sandie NUÑEZ LAB BLOOD ORDERABLES Performing Organization Address [facility] Co de Phone Number [facility] Unless otherwise noted, all lab tests performed by: Division of Pathology and Laboratory Medicine [address] [place] [id number] * Hepatitis B Surface Antibody (07/09/2023 4:04 PM CDT) Only the most recent of2 resultswithin the time period is included. [facility] HBsAb Non Reactive 07/11/2023 10:22 AM CDT [facility] Blood Peripheral blood specimen / Unknown Venipuncture / Unknown 07/09/2023 4:04 PM CDT 07/09/2023 4:17 PM CDT Narrative [facility] - 07/11/2023 10:22 AM CDT Vaccinated individual: Reactive Unvaccinated individual: Non-Reactive Sandie NUÑEZ LAB BLOOD ORDERABLES Performing Organization Address City/[facility] Co de Phone Number [facility] Unless otherwise noted, all lab tests performed by: Division of Pathology and Laboratory Medicine [address] [place] [id number] * Hepatitis B Surface Ag (07/09/2023 4:04 PM CDT) Only the most recent of2 resultswithin the time period is included. HBsAg. Non Reactive Non Reactive 07/11/2023 10:21 AM CDT [facility] Blood Peripheral blood specimen / Unknown Venipuncture / Unknown 07/09/2023 4:04 PM CDT 07/09/2023 4:17 PM CDT Sandie NUÑEZ LAB BLOOD ORDERABLES Performing Organization Address City/[facility] de Phone Number [facility] Unless otherwise noted, all lab tests performed by: Division of Pathology and Laboratory Medicine [address] [place] [id number] * (ABNORMAL) Prothrombin Time (07/09/2023 4:04 PM CDT) Only the most recent of3 resultswithin the time period is included. [facility] Prothrombin Time 14.9(H) 11.9 - 14.5 second(s) 07/09/2023 5:06 PM CDT [facility] International Normalization Ratio 1.17(H) 0.87 - 1.12 07/09/2023 5:06 PM CDT [facility] Blood Peripheral blood specimen / Unknown Venipuncture / Unknown 07/09/2023 4:04 PM CDT 07/09/2023 4:16 PM CDT Sandie NUÑEZ LAB BLOOD ORDERABLES Performing Organization Address City/[facility]/ZIP Co de Phone Number [facility] Unless otherwise noted, all lab tests performed by: Division of Pathology and Laboratory Medicine [address] [place] [id number] * Type and Screen (07/09/2023 4:04 PM CDT) Pathologist [facility] ABORh A NEG 07/09/2023 3:57 PM CDT [facility] ABSC Negative 07/09/2023 3:57 PM CDT [facility] Clot Expiration 07/12/2023 23:59 07/09/2023 3:57 PM CDT [facility] Historical Record Check No History 07/09/2023 3:57 PM CDT [facility] Blood Peripheral blood specimen / Unknown Venipuncture / Unknown 07/09/2023 4:04 PM CDT 07/09/2023 4:17 PM CDT Sandie NUÑEZ BLOOD BANK TEST ORDE RABLES [facility] TRANSF[facility]ION SERVICES [facility] Transfusion Services [address] [place] [address] [id number] [place] [address] * Uric Acid (07/09/2023 4:04 PM CDT) Uric Acid 5.3 3.4 - 7.0 mg/dL 07/09/2023 5:20 PM CDT [facility] Blood Peripheral blood specimen / Unknown Venipuncture / Unknown 07/09/2023 4:04 PM CDT 07/09/2023 4:17 PM CDT Sandie NUÑEZ LAB BLOOD ORDERABLES Performing Organization Address City/[facility]/ZIP Co de Phone Number [facility] Unless otherwise noted, all lab tests performed by: Division of Pathology and Laboratory Medicine [address] [place] [id number] * BUN (07/09/2023 4:04 PM CDT) Only the most recent of2 resultswithin the time period is included. BUN 16 6 - 23 mg/dL 07/09/2023 5:20 PM CDT [facility] Blood Peripheral blood specimen / Unknown Venipuncture / Unknown 07/09/2023 4:04 PM CDT 07/09/2023 4:17 PM CDT Sandie NUÑEZ LAB BLOOD ORDERABLES [facility] Unless otherwise noted, all lab tests performed by: Division of Pathology and Laboratory Medicine [address] [place] [id number] * Alanine Aminotransferase (07/09/2023 4:04 PM CDT) ALT 31 <=41 U/L 07/09/2023 5:2 0 PM CDT [facility] Blood Peripheral blood specimen / Unknown Venipuncture / Unknown 07/09/2023 4:04 PM CDT 07/09/2023 4:17 PM CDT Sandie NUÑEZ LAB BLOOD ORDERABLES [facility] Unless otherwise noted, all lab tests performed by: Division of Pathology and Laboratory Medicine [address] [place] [address] [id number] * Aspartate Aminotransferase (07/09/2023 4:04 PM CDT) AST 26 <=40 U/L 07/09/2023 5:2 0 PM CDT [facility] Blood Peripheral blood specimen / Unknown Venipuncture / Unknown 07/09/2023 4:04 PM CDT 07/09/2023 4:17 PM CDT Sandie NUÑEZ LAB BLOOD ORDERABLES [facility] Unless otherwise noted, all lab tests performed by: Division of Pathology and Laboratory Medicine [address] [place] [id number] * TSH (07/09/2023 4:04 PM CDT) Thyroid Stimulating Hormone 2.88 0.27 - 4.20 mcunit/mL 07/09/2023 5:20 PM CDT [facility] Blood Peripheral blood specimen / Unknown Venipuncture / Unknown 07/09/2023 4:04 PM CDT 07/09/2023 4:17 PM CDT Sandie NUÑEZ LAB BLOOD ORDERABLES [facility] [facility] Unless otherwise noted, all lab tests performed by: Division of Pathology and Laboratory Medicine [address] [place] [id number] * Free T4 (07/09/2023 4:04 PM CDT) [facility] T4 (Thyroxine) Free 1.23 0.93 - 1.70 ng/dL 07/09/2023 5:20 PM CDT [facility] Blood Peripheral blood specimen / Unknown Venipuncture / Unknown 07/09/2023 4:04 PM CDT 07/09/2023 4:17 PM CDT Sandie NUÑEZ LAB BLOOD ORDERABLES Performing Organization Address [facility] Co de Phone Number [facility] Unless otherwise noted, all lab tests performed by: Division of Pathology and Laboratory Medicine [address] [place] [id number] * Total Protein (07/09/2023 4:04 PM CDT) [facility] Tot Protein 7.8 6.4 - 8.3 gm/dL 07/09/2023 5:20 PM CDT [facility] Blood Peripheral blood specimen / Unknown Venipuncture / Unknown 07/09/2023 4:04 PM CDT 07/09/2023 4:17 PM CDT Narrative [facility] - 07/09/2023 5:20 PM CDT Reference range established based on adult population Sandie NUÑEZ LAB BLOOD ORDERABLES Performing Organization Address City/[facility] Co de Phone Number [facility] Unless otherwise noted, all lab tests performed by: Division of Pathology and Laboratory Medicine [address] [place] [id number] * Phosphorus Level (07/09/2023 4:04 PM CDT) Only the most recent of2 resultswithin the time period is included. [facility] Phosphorus Level 3.8 2.5 - 4.5 mg/dL 07/09/2023 5:20 PM CDT [facility] Blood Peripheral blood specimen / Unknown Venipuncture / Unknown 07/09/2023 4:04 PM CDT 07/09/2023 4:17 PM CDT Sandie NUÑEZ LAB BLOOD ORDERABLES Performing Organization Address City/[facility] Co de Phone Number [facility] Unless otherwise noted, all lab tests performed by: Division of Pathology and Laboratory Medicine [address] [place] [id number] * Alkaline Phosphatase (07/09/2023 4:04 PM CDT) Alkaline Phosphatase 82 40 - 129 U/L 07/09/2023 5:20 PM CDT [facility] Blood Peripheral blood specimen / Unknown Venipuncture / Unknown 07/09/2023 4:04 PM CDT 07/09/2023 4:17 PM CDT Sandie NUÑEZ LAB BLOOD ORDERABLES Performing Organization Address [facility] Co de Phone Number [facility] Unless otherwise noted, all lab tests performed by: Division of Pathology and Laboratory Medicine [address] [place] [id number] * Magnesium Level (07/09/2023 4:04 PM CDT) Only the most recent of2 resultswithin the time period is included. Magnesium Level 2.5 1.6 - 2.6 mg/dL 07/09/2023 5:20 PM CDT [facility] Blood Peripheral blood specimen / Unknown Venipuncture / Unknown 07/09/2023 4:04 PM CDT 07/09/2023 4:17 PM CDT Sandie NUÑEZ LAB BLOOD ORDERABLES Performing Organization Address City/[facility]/ZIP Co de Phone Number [facility] Unless otherwise noted, all lab tests performed by: Division of Pathology and Laboratory Medicine [address] [place] [id number] * LDH (07/09/2023 4:04 PM CDT) Only the most recent of2 resultswithin the time period is included. Pathologist [facility] LDH 193 135 - 225 U/L 07/09/2023 5:02 PM CDT [facility] Blood Peripheral blood specimen / Unknown Venipuncture / Unknown 07/09/2023 4:04 PM CDT 07/09/2023 4:17 PM CDT Narrative [facility] - 07/09/2023 5:02 PM CDT Results greater than 1651 U/L may not be reliable due to matrix effect with extended dilution as it exceeds the environmental services technician's recommended limit. Caution should be exercised when interpreting such values and done in conjunction with clinical context. Sandie NUÑEZ LAB BLOOD ORDERABLES [facility] Unless otherwise noted, all lab tests performed by: Division of Pathology and Laboratory Medicine [address] [place] [address] [id number] * IgA (07/09/2023 4:04 PM CDT) Pathologist [facility] IgA 341.0 85.0 - 499.0 mg/dL 07/11/2023 10:45 AM CDT [facility] Blood Peripheral blood specimen / Unknown Venipuncture / Unknown 07/09/2023 4:04 PM CDT 07/09/2023 4:17 PM CDT Sandie NUÑEZ LAB BLOOD ORDERABLES [facility] Unless otherwise noted, all lab tests performed by: Division of Pathology and Laboratory Medicine [address] [place] [id number] * IgM (07/09/2023 4:04 PM CDT) Pathologist [facility] IgM 59.0 35.0 - 242.0 mg/dL 07/11/2023 10:45 AM CDT [facility] Blood Peripheral blood specimen / Unknown Venipuncture / Unknown 07/09/2023 4:04 PM CDT 07/09/2023 4:17 PM CDT Sandie NUÑEZ LAB BLOOD ORDERABLES [facility] Unless otherwise noted, all lab tests performed by: Division of Pathology and Laboratory Medicine [address] [place] [address] [id number] * IgG (07/09/2023 4:04 PM CDT) Pathologist [facility] IgG 1,586.0 610.0 - 1,616.0 mg/dL 07/11/2023 10:45 AM CDT [facility] Blood Peripheral blood specimen / Unknown Venipuncture / Unknown 07/09/2023 4:04 PM CDT 07/09/2023 4:17 PM CDT Sandie NUÑEZ LAB BLOOD ORDERABLES Performing Organization Address City/[facility]/ZIP Co de Phone Number [facility] Unless otherwise noted, all lab tests performed by: Division of Pathology and Laboratory Medicine [address] [place] [address] [id number] * Creatinine (07/09/2023 4:04 PM CDT) Only the most recent of2 resultswithin the time period is included. Pathologist [facility] Creatinine 0.81 0.67 - 1.17 mg/dL 07/09/2023 5:20 PM CDT [facility] eGFR 98 >=60 mL/min/1.7 3 sq. m 07/09/2023 5:20 PM CDT [facility] Comment: The eGFRcr is calculated with the 2020 CKD-EPI creatinine equation using creatinine, patient's age, and sex for adults 18 years of age and older. Other factors, especially muscle mass, may affect accuracy and need to be considered. According to the Kidney Disease: Improving Global Outcomes (KDIGO) CKD Work Group 2012 Clinical Practice Guideline, chronic kidney disease (CKD) is defined as the abnormalities of kidney structure or function, present for more than 3 months, with implications for health. CKD should be classified by cause, GFR category, and albuminuria category. KDIGO guidelines provide the following GFR categories. Stage / Description / GFR mL/min/1.73 m2: G1* / Normal or high / >= 90 G2* / Mildly decreased / 60-89 G3a / Mildly to moderately decreased / 45-59 G3b / Moderately to severely decreased / 30-44 G4 / Severely decreased / 15-29 G5 / Kidney failure / <15 *In the absence of evidence of kidney damage, neither G1 nor G2 fulfill criteria for CKD. Blood Peripheral blood specimen / Unknown Venipuncture / Unknown 07/09/2023 4:04 PM CDT 07/09/2023 4:17 PM CDT Sandie NUÑEZ LAB BLOOD ORDERABLES [facility] Unless otherwise noted, all lab tests performed by: Division of Pathology and Laboratory Medicine [address] [place] [address] [id number] * Calcium Level (07/09/2023 4:04 PM CDT) Only the most recent of2 resultswithin the time period is included. Calcium Level Total 9.0 8.2 - 10.2 mg/dL 07/09/2023 5:02 PM CDT [facility] Blood Peripheral blood specimen / Unknown Venipuncture / Unknown 07/09/2023 4:04 PM CDT 07/09/2023 4:17 PM CDT Sandie NUÑEZ LAB BLOOD ORDERABLES [facility] Unless otherwise noted, all lab tests performed by: Division of Pathology and Laboratory Medicine [address] [place] [address] [id number] * Beta 2 Microglobulin (07/09/2023 4:04 PM CDT) Beta 2 Microglobulin 2.20 0.80 - 2.30 mg/L 07/11/2023 10:45 AM CDT [facility] Blood Peripheral blood specimen / Unknown Venipuncture / Unknown 07/09/2023 4:04 PM CDT 07/09/2023 4:17 PM CDT Narrative [facility] - 07/11/2023 10:45 AM CDT This test is measured by turbidimetric methodology on The [employer] Optilite analyzer. Results obtained in different methods are not interchangeable. Sandie NUÑEZ LAB BLOOD ORDERABLES Performing Organization Address City/[facility]/ZIP Co de Phone Number [facility] Unless otherwise noted, all lab tests performed by: Division of Pathology and Laboratory Medicine [address] [place] [id number] * Albumin Level (07/09/2023 4:04 PM CDT) Albumin Level 4.6 3.5 - 5.2 gm/dL 07/09/2023 5:20 PM CDT [facility] Blood Peripheral blood specimen / Unknown Venipuncture / Unknown 07/09/2023 4:04 PM CDT 07/09/2023 4:17 PM CDT Sandie NUÑEZ LAB BLOOD ORDERABLES Performing Organization Address [facility] Co de Phone Number [facility] Unless otherwise noted, all lab tests performed by: Division of Pathology and Laboratory Medicine [address] [place] [address] [phone] * (ABNORMAL) Electrolyte Panel (07/09/2023 4:04 PM CDT) Only the most recent of2 resultswithin the time period is included. Sodium Level 141 136 - 145 mmol/L 07/09/2023 5:20 PM CDT [facility] Potassium Level 4.0 3.4 - 4.5 mmol/L 07/09/2023 5:20 PM CDT [facility] Chloride 104 98 - 107 mmol/L 07/09/2023 5:20 PM CDT [facility] CO2 32(H) 22 - 29 mmol/L 07/09/2023 5:20 PM CDT [facility] Anion Gap 5 4 - 14 mmol/L 07/09/2023 5:20 PM CDT [facility] Blood Peripheral blood specimen / Unknown Venipuncture / Unknown 07/09/2023 4:04 PM CDT 07/09/2023 4:17 PM CDT Sandie K Elaina NUÑEZ LAB BLOOD ORDERABLES [facility] Unless otherwise noted, all lab tests performed by: Division of Pathology and Laboratory Medicine [address] [place] [address] * Echocardiogram 2D Complete (07/09/2023 2:04 PM CDT) EF 57 ISCV 07/09/2023 1:32 PM CDT Narrative [facility] - 07/09/2023 4:43 PM CDT Echocardiographic Report Interpretation Summary A complete two-dimensional transthoracic echocardiogram was performed (2D, M- mode, Spectral and color Doppler). There is no comparison study available. Normal left ventricular size and systolic function. LV ejection fraction calculated using the bi-plane method of disks is 57 %. The right ventricle is normal in size and function. Unable to estimate RVSP due to lack of TR visualization. There is no pericardial effusion. Left Ventricle: Normal left ventricular size and systolic function. There is normal left ventricular wall thickness. LV ejection fraction calculated using the bi-plane method of disks is 57 %. I WMSI = 1.00 % Normal = 100 Borderline global longitudinal peak systolic value X - Cannot 1 - Normal 2 - 3 - Akinetic 4 - Dyskinetic Interpret Hypokinetic 5 - Aneurysmal 3D imaginD volumes were not performed in this study. Cardiac Mechanics/Speckle Tracking Imaging: Borderline global longitudinal peak systolic value. Strain Imaging was performed; GLPS avg = -17.3%. Diastology: LV relaxation appears normal. Right Ventricle: The right ventricle is normal in size and function. Normal RV systolic function using TAPSE criteria. Atria: The left atrial size is normal. Right atrial size is normal. Mitral Valve: Mild thickening changes are noted. There is mild mitral regurgitation. Tricuspid Valve: The tricuspid valve is not well visualized, but is grossly normal. Unable to estimate RVSP due to lack of TR visualization. Aortic Valve: The aortic valve is trileaflet. Mild aortic valve thickening. Pulmonic Valve: The pulmonic valve is not well visualized. Great Vessels: The aortic root is normal size. The inferior vena cava demonstrates normal size and normal respiratory variation. Pericardium/Pleural: There is no pericardial effusion. An echo lucent space is noted consistent with prominent pericardial fat pad. Preliminary Reviewer Preliminary Interpretation: Kasie Welch MD. MMode/2D Measurements IVSd: 1.0 cm LVIDd: 5.0 cm LVIDs: 3.7 cm LVPWd: 1.0 cm FS: 26.7 % Ao root diam: 3.5 cm Ao root area: 9.5 cm2 LA dimension: 3.7 cm LVOT diam: 2.1 cm EDV(MOD-A4C): 111.7 ml ESV(MOD-A4C): 46.1 ml LVOT area: 3.6 cm2 EF(MOD-A4C): 58.7 % EDV(MOD-A2C): 98.0 ml ESV(MOD-A2C): 43.1 ml EDV(MOD-bp): 104.5 ml EF(MOD-A2C): 56.0 % ESV(MOD-bp): 45.3 ml EF(MOD-bp): 56.7 % LAV(MOD-A2C): 41.1 ml EDV (MOD-bp) Index: 47.8 ml/m2 LAV(MOD-A4C): 38.9 ml LAV(MOD-bp): 42.0 ml LAV(MOD-bp) Indexed: 19.2 ml/m2 ESV (MOD-bp) Index: 20.7 ml/m2 RWT: 0.41 cm TAPSE (>1.6): 2.3 cm Doppler Measurements MV E max vidal: 87.9 cm/sec MV V2 max: 77.6 cm/sec MV A max vidal: 68.2 cm/sec MV max P.4 mmHg MV E/A: 1.3 MV V2 mean: 50.6 cm/sec MV mean P.1 mmHg MV V2 VTI: 18.6 cm MVA(VTI): 3.5 cm2 Ao V2 max: 133.9 cm/sec LV V1 max P.3 mmHg Ao max P.2 mmHg LV V1 mean P.6 mmHg Ao V2 mean: 80.8 cm/sec LV V1 max: 91.3 cm/sec Ao mean P.1 mmHg LV V1 mean: 58.6 cm/sec Ao V2 VTI: 25.3 cm LV V1 VTI: 17.9 cm CUBA(I,D): 2.6 cm2 CUBA(V,D): 2.5 cm2 SV(LVOT): 64.7 ml Med Peak E' Vidal: 8.8 cm/sec Lat Peak E' Vidal: 12.6 cm/sec RAP systole: 3.0 mmHg RV S Vel_phl: 15.0 cm/sec CUBA Index (I,D): 1.2 CUBA Index (V,D): 1.1 Dimensionless Index: 0.68 E/e' (avg): 8.2 E/e' (lat): 7.0 E/e' (sept): 9.9 Procedure Note Donald Bustamante MD - 07/09/2023 Echocardiographic Report Interpretation Summary A complete two-dimensional transthoracic echocardiogram was performed (2D,M- mode, Spectral and color Doppler). There is no comparison studyavailable. Normal left ventricular size and systolic function. LV ejection fraction calculated using the bi-plane method of disks is 57%. The right ventricle is normal in size and function. Unable to estimate RVSP due to lack of TR visualization. There is no pericardial effusion. Left Ventricle: Normal left ventricular size and systolic function. There is normal leftventricular wall thickness. LV ejection fraction calculated using thebi-plane method of disks is 57 %. I WMSI = 1.00 % Normal = 100 Borderline global longitudinal peak systolic value X - Cannot 1 - Normal 2 - 3 - Akinetic 4 - Dyskinetic Interpret Hypokinetic 5 - Aneurysmal 3D imaginD volumes were not performed in this study. Cardiac Mechanics/Speckle Tracking Imaging: Borderline global longitudinal peak systolic value. Strain Imaging wasperformed; GLPS avg = -17.3%. Diastology: LV relaxation appears normal. Right Ventricle: The right ventricle is normal in size and function. Normal RV systolicfunction using TAPSE criteria. Atria: The left atrial size is normal. Right atrial size is normal. Mitral Valve: Mild thickening changes are noted. There is mild mitral regurgitation. Tricuspid Valve: The tricuspid valve is not well visualized, but is grossly normal. Unableto estimate RVSP due to lack of TR visualization. Aortic Valve: The aortic valve is trileaflet. Mild aortic valve thickening. Pulmonic Valve: The pulmonic valve is not well visualized. Great Vessels: The aortic root is normal size. The inferior vena cava demonstrates normalsize and normal respiratory variation. Pericardium/Pleural: There is no pericardial effusion. An echo lucent space is noted consistentwith prominent pericardial fat pad. Preliminary Reviewer Preliminary Interpretation: Kasie Welch MD. MMode/2D Measurements IVSd: 1.0 cmLVIDd: 5.0 cm LVIDs: 3.7 cm LVPWd: 1.0 cm FS: 26.7 %Ao root diam: 3.5 cm Ao root area: 9.5 cm2 LA dimension: 3.7 cm LVOT diam: 2.1 cmEDV(MOD-A4C): 111.7 ml ESV(MOD-A4C): 46.1 ml LVOT area: 3.6 cm2EF(MOD-A4C): 58.7 % EDV(MOD-A2C): 98.0 ml ESV(MOD-A2C): 43.1 mlEDV(MOD-bp): 104.5 ml EF(MOD-A2C): 56.0 %ESV(MOD-bp): 45.3 ml EF(MOD-bp): 56.7 % LAV(MOD-A2C): 41.1 mlEDV (MOD-bp) Index: 47.8 ml/m2 LAV(MOD-A4C): 38.9 ml LAV(MOD-bp): 42.0 ml LAV(MOD-bp) Indexed: 19.2 ml/m2 ESV (MOD-bp) Index: 20.7 ml/m2RWT: 0.41 cm TAPSE (>1.6): 2.3 cm Doppler Measurements MV E max vidal: 87.9 cm/secMV V2 max: 77.6 cm/sec MV A max vidal: 68.2 cm/secMV max P.4 mmHg MV E/A: 1.3MV V2 mean: 50.6 cm/sec MV mean P.1 mmHg MV V2 VTI: 18.6 cm MVA(VTI): 3.5 cm2 Ao V2 max: 133.9 cm/secLV V1 max P.3 mmHg Ao max P.2 mmHgLV V1 mean P.6 mmHg Ao V2 mean: 80.8 cm/secLV V1 max: 91.3 cm/sec Ao mean P.1 mmHgLV V1 mean: 58.6 cm/sec Ao V2 VTI: 25.3 cmLV V1 VTI: 17.9 cm CUBA(I,D): 2.6 cm2 CUBA(V,D): 2.5 cm2 SV(LVOT): 64.7 mlMed Peak E' Vidal: 8.8 cm/sec Lat Peak E' Vidal: 12.6 cm/secRAP systole: 3.0 mmHg RV S Vel_phl: 15.0 cm/secAVA Index (I,D): 1.2 CUBA Index (V,D): 1.1Dimensionless Index: 0.68 E/e' (avg): 8.2E/e' (lat): 7.0 E/e' (sept): 9.9 Sandie CARO ECHO ORDERABLES ISCV * IR CT GUIDED BIOPSY ABDOMINAL NON-ORGAN 60 (06/18/2023 3:11 PM CDT) Anatomical Region Laterality Modality Abdomen/Pelvis Computed Tomogra phy Narrative 06/18/2023 3:34 PM CDT Table formatting from the original result was not included. Date of Procedure: 06/18/23 Attending Physician: Neela Hinds MD Developer Programmer Analyst: None Pre Procedure Diagnosis: Lymphadenopathy Post Procedure Diagnosis: Unchanged Indication: New mass / nodule for tissue diagnosis Protocol Number: N/A Title of Procedure: Percutaneous Computed Tomography-Guided Biopsy Operative Findings: Percutaneous image-guided biopsy of 4cm midline abdominal mass. Consent: The procedure, risks, indications and alternatives were explained. All questions were answered and informed consent was obtained. I have reviewed the history and physical dictated by the JM / fellow. Sedation/Anesthesia: Moderate sedation for pain control and anxiety was administered by a dedicated nurse under my supervision. There was continuous monitoring of oxygen saturation, heart rate and intermittent monitoring of blood pressure during the procedure. Medication given was midazolam and fentanyl. I was present for the administration of the medications indicated above. Procedure Events Event Event Time Sedation Start 06/18/2023 2:45 PM Sedation End 06/18/2023 3:12 PM Procedure in Detail: A time out was performed prior to the start of the procedure and the correct patient, procedure, presence of consent, site, and side were confirmed with all members of the team. With the patient in the prone position, the skin overlying the area of interest was prepped and draped in the usual sterile fashion. Lidocaine 1% was used for local anesthesia. Using a posterior approach under Computed Tomography image-guidance, a 17 gauge needle was advanced down to the midline abdominal mass. An image was obtained and placed into the medical record. Samples were obtained for evaluation. Sampling: Core Biopsy: An 18 gauge needle used to obtain samples for surgical pathology evaluation. Total number of samples: 3 Specimens Disposition: Diagnostic Biopsy: The biopsy samples were submitted to pathology. Additional Comments: The mass surrounds large mesenteric arteries and veins which precluded aggressive sampling. Estimated Blood Loss: Minimal Immediate Complications: None Disposition: PACU Plan: No follow-up with Interventional Radiology required. Lizzy Brady APRN [facility] [place] IR ORDERABLES * Pathology Biopsy Interpretation (06/18/2023 2:52 PM CDT) Submitted Clinical History Lymphadenopathy [R59.1] 06/28/2023 3:06 PM CDT [facility] Diagnosis Abdominal mass, midline, core biopsy: FOLLICULAR LYMPHOMA (GRADE 2), FOCAL AREAS WITH INCREASED LARGE CELLS 06/28/2023 3:06 PM CDT [facility] Comment Histologic sections show fragments of tissue involved by a malignant neoplasm in predominantly follicular growth pattern. The neoplasm is composed of centrocytes admixed with fewer centroblasts (<15/high power field), focally with increased large cells. No sheets of large atypical lymphoid cells or areas of overt necrosis are identified. By immunohistochemist ry, the neoplastic cells are positive for CD20, PAX5, CD10, BCL6 and BCL2. They are negative for CD3, CD5, cyclin D1, SOX11, CD43, MNDA and pancytokeratin. A few follicular dendritic cell meshworks are highlights by CD21 and CD23. The proliferation index measured by Ki-67 is slightly variable, approximately 20-30% overall in the tumor cells. In situ hybridization for Dick-Morfin virus-encoded RNA (SOILA) is positive in very rare cells. No specimen was submitted for flow cytometric analysis. According to the clinical notes, the patient has a history of hepatitis C and presented with an amorphous 8.6 cm soft tissue masslike lesion along the root of mesentery and central mesenteric vessels and moderate splenomegaly by imaging. Dr. Sage Pedro also reviewed the case and agrees with the diagnosis and interpretation. 06/28/2023 3:06 PM CDT [facility] Gross Description A: Abdomen, midline, biopsy - abdominal/mesenter ic: Four mack-yellow core biopsies ranging from 0.3 to 1.5 cm in length with a diameter of less than 0.1 cm, entirely submitted in A1. GM 06/28/2023 3:06 PM CDT [facility] It Architect(s) Dr. Sage Pedro 06/28/2023 3:06 PM CDT [facility] Biomarker Block(s) A1 06/28/2023 3:06 PM CDT [facility] Disclaimer "Some tests reported here may have been developed and performance characteristics determined by [facility] Pathology and Laboratory Medicine. These tests have not been specifically cleared or approved by the U.S. Food and Drug Administration. If applicable, controls were reviewed and showed appropriate reactivity." 06/28/2023 3:06 PM CDT [facility] Tissue (Abdomen, Midline) 06/18/2023 2:52 PM CDT 06/21/2023 9:47 AM CDT Lizzy Brady APRN LAB PATHOLOGY [facility] [address] [place] [id number], * (ABNORMAL) [facility] CP PLATELET COUNT (06/18/2023 12:34 PM CDT) Platelet 58(L) 160 - 397 K/uL 06/18/2023 1:24 PM CDT [facility] Mean Platelet Volume 11.5 9.1 - 12.6 fL 06/18/2023 1:24 PM T [facility] Blood Peripheral blood specimen / Unknown Venipuncture / Unknown 06/18/2023 12:34 PM CDT 06/18/2023 12:37 PM CDT Zoila Rogers PA-C LAB BLOOD ORDERABL ES [facility] [address] [place] [address] * (ABNORMAL) Basic Metabolic Panel- Total Calcium (06/18/2023 12:34 PM CDT) eGFR 89 >=60 mL/min/1.7 3 sq. m 06/18/2023 1:09 PM CDT [facility] Comment: The eGFRcr is calculated with the 2020 CKD-EPI creatinine equation using creatinine, patient's age, and sex for adults 18 years of age and older. Other factors, especially muscle mass, may affect accuracy and need to be considered. According to the Kidney Disease: Improving Global Outcomes (KDIGO) CKD Work Group 2012 Clinical Practice Guideline, chronic kidney disease (CKD) is defined as the abnormalities of kidney structure or function, present for more than 3 months, with implications for health. CKD should be classified by cause, GFR category, and albuminuria category. KDIGO guidelines provide the following GFR categories. Stage / Description / GFR mL/min/1.73 m2: G1* / Normal or high / >= 90 G2* / Mildly decreased / 60-89 G3a / Mildly to moderately decreased / 45-59 G3b / Moderately to severely decreased / 30-44 G4 / Severely decreased / 15-29 G5 / Kidney failure / <15 *In the absence of evidence of kidney damage, neither G1 nor G2 fulfill criteria for CKD. Calcium Level Total 9.2 8.2 - 10.2 mg/dL 06/18/2023 1:09 PM CDT [facility] Sodium Level 143 136 - 145 mmol/L 06/18/2023 1:09 PM CDT [facility] Potassium Level 4.3 3.4 - 4.5 mmol/L 06/18/2023 1:09 PM CDT [facility] Chloride 105 98 - 107 mmol/L 06/18/2023 1:09 PM CDT [facility] CO2 31(H) 22 - 29 mmol/L 06/18/2023 1:09 PM CDT [facility] Anion Gap 7 4 - 14 mmol/L 06/18/2023 1:09 PM [facility] Creatinine 0.95 0.67 - 1.17 mg/dL 06/18/2023 1:09 PM [facility] BUN 12 6 - 23 mg/dL 06/18/2023 1:09 PM T [facility] Glucose Level 102(H) 70 - 99 mg/dL 06/18/2023 1:09 PM [facility] Comment: Effective 10/09/15, the glucose reference intervals have been updated based on [place] [employer] guidelines (Standards of Medical Care in Diabetes 2016. Diabetes Care 2016; 39: S13-S22). Fasting blood glucose: Normal: 70-99 mg/dL Impaired fasting glucose (increased risk for diabetes or pre-diabetes): 100-125 mg/dL Diabetes mellitus: >/=126 mg/dL Random blood glucose: Normal: 70-199 mg/dL Note: Random glucose >100 mg/dL is associated with increased risk for diabetes. Blood Peripheral blood specimen / Unknown Venipuncture / Unknown 06/18/2023 12:34 PM CDT 06/18/2023 12:37 PM CDT Lynette Bradford PA-C LAB BLOOD [place]ITOA JANA [facility] [address] [facility] [place] [address] * Hepatitis A Antibody IgG (05/07/2023 3:20 PM COMPUTER SOFTWARE ENGINEER) Hepatitis A IgG Negative 11:36 AM COMPUTER SOFTWARE ENGINEER [facility] Comment: Result indicates no past exposure or immunity to hepatitis A infection. REFERENCE VALUE Unvaccinated: Negative Vaccinated: Positive Test Performed by: [facility] - [address] [address] Insert Operator: Jb Yap M.D. Ph.D.; CLIA# [id number] Blood Peripheral blood specimen / Unknown Venipuncture / Unknown 05/07/2023 3:20 PM COMPUTER SOFTWARE ENGINEER 05/07/2023 3:23 PM COMPUTER SOFTWARE ENGINEER Huong Foster APRN LAB BLOOD ORDERABL ES Performing Organization Address [facility]/ZIP Co de Phone Number [facility] * Arley Misc Test (05/07/2023 3:20 PM COMPUTER SOFTWARE ENGINEER) [facility] Pérez Mis Test Result See Footnote 05/13/2023 2:15 PM COMPUTER SOFTWARE ENGINEER [facility] Comment: Test Result Flag Unit RefValue Hepatitis D Antigen SEE COMMENTS Hepatitis D Antigen Result Name Result Units Hepatitis D Ag Negative Reference Range: Negative Interpretation: Negative: Antigen not detected Equivocal: Antigen may or may not be present Positive: Antigen detected Repeat testing is recommended for equivocal results with a sample collected 7-14 days after initial sample collection. The performance characteristics of the listed assay was validated by [facility]. The [place] FDA has not approved or cleared this test. The results of this assay can be used for clinical diagnosis without FDA approval. [facility] is a CLIA certified, CAP accredited laboratory for performing high complexity assays such as this one. Test Performed by: [facility] [place] [address] Other (Other) 05/07/2023 3:2 0 PM COMPUTER SOFTWARE ENGINEER 05/07/2023 3:53 PM COMPUTER SOFTWARE ENGINEER Huong Foster APRN LAB BLOOD ORDERABL ES [facility] * Hepatitis C Virus RNA Detect/Quant (05/07/2023 3:20 PM COMPUTER SOFTWARE ENGINEER) [facility] HepC RNA PCR [facility] Undetected Undetected IU/mL 05/09/2023 11:36 AM COMPUTER SOFTWARE ENGINEER [facility] Comment: Result in log IU/mL is Undetected. ADDITIONAL INFORMATION The quantification range of this assay is 15 to 100,000,000 IU/mL (1.18 log to 8.00 log IU/mL). Testing was performed using the nikita HCV test ([employer] Test Performed by: [facility] [place] [address] Insert Operator: Jb Yap M.D. Ph.D.; CLIA# [id number] Blood Peripheral blood specimen / Unknown Venipuncture / Unknown 05/07/2023 3:20 PM COMPUTER SOFTWARE ENGINEER 05/07/2023 3:23 PM COMPUTER SOFTWARE ENGINEER Huong Foster APRN LAB BLOOD ORDERABL ES [facility] * HBV DNA Quant (05/07/2023 3:20 PM COMPUTER SOFTWARE ENGINEER) [facility] HBV DNA [facility] Undetected Undetected IU/mL 05/10/2023 2:21 PM COMPUTER SOFTWARE ENGINEER [facility] Comment: Result in log IU/mL is Undetected. ADDITIONAL INFORMATION The quantification range of this assay is 10 to 1,000,000,000 IU/mL (1.00 log to 9.00 log IU/mL). Testing was performed using the nikita HBV test ([employer] Test Performed by: [facility] - [address] [address] Insert Operator: Jb Yap M.D. Ph.D.; CLIA# [id number] Blood Peripheral blood specimen / Unknown Venipuncture / Unknown 05/07/2023 3:20 PM COMPUTER SOFTWARE ENGINEER 05/07/2023 3:23 PM COMPUTER SOFTWARE ENGINEER Huong Foster APRN LAB BLOOD ORDERABL ES [facility] * (ABNORMAL) Hepatic Function Panel (05/07/2023 3:20 PM COMPUTER SOFTWARE ENGINEER) Bilirubin Total 2.1(H) <=1.2 mg/dL 05/07/2023 4:49 PM COMPUTER SOFTWARE ENGINEER [facility] Comment:Indocyanine Green (I CG) may cause falsely elevated bilirubin results. Total and direct bilirubin must not be measured from samples containing indocyanine green. False elevation of total bilirubin can be seen in patients with IgG concentrations above 28 g/L. Bilirubin Direct 0.3 <=0.3 mg/dL 05/07/2023 4:49 PM COMPUTER SOFTWARE ENGINEER [facility] Comment:Indocyanine Green (I CG) may cause falsely elevated bilirubin results. Total and direct bilirubin must not be measured from samples containing indocyanine green. Bilirubin Indirect 1.8(H) 0.0 - 0.9 mg/dL 05/07/2023 4:49 PM COMPUTER SOFTWARE ENGINEER [facility] Tot Protein 7.5 6.4 - 8.3 gm/dL 05/07/2023 4:49 PM COMPUTER SOFTWARE ENGINEER [facility] Alkaline Phosphatase 81 40 - 129 U/L 05/07/2023 4:49 PM COMPUTER SOFTWARE ENGINEER [facility] Albumin Level 4.5 3.5 - 5.2 gm/dL 05/07/2023 4:49 PM COMPUTER SOFTWARE ENGINEER [facility] AST 24 <=40 U/L 05/07/2023 4:49 PM COMPUTER SOFTWARE ENGINEER [facility] ALT 22 <=41 U/L 05/07/2023 4:49 PM COMPUTER SOFTWARE ENGINEER [facility] Blood Peripheral blood specimen / Unknown Venipuncture / Unknown 05/07/2023 3:20 PM COMPUTER SOFTWARE ENGINEER 05/07/2023 3:23 PM COMPUTER SOFTWARE ENGINEER Huong Foster APRN LAB BLOOD ORDERABL ES [facility] Unless otherwise noted, all lab tests performed by: Division of Pathology and Laboratory Medicine [address] [place] [id number] * Hepatitis E IgM Ab (05/07/2023 3:20 PM COMPUTER SOFTWARE ENGINEER) Pathologist [facility] HEV IgM Ab Scrn-Arley Negative Negative 05/11/2023 1:24 PM COMPUTER SOFTWARE ENGINEER [facility] Comment: If clinical suspicion persists, submit new specimen for retesting in 1 to 2 weeks. ADDITIONAL INFORMATION This test was developed and its performance characteristics determined by [facility] in a manner consistent with CLIA requirements. This test has not been cleared or approved by the U.S. Food and Drug Administration. Test Performed by: [facility] [place] [address] Insert Operator: Jb Yap M.D. Ph.D.; CLIA# [id number] Blood Peripheral blood specimen / Unknown Venipuncture / Unknown 05/07/2023 3:20 PM COMPUTER SOFTWARE ENGINEER 05/07/2023 3:23 PM COMPUTER SOFTWARE ENGINEER Huong Foster APRN LAB BLOOD ORDERABL ES [facility] * Hepatitis E IgG Ab (05/07/2023 3:20 PM COMPUTER SOFTWARE ENGINEER) [facility] HEV IgG Ab-Arley Negative Negative 4 2:49 PM COMPUTER SOFTWARE ENGINEER [facility] Comment: ADDITIONAL INFORMATION This test was developed and its performance characteristics determined by [facility] in a manner consistent with CLIA requirements. This test has not been cleared or approved by the U.S. Food and Drug Administration. Test Performed by: [facility] - [address] [address] Insert Operator: Jb Yap M.D. Ph.D.; CLIA# [id number] Blood Peripheral blood specimen / Unknown Venipuncture / Unknown 05/07/2023 3:20 PM COMPUTER SOFTWARE ENGINEER 05/07/2023 3:23 PM COMPUTER SOFTWARE ENGINEER Huong Foster APRN LAB BLOOD ORDERABL ES Performing Organization Address [facility]/ZIP Co de Phone Number [facility] * Chromogranin A (05/07/2023 3:20 PM COMPUTER SOFTWARE ENGINEER) Pathologist [facility] <93 ng/mL 05/08 12:40 PM COMPUTER SOFTWARE ENGINEER [facility] Comment: ADDITIONAL INFORMATION This test was developed and its performance characteristics determined by [facility] in a manner consistent with CLIA requirements. This test has not been cleared or approved by the U.S. Food and Drug Administration. In some immunoassays, the presence of unusually high concentrations of analyte may result in a high-dose "hook" effect. This may result in a lower or even normal measured analyte concentration. If the reported result is inconsistent with the clinical presentation, the laboratory should be alerted for troubleshooting. For diagnostic purposes, these immunoassay results should always be assessed in conjunction with the patients medical history, clinical examination and other findings. The testing method is a homogeneous time-resolved immunofluorescent assay manufactured by [employer] and performed on the [employer] Kryptor Compact Plus. Values obtained with different assay methods or kits may be different and cannot be used interchangeably. Test results cannot be interpreted as absolute evidence for the presence or absence of malignant disease. Test Performed by: [facility] [place] [address] Insert Operator: Jb Yap M.D. Ph.D.; CLIA# [id number] Blood Peripheral blood specimen / Unknown Venipuncture / Unknown 05/07/2023 3:20 PM COMPUTER SOFTWARE ENGINEER 05/07/2023 3:23 PM COMPUTER SOFTWARE ENGINEER Huong Foster APRN LAB BLOOD ORDERABL ES Performing Organization Address City/[facility]/ZIP Co de Phone Number [facility] * AFP (05/07/2023 3:20 PM COMPUTER SOFTWARE ENGINEER) Alpha Fetoprotein (AFP) Tumor Marker 4.2 <=8.3 ng/mL 05/07/2023 4:28 PM COMPUTER SOFTWARE ENGINEER [facility] Blood Peripheral blood specimen / Unknown Venipuncture / Unknown 05/07/2023 3:20 PM COMPUTER SOFTWARE ENGINEER 05/07/2023 3:23 PM COMPUTER SOFTWARE ENGINEER Narrative [facility] - 05/07/2023 4:28 PM COMPUTER SOFTWARE ENGINEER Results greater than 45,875.00 ng/mL may not be reliable due to matrix effect with extended dilution as it exceeds the environmental services technician's recommended limit. Caution should be exercised when interpreting such values and done in conjunction with clinical context. This test is measured by electrochemiluminescence immunoassay on [employer] immunoassay analyzers. Results obtained in different methods are not interchangeable. Huong Foster APRN LAB BLOOD ORDERABL ES Performing Organization Address City/[facility] Co de Phone Number [facility] Unless otherwise noted, all lab tests performed by: Division of Pathology and Laboratory Medicine [address] [place] [id number] * Hep A IgM Ab (05/07/2023 3:20 PM COMPUTER SOFTWARE ENGINEER) Pathologist [facility] Hep A IgM-Arley Negative Negative 05/08/2023 11:36 AM COMPUTER SOFTWARE ENGINEER [facility] Comment: Result does not exclude the possibility of exposure to hepatitis A virus. Antibody level during early infection stage may be below the limit of detection of the assay. Test Performed by: [place] [address] Insert Operator: Jb Yap M.D. Ph.D.; CLIA# [id number] Blood Peripheral blood specimen / Unknown Venipuncture / Unknown 05/07/2023 3:20 PM COMPUTER SOFTWARE ENGINEER 05/07/2023 3:23 PM COMPUTER SOFTWARE ENGINEER Huong Foster APRN LAB BLOOD ORDERABL ES [facility] * CA 19-9 (05/07/2023 3:20 PM COMPUTER SOFTWARE ENGINEER) CA 19-9 10.7 <=35.0 U/mL 05/07/2023 4:28 PM COMPUTER SOFTWARE ENGINEER [facility] Blood Peripheral blood specimen / Unknown Venipuncture / Unknown 05/07/2023 3:20 PM COMPUTER SOFTWARE ENGINEER 05/07/2023 3:23 PM COMPUTER SOFTWARE ENGINEER Narrative [facility] - 05/07/2023 4:28 PM COMPUTER SOFTWARE ENGINEER Results greater than 9500 U/mL may not be reliable due to matrix effect with extended dilution as it exceeds the environmental services technician's recommended limit. Caution should be exercised when interpreting such values and done in conjunction with clinical context. This test is measured by electrochemiluminescence immunoassay on [employer] immunoassay analyzers. Results obtained in different methods are not interchangeable. Huong Foster APRN LAB BLOOD ORDERABL ES Performing Organization Address City/[facility]/ZIP Co de Phone Number [facility] Unless otherwise noted, all lab tests performed by: Division of Pathology and Laboratory Medicine [address] [place] [id number] * Hepatitis D Ag (05/07/2023 3:20 PM COMPUTER SOFTWARE ENGINEER) Scan Result See Scanned Result 05/07/2023 3:54 PM COMPUTER SOFTWARE ENGINEER [facility] Blood Peripheral blood specimen / Unknown Venipuncture / Unknown 05/07/2023 3:20 PM COMPUTER SOFTWARE ENGINEER 05/07/2023 3:23 PM COMPUTER SOFTWARE ENGINEER Narrative [facility] - 05/07/2023 3:54 PM COMPUTER SOFTWARE ENGINEER Refer to [phone] Huong Foster BIOMEDICAL MANAGER LAB BLOOD ORDERABL ES Performing Organization Address City/[facility]/ZIP Co de Phone Number [facility] Unless otherwise noted, all lab tests performed by: Division of Pathology and Laboratory Medicine [address] [place] [id number] * Serotonin Level (05/07/2023 3:20 PM COMPUTER SOFTWARE ENGINEER) Serotonin Bld-Pérez <30 <=330 ng/mL 05/13/2023 3:03 PM COMPUTER SOFTWARE ENGINEER [facility] Comment: ADDITIONAL INFORMATION This test was developed and its performance characteristics determined by [facility] in a manner consistent with CLIA requirements. This test has not been cleared or approved by the U.S. Food and Drug Administration. Test Performed by: [facility] - [facility] [address] [place] [address] Insert Operator: Jb Yap M.D. Ph.D.; CLIA# [id number] Blood Peripheral blood specimen / Unknown Venipuncture / Unknown 05/07/2023 3:20 PM COMPUTER SOFTWARE ENGINEER 05/07/2023 3:23 PM COMPUTER SOFTWARE ENGINEER Huong De Leongulshan WELCHN LAB BLOOD ORDERABL ES Performing Organization Address [facility]/ZIP Co de Phone Number [facility] * Prostate Specific Antigen (PSA) Screening (05/07/2023 3:20 PM COMPUTER SOFTWARE ENGINEER) Prostate Specific Antigen 0.4 0.0 - 4.0 ng/mL 05/07/2023 4:28 PM COMPUTER SOFTWARE ENGINEER [facility] PSA Indication Screening 05/07/2023 4:28 [address] COM[address]ER SOFTWARE [address] [facility] Blood Peripheral blood specimen / Unknown Venipuncture / Unknown 05/07/2023 3:20 PM COMPUTER SOFTWARE ENGINEER 05/07/2023 3:23 PM COMPUTER SOFTWARE ENGINEER Narrative [facility] - 05/07/2023 4:28 PM COMPUTER SOFTWARE ENGINEER "Reference range established based on adult population Results greater than 4519 ng/mL may not be reliable due to matrix effect with extended dilution as it exceeds the environmental services technician's recommended limit. Caution should be exercised when interpreting such values and done in conjunction with clinical context. Huong Foster BIOMEDICAL MANAGER LAB BLOOD ORDERABL ES [facility] Unless otherwise noted, all lab tests performed by: Division of Pathology and Laboratory Medicine [address] [place] [address] [id number] [facility] Unless otherwise noted, all lab tests performed by: Division of Pathology and Laboratory Medicine [address] [place] [id number] * CEA Ag (05/07/2023 3:20 PM COMPUTER SOFTWARE ENGINEER) Carcinoembryonic Antigen 1.5 <=3.8 ng/mL 05/07/2023 4:28 PM COMPUTER SOFTWARE ENGINEER [facility] Blood Peripheral blood specimen / Unknown Venipuncture / Unknown 05/07/2023 3:20 PM COMPUTER SOFTWARE ENGINEER 05/07/2023 3:23 PM COMPUTER SOFTWARE ENGINEER Narrative [facility] - 05/07/2023 4:28 PM COMPUTER SOFTWARE ENGINEER Reference Ranges (age 20-69 years): Non-smoker: 0.0 - 3.8 ng/mL Smoker: 0.0 - 5.5 ng/mL This test is measured by electrochemiluminescence immunoassay on [employer] immunoassay analyzers. Results obtained in different methods are not interchangeable. 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 Evidence of slight progression when compared to 02/25/2023. Small volume retroperitoneal nodes are indeterminate. Cirrhosis and portal hypertension. Small nodes in the hepatoduodenal ligament and gastrohepatic ligament are stable and most likely related to cirrhosis. Findings are stable when compared to February. ACTIONABLE ITEMS/RECOMMENDATIONS*: None. Narrative 05/07/2023 3:37 PM COMPUTER SOFTWARE ENGINEER FULL RESULT: Examination: CT CHEST ABDOMEN PELVIS W WO CONTRAST on 05/07/2023 2:26 PM. Clinical History: Abnormal finding on diagnostic imaging of other abdominal region including retroperitoneum Lymphadenopathy Indication: 8.6 x 5.5 x 7.9 cm soft tissue masslike density surrounding the root of mesentery and mesenteric vessel centrally. , Lymphadenopathy Comparison: None. Technique: CT CHEST ABDOMEN PELVIS W WO CONTRAST. CHEST FINDINGS: Lines and Tubes: None. Lungs and Pleura: There is no parenchymal disease. Lymph nodes: there is no supraclavicular or mediastinal adenopathy. There are small nodes. There are nonspecific. There is a small left internal mammary node, an, image 25 series 4. Cardiomediastinum: The heart is normal in size. No pericardial effusion. ABDOMEN AND PELVIS FINDINGS: Hepatobiliary/ Spleen: The contours of the liver are suspicious slightly nodular. There is no focal mass. The spleen is enlarged. It measures 18.5 cm in craniocaudal dimension not changed from 02/25/2023. 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 There is no evidence of ascites. The findings are consistent with cirrhosis and portal hypertension. The gallbladder has been removed. Gastrointestinal Tract/ Peritoneum: The gastrointestinal tract is within normal range. There is adenopathy in the wall of the small bowel mesentery forming a conglomerated mass infiltrating the proximal ileal and jejunal vessels. The AP diameter of the mass in the mid abdomen along the proximal ileal vessels 4.7 cm compared to 3.6 cm in February 25. Similarly there is progression in the jejunal mesentery. There are mildly enlarged nodes in the gastrohepatic ligament, hepatoduodenal ligament. The nodes are stable and most likely related to cirrhosis. Pancreas/Adrenal Glands /Kidneys/ Retroperitoneum: The pancreas adrenals kidneys are normal. There are mildly enlarged nodes in the retroperitoneum they are subcentimeter and not changed significantly. Bladder/Pelvic Organs: Prostate is not enlarged. There is no pelvic adenopathy. They have been repair of inguinal hernia as bilaterally Musculoskeletal: Degenerative changes. Procedure Note Margie Case MD - 05/07/2023 FULL RESULT: Examination: CT CHEST ABDOMEN PELVIS W WO CONTRAST on 05/07/2023 2:26 PM. Clinical History: Abnormal finding on diagnostic imaging of otherabdominal region including retroperitoneum Lymphadenopathy Indication: 8.6 x 5.5 x 7.9 cm soft tissue masslike density surroundingthe root of mesentery and mesenteric vessel centrally. , Lymphadenopathy Comparison: None. Technique: CT CHEST ABDOMEN PELVIS W WO CONTRAST. CHEST FINDINGS: Lines and Tubes: None. Lungs and Pleura: There is no parenchymal disease. Lymph nodes: there is no supraclavicular or mediastinal adenopathy. Thereare small nodes. There are nonspecific. There is a small left internalmammary node, an, image 25 series 4. Cardiomediastinum: The heart is normal in size. No pericardial effusion. ABDOMEN AND PELVIS FINDINGS: Hepatobiliary/ Spleen: The contours of the liver are suspicious slightlynodular. There is no focal mass. The spleen is enlarged. It measures 18.5cm in craniocaudal dimension not changed from 02/25/2023. 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 There is no evidenceof ascites. The findings are consistent with cirrhosis and portalhypertension. The gallbladder has been removed. Gastrointestinal Tract/ Peritoneum: The gastrointestinal tract is withinnormal range. There is adenopathy in the wall of the small bowel mesenteryforming a conglomerated mass infiltrating the proximal ileal and jejunalvessels. The AP diameter of the mass in the mid abdomen along the proximalileal vessels 4.7 cm compared to 3.6 cm in February 25. Similarly there isprogression in the jejunal mesentery. There are mildly enlarged nodes in the gastrohepatic ligament,hepatoduodenal ligament. The nodes are stable and most likely related tocirrhosis. Pancreas/Adrenal Glands /Kidneys/ Retroperitoneum: The pancreas adrenals kidneys are normal. There are mildly enlarged nodesin the retroperitoneum they are subcentimeter and not changedsignificantly. Bladder/Pelvic Organs: Prostate is not enlarged. There is no pelvicadenopathy. They have been repair of inguinal hernia as bilaterally Musculoskeletal: Degenerative changes. IMPRESSION: Alexandra mass at the root of the small bowel mesentery, most likely lymphoma.Evidence of slight progression when compared to 02/25/2023. Small volume retroperitoneal nodes are indeterminate. Cirrhosis and portal hypertension. Small nodes in the hepatoduodenalligament and gastrohepatic ligament are stable and most likely related tocirrhosis. Findings are stable when compared to February. ACTIONABLE ITEMS/RECOMMENDATIONS*: None. Lizzy Brady APRN IMG CT ORDERABLES * POC Creatinine (05/07/2023 1:56 PM COMPUTER SOFTWARE ENGINEER) POC Creatinine 0.8 0.6 - 1.3 mg/dL 05/07/2023 1:59 PM COMPUTER SOFTWARE ENGINEER [facility] Comment:Medications, especia lly hydroxyurea or supplements, such as ascorbate, can interfere with test results causing a falsely and significantly higher result than expected. If a problem is suspected with a patient's result, a sample should be sent to the laboratory for confirmatory testing. POC eGFR 99 >=60 mL/min/1.7 3 sq. m 05/07/2023 1:59 PM COMPUTER SOFTWARE ENGINEER [facility] [facility] Comment: The eGFRcr is calculated with the 2020 CKD-EPI creatinine equation using creatinine, patient's age, and sex for adults 18 years of age and older. Other factors, especially muscle mass, may affect accuracy and need to be considered. According to the Kidney Disease: Improving Global Outcomes (KDIGO) CKD Work Group 2012 Clinical Practice Guideline, chronic kidney disease (CKD) is defined as the abnormalities of kidney structure or function, present for more than 3 months, with implications for health. CKD should be classified by cause, GFR category, and albuminuria category. KDIGO guidelines provide the following GFR categories. Stage / Description / GFR mL/min/1.73 m2: G1* / Normal or high / >= 90 G2* / Mildly decreased / 60-89 G3a / Mildly to moderately decreased / 45-59 G3b / Moderately to severely decreased / 30-44 G4 / Severely decreased / 15-29 G5 / Kidney failure / <15 *In the absence of evidence of kidney damage, neither G1 nor G2 fulfill criteria for CKD. Blood 05/07/2023 1:56 PM COMPUTER SOFTWARE ENGINEER 05/07/2023 1:59 PM COMPUTER SOFTWARE ENGINEER Narrative [facility] - 05/07/2023 1:59 PM COMPUTER SOFTWARE ENGINEER Method description: The i-STAT is an analyzer used for in vitro quantification of various analytes in whole blood. The device uses a single disposable cartridge which contains microfabricated sensors, a calibration solution, fluidics system, and a waste chamber. Each test cartridge contains chemically sensitive biosensors on a silicon chip that are configured to perform specific tests. The microfabricated sensors measure analyte concentration by an electrochemical assay. Lizzy Brady APRN POCT ORDERABLES - DEVICE [facility] Unless otherwise noted, all lab tests performed by: Division of Pathology and Laboratory Medicine [address] [place] [id number] * EKG, 12-Lead (Scheduled) (05/07/2023) Kelsea Peraza MD ECG ORDERABLES ISAIAH IECG * OSI CT Abdomen (02/25/2023 12:25 PM COMPUTER SOFTWARE ENGINEER) Narrative Systemgenerated, Documentation - 04/02/2023 12:25 PM COMPUTER SOFTWARE ENGINEER Study acquired at another institution. For comparison only. No MD Bahena originated interpretation requested or available. Mansi Lui MD IMG OUTSIDE IMAGE OR DERABLES after 11/11/2022 Care Teams Affiliate Manager Relationship Specialty Start Date End Date Lorena Casas APRN [address] [place] [address] [address] [place] [phone] PCP - External Referring 03/17/23 Mansi Lui MD [address] [place] [id number] [email or web address] PCP - General Internal Medicine 03/25/23 04/13/23 Kelsea Peraza MD [facility] [place] [address] [email or web address] PCP - General Internal Medicine 04/14/23 07/22/23 Hesham Masters MD [address] [place] [id number] [email or web address] PCP - General Lymphoma and Myeloma 07/23/23 Hesham Masters MD [address] [place] [phone] [email or web address] Physician Lymphoma and Myeloma 06/30/23 07/22/23 Kelsea Peraza MD [address] [place] [id number] [email or web address] Physician Internal Medicine 07/23/23
[2023-11-11 06:10] LABS: Absolute Eosinophils 0.4 K/uL (0-0.5); Absolute Lymphocytes (CBC) 0.3 K/uL (0.7-4.9); Absolute Monocytes 0.3 K/uL (0.1-1.3); Absolute Neutrophil 1.5 K/uL (1.8-8.0); Basophils % 0.9 % (0-1.3); Eosinophils % 16.7 % (0-4.4); Hematocrit 40.5 % (39.6-49.0); Lymphocytes % 10.4 % (15.3-44.8); MCH 32.1 pg (27.0-35.0); MCHC 34.5 g/dL (32.0-36.0); MPV 8.2 fL (7.6-11.3); Monocytes % 12.2 % (3.3-12.3); Neutrophils % 59.8 % (41.7-73.7); Nucleated Red Blood Cells % 0.1 % (0-0); Platelets 55 thou/uL (152-406); RBC Red Blood Cell Count 4.36 M/uL (4.33-5.43); Red Cell Distribution Width 15.2 % (12.1-15.2)
[2023-11-11 06:25] LABS: Albumin 3.6 g/dL (3.4-5.0); Anion Gap 5.5 mEq/L (5.0-15.0); Bilirubin Total 2.3 mg/dL (0.2-1.0); Globulin 3.6 g/dL (2.3-3.5); Potassium 3.5 mEq/L (3.5-5.1); Protein, Total 7.2 g/dL (6.4-8.2)
[2023-11-11] MEDS ORDERED: ONDANSETRON 4 MG/2 ML VIAL ONE (06:25)
[2023-11-11] MEDS ORDERED: MORPHINE 4 MG/ML SYR ONE (06:25)
[2023-11-11] MEDS ORDERED: FAMOTIDINE 20 MG/2 ML VIAL IV ONE (06:25)
[2023-11-11] MEDS ORDERED: NA CHLORIDE 0.9% 2,000 ML ONE (06:26)
--- NOTE | 2023-11-11 06:58 | EDPHYS ---
Physician Documentation [facility] Name: Sandeep Lanza Age: 63 yrs Sex: Male : 1960 Arrival Date: 11/11/2023 Time: 05:07 Bed 2 Private MD: PRITESH Physician Bethel Bahena HPI: 11/10 05:24 This 63 yrs old Male presents to ER via Unassigned with complaints of rosaura Diarrhea. 05:24 The patient presents to the emergency department with nausea, vomiting, diarrhea, rosaura abdominal pain, of the right upper quadrant, left upper quadrant, right lower quadrant and abdomen diffusely. Onset: The symptoms/episode began/occurred 2 day(s) ago. Possible causes: unknown. The symptoms are aggravated by food , The symptoms are alleviated by nothing. remaining still. Associated signs and symptoms: Pertinent positives: abdominal pain, diarrhea, nausea, vomiting. Severity of symptoms: At their worst the symptoms were moderate in the emergency department the symptoms are unchanged. The patient has not experienced similar symptoms in the past. Historical: - Allergies: 05:33 No Known Allergies; al5 - Home Meds: 05:33 Symbicort 160-4.5 mcg/actuation inhalation HFAA [Active]; al5 - PMHx: 05:33 Asthma; Hepatitis C; follicular lymphoma; al5 - PSHx: 05:33 Cholecystectomy; hernia repair; al5 - Immunization history:: Adult Immunizations up to date. - Infectious Disease History:: Denies. - Family history:: not pertinent. - Social history:: Smoking status: Patient denies any tobacco usage or history of. ROS: 05:25 Constitutional: Negative for fever, chills, and weight loss, Eyes: Negative for injury, rosaura pain, redness, and discharge, ENT: Negative for injury, pain, and discharge, Neck: Negative for injury, pain, and swelling, Cardiovascular: Negative for chest pain, palpitations, and edema, Respiratory: Negative for shortness of breath, cough, wheezing, and pleuritic chest pain, Back: Negative for injury and pain, : Negative for injury, bleeding, discharge, and swelling, MS/Extremity: Negative for injury and deformity, Skin: Negative for injury, rash, and discoloration, Neuro: Negative for headache, weakness, numbness, tingling, and seizure, Psych: Negative for depression, anxiety, suicide ideation, homicidal ideation, and hallucinations, Allergy/Immunology: Negative for hives, rash, and allergies, Endocrine: Negative for neck swelling, polydipsia, polyuria, polyphagia, and marked weight changes, Hematologic/Lymphatic: Negative for swollen nodes, abnormal bleeding, and unusual bruising, 05:25 Abdomen/GI: Positive for abdominal pain, nausea and vomiting, diarrhea, Exam: 05:25 Constitutional: This is a well developed, well nourished patient who is awake, alert, rosaura and in no acute distress. Head/Face: Normocephalic, atraumatic. Eyes: Pupils equal round and reactive to light, extra-ocular motions intact. Lids and lashes normal. Conjunctiva and sclera are non-icteric and not injected. Cornea within normal limits. Periorbital areas with no swelling, redness, or edema. ENT: Nares patent. No nasal discharge, no septal abnormalities noted. Tympanic membranes are normal and external auditory canals are clear. Oropharynx with no redness, swelling, or masses, exudates, or evidence of obstruction, uvula midline. Mucous membranes moist. Neck: Trachea midline, no thyromegaly or masses palpated, and no cervical lymphadenopathy. Supple, full range of motion without nuchal rigidity, or vertebral point tenderness. No Meningismus. Chest/axilla: Normal chest wall appearance and motion. Nontender with no deformity. No lesions are appreciated. Cardiovascular: Regular rate and rhythm with a normal S1 and S2. No gallops, murmurs, or rubs. Normal PMI, no JVD. No pulse deficits. Respiratory: Lungs have equal breath sounds bilaterally, clear to auscultation and percussion. No rales, rhonchi or wheezes noted. No increased work of breathing, no retractions or nasal flaring. Back: No spinal tenderness. No costovertebral tenderness. Full range of motion. Male : Normal genitalia with no discharge or lesions. Skin: Warm, dry with normal turgor. Normal color with no rashes, no lesions, and no evidence of cellulitis. MS/ Extremity: Pulses equal, no cyanosis. Neurovascular intact. Full, normal range of motion. Neuro: Awake and alert, GCS 15, oriented to person, place, time, and situation. Cranial nerves II-XII grossly intact. Motor strength 5/5 in all extremities. Sensory grossly intact. Cerebellar exam normal. Normal gait. Psych: Awake, alert, with orientation to person, place and time. Behavior, mood, and affect are within normal limits. 05:25 Abdomen/GI: Inspection: distension, that is mild, Bowel sounds: hyperactive, in all quadrants, Palpation: mild abdominal tenderness, in the right upper quadrant, left upper quadrant, right lower quadrant and left lower quadrant, Liver: no appreciated palpable abnormalities, Hernia: not appreciated, 05:25 Musculoskeletal/extremity: DVT Exam: No signs of deep vein thrombosis. no pain, no swelling, no tenderness, negative Homans' sign noted on exam, no appreciated bluish discoloration, no erythema, no increased warmth, Vital Signs: 05:30 BP 121 / 85; Pulse 79; Resp 18; Pulse Ox 97% on R/A; al5 05:31 BP 135 / 84; Pulse 78; Resp 16; Temp 98; Pulse Ox 98% on R/A; Weight 97.98 kg; Height 5 al5 ft. 11 in. ; Pain 7/10; 05:45 BP 127 / 84; Pulse 72; Resp 18; Pulse Ox 98% on R/A; al5 06:00 BP 119 / 83; Pulse 72; Resp 18; Pulse Ox 97% on R/A; al5 06:15 BP 119 / 84; Pulse 72; Resp 18; Pulse Ox 98% on R/A; al5 07:15 BP 113 / 70; Pulse 77; Resp 16; Pulse Ox 96% on R/A; db 08:30 BP 115 / 78; Pulse 72; Resp 16; Pulse Ox 96% on R/A; db 10:00 BP 155 / 98; Pulse 77; Resp 18 S; Temp 98; Pulse Ox 98% on R/A; aa5 05:31 Body Mass Index 30.13 (97.98 kg, 180.34 cm) al5 05:31 Pain Scale: Adult al5 MDM: 05:11 Patient medically screened. [facility] 05:27 Differential diagnosis: Nonspecific abd pain, gastritis, cholecystitis, pancreatitis, rosaura appendicitis, diverticulitis, viral gastroenteritis, gastroenteritis. Data reviewed: vital signs, nurses notes, lab test result(s), radiologic studies, CT scan. Consideration of Admission/Observation Escalation of care including admission/observation considered. I considered the following discharge prescriptions or medication management in the emergency department Medications were administered in the Emergency Department. See MAR. Independent interpretation of the following test(s) in the Emergency Department CT Scan: My interpretation is ct abd/pelvis. Test considered but Not performed: Ultrasound no abd usg. Historians other than the Patient: Spouse/Significant Other: well informed. Care significantly affected by the following chronic conditions: Hypertension, Chronic Kidney Disease, follicular lymphomaa. Counseling: I had a detailed discussion with the patient and/or guardian regarding the historical points, exam findings, and any diagnostic results supporting the discharge/admit diagnosis, lab results, radiology results. 11/10 05:12 Order name: CBC with Diff [facility] 11/10 05:12 Order name: CMP; Complete Time: 06:33 [facility] 11/10 05:12 Order name: Lipase; Complete Time: 06:33 [facility] 11/10 05:12 Order name: Urinalysis w/ reflexes [facility] 11/10 05:12 Order name: Fecal Leukocyte Stain [facility] 11/10 05:12 Order name: Stool Culture [facility] 11/10 06:15 Order name: CBC Smear Scan [facility] 11/10 09:23 Order name: Manual Differential [facility] 11/10 10:12 Order name: Urinalysis w/ reflexes [facility] 11/10 10:20 Order name: C.difficile GDH Ag [facility] 11/10 10:20 Order name: SARS-COV-2 Antigen Rapid [facility] 11/10 10:20 Order name: Thyroid Stimulating Hormone [facility] 11/10 10:20 Order name: Urinalysis w/ reflexes [facility] 11/10 10:20 Order name: CBC with Automated Diff [facility] 11/10 10:20 Order name: CBC with Automated Diff [facility] 11/10 10:20 Order name: CBC with Automated Diff [facility] 11/10 10:20 Order name: CBC with Automated Diff [facility] 11/10 10:20 Order name: Comprehensive Metabolic Panel [facility] 11/10 10:20 Order name: Comprehensive Metabolic Panel [facility] 11/10 10:20 Order name: Comprehensive Metabolic Panel [facility] 11/10 10:20 Order name: Comprehensive Metabolic Panel [facility] 11/10 10:20 Order name: Lipid Profile [facility] 11/10 10:20 Order name: Lipid Profile [facility] 11/10 10:20 Order name: Magnesium [facility] 11/10 10:20 Order name: Magnesium [facility] 11/10 10:20 Order name: Magnesium [facility] 11/10 10:20 Order name: Magnesium [facility] 11/10 10:20 Order name: Phosphorus [facility] 11/10 10:20 Order name: Phosphorus [facility] 11/10 10:20 Order name: Phosphorus [facility] 11/10 10:20 Order name: Phosphorus [facility] 11/10 10:20 Order name: Blood Culture [facility] 11/10 05:12 Order name: CT Abd/Pelvis - IV Contrast Only [facility] 11/10 10:21 Order name: Abdomen 1 View (KUB) [facility] 11/10 05:12 Order name: IV Saline Lock; Complete Time: 06:36 rosaura 11/10 05:12 Order name: Labs collected and sent; Complete Time: 06:36 rosaura Administered Medications: 06:35 Drug: NS 0.9% IV 1000 ml IV at 1 bolus Per protocol; 1000 mL bolus Route: IV; Rate: 1 al5 bolus; Site: right antecubital; 06:35 Drug: Famotidine IVP 20 mg IVP once; dilute with 10 mL 0.9% NaCl; give over 2 minutes al5 Route: IVP; Site: right antecubital; 06:35 Drug: Ondansetron IVP 4 mg IVP once; over 2 minutes Route: IVP; Site: right antecubital;al5 06:35 Drug: NS 0.9% IV 1000 ml IV at 1 bolus Per protocol; 1000 mL bolus Route: IV; Rate: 1 al5 bolus; Site: right antecubital; 06:36 Drug: morphine IVP or IV 4 mg IVP once over 4 mins Route: IVP; Infused Over: 4 mins; al5 Site: right antecubital; Disposition Summary: 11/11/23 06:58 Hospitalization Ordered Notes: Hospitalization Status: Observation rosaura Provider: Jacki Mercado cha [facility] rosaura Condition: Stable rosaura Problem: new rosaura Symptoms: have improved rosaura Bed/Room Type: Standard rosaura Room Assignment: 219(11/11/23 10:16) ja1 Diagnosis - Vomiting rosaura - Diarrhea, unspecified rosaura - Generalized abdominal tenderness rosaura - Neutropenia, unspecified rosaura - Thrombocytopenia, unspecified rosaura Forms: - Medication Reconciliation Form rosaura - SBAR form rosaura - Leadership Thank You Letter rosaura Signatures: Dispatcher [employer] Bethel Monae MD MD cha Aguilar, Thad, RN RN ja1 Selma Esteves RN RN al5 Corrections: (The following items were deleted from the chart) 05:12 05:12 CBC+H.LAB.BRZ ordered. EDMS EDMS 05:12 05:12 COMPREHENSIVE METABOLIC PANEL+C.LAB.BRZ ordered. EDMS EDMS 05:12 05:12 LIPASE+C.LAB.BRZ ordered. EDMS EDMS 05:12 05:12 Urinalysis+U.LAB.BRZ ordered. EDMS EDMS 05:12 05:12 Fecal Leukocyte Stain+BA.LAB.BRZ ordered. EDMS EDMS 05:12 05:12 Stool Culture+BA.LAB.BRZ ordered. EDMS EDMS 05:13 05:12 Abdomen Pelvis W Con+CT.RAD.BRZ ordered. EDMS EDMS 10:16 06:58 rosaura [email or web address]
--- NOTE | 2023-11-11 06:58 | ER ---
Nurse's Notes [facility] Name: Sandeep Lanza Age: 63 yrs Sex: Male : 1960 Arrival Date: 11/11/2023 Time: 05:07 Bed 2 Private MD: Diagnosis: Vomiting;Diarrhea, unspecified;Generalized abdominal tenderness;Neutropenia, unspecified;Thrombocytopenia, unspecified Presentation: 11/10 05:31 Chief complaint: Patient states: c/o of diarrhea since Wednesday. states he had nausea and al5 vomiting as well but stopped on Wednesday. also c/o lower abdominal pain, more so on the right lower quadrant. Coronavirus screen: At this time, the client does not indicate any symptoms associated with coronavirus-19. Ebola Screen: No symptoms or risks identified at this time. Initial Sepsis Screen: Does the patient meet any 2 criteria? No. Patient's initial sepsis screen is negative. Does the patient have a suspected source of infection? No. Patient's initial sepsis screen is negative. Risk Assessment: Do you want to hurt yourself or someone else? Patient reports no desire to harm self or others. Onset of symptoms was November 05, 2023. 05:31 Method Of Arrival: Ambulatory al5 05:31 Acuity: AMEENA 3 al5 Triage Assessment: 05:34 General: Appears in no apparent distress. uncomfortable, Behavior is calm, cooperative. al5 Pain: Complains of pain in right lower quadrant and left lower quadrant Pain currently is 8 out of 10 on a pain scale. EENT: No signs and/or symptoms were reported regarding the EENT system. Neuro: Level of Consciousness is awake, alert, obeys commands, Oriented to person, place, time, situation. Cardiovascular: Patient's skin is warm and dry. Respiratory: Airway is patent Respiratory effort is even, unlabored, Respiratory pattern is regular, symmetrical. GI: Abdomen is round distended, Reports lower abdominal pain, diarrhea. : No signs and/or symptoms were reported regarding the genitourinary system. Derm: Skin is intact, Skin is pink, warm \T\ dry. normal. Musculoskeletal: No signs and/or symptoms reported regarding the musculoskeletal system. Historical: - Allergies: 05:33 No Known Allergies; al5 - Home Meds: 05:33 Symbicort 160-4.5 mcg/actuation inhalation HFAA [Active]; al5 - PMHx: 05:33 Asthma; Hepatitis C; follicular lymphoma; al5 - PSHx: 05:33 Cholecystectomy; hernia repair; al5 - Immunization history:: Adult Immunizations up to date. - Infectious Disease History:: Denies. - Family history:: not pertinent. - Social history:: Smoking status: Patient denies any tobacco usage or history of. Screenin:36 [facility] ED Fall Risk Assessment (Adult) History of falling in the last 3 months, al5 including since admission No falls in past 3 months (0 pts) Confusion or Disorientation No (0 pts) Intoxicated or Sedated No (0 pts) Impaired Gait No (0 pts) Mobility Assist Device Used No (0 pt) Altered Elimination No (0 pt) Score/Fall Risk Level 0 - 2 = Low Risk Oriented to surroundings, Maintained a safe environment, Hourly rounding (assess needs \T\ fall precautionary measures) done. Abuse screen: Denies threats or abuse. Denies injuries from another. Nutritional screening: No deficits noted. Tuberculosis screening: No symptoms or risk factors identified. Assessment: 05:36 Reassessment: see triage assessment. al5 06:48 Reassessment: Patient appears in no apparent distress at this time. No changes from al5 previously documented assessment. Patient and/or family updated on plan of care and expected duration. Pain level reassessed. Patient is alert, oriented x 3, equal unlabored respirations, skin warm/dry/pink. 07:15 Reassessment: IS AT BEDSIDE. General: Appears in no apparent distress. db comfortable, Behavior is calm, cooperative. 08:49 Reassessment: Patient appears in no apparent distress at this time. Patient and/or db family updated on plan of care and expected duration. Pain level reassessed. Patient is alert, oriented x 3, equal unlabored respirations, skin warm/dry/pink. 10:30 Reassessment: Patient is alert/active/playful, equal unlabored respirations, skin aa5 warm/dry/pink. Vital Signs: 05:30 BP 121 / 85; Pulse 79; Resp 18; Pulse Ox 97% on R/A; al5 05:31 BP 135 / 84; Pulse 78; Resp 16; Temp 98; Pulse Ox 98% on R/A; Weight 97.98 kg; Height 5 al5 ft. 11 in. ; Pain 7/10; 05:45 BP 127 / 84; Pulse 72; Resp 18; Pulse Ox 98% on R/A; al5 06:00 BP 119 / 83; Pulse 72; Resp 18; Pulse Ox 97% on R/A; al5 06:15 BP 119 / 84; Pulse 72; Resp 18; Pulse Ox 98% on R/A; al5 07:15 BP 113 / 70; Pulse 77; Resp 16; Pulse Ox 96% on R/A; db 08:30 BP 115 / 78; Pulse 72; Resp 16; Pulse Ox 96% on R/A; db 10:00 BP 155 / 98; Pulse 77; Resp 18 S; Temp 98; Pulse Ox 98% on R/A; aa5 05:31 Body Mass Index 30.13 (97.98 kg, 180.34 cm) al5 05:31 Pain Scale: Adult al5 ED Course: 05:10 Patient arrived in ED. [email or web address] 05:11 Bethel Bahena MD is Attending Physician. rosaura 05:31 Selma Esteves, JOSÉ MIGUEL is Primary Nurse. al5 05:33 Triage completed. al5 05:36 Arm band placed on right wrist. Patient placed in the treatment room, on a stretcher. al5 05:37 Patient has correct armband on for positive identification. Bed in low position. Call al5 light in reach. Side rails up X 1. Provided Education on: processes and procedures. 05:37 No provider procedures requiring assistance completed. al5 06:47 CT Abd/Pelvis - IV Contrast Only In Process Unspecified. EDMS 06:57 Jacki Mercado MD is Hospitalizing Provider. rosaura 10:30 IV 20G to R AC . aa5 11:00 Patient admitted, IV remains in place. aa5 Administered Medications: 06:35 Drug: NS 0.9% IV 1000 ml IV at 1 bolus Per protocol; 1000 mL bolus Route: IV; Rate: 1 al5 bolus; Site: right antecubital; 06:35 Drug: Famotidine IVP 20 mg IVP once; dilute with 10 mL 0.9% NaCl; give over 2 minutes al5 Route: IVP; Site: right antecubital; 06:35 Drug: Ondansetron IVP 4 mg IVP once; over 2 minutes Route: IVP; Site: right antecubital;al5 06:35 Drug: NS 0.9% IV 1000 ml IV at 1 bolus Per protocol; 1000 mL bolus Route: IV; Rate: 1 al5 bolus; Site: right antecubital; 06:36 Drug: morphine IVP or IV 4 mg IVP once over 4 mins Route: IVP; Infused Over: 4 mins; al5 Site: right antecubital; Medication: 05:36 VIS not applicable for this client. al5 Outcome: 06:58 Decision to Hospitalize by Provider. rosaura 11:00 Admitted to Med/surg accompanied by tech, family with patient, via wheelchair, aaDayron 11:00 Condition: stable aa5 11:00 Instructed on the need for admit, Demonstrated understanding of instructions, 11:10 Patient left the ED. aa5 Signatures: Dispatcher [employer] EDBethel Rosario MD MD cha Calderon, Audri, RN RN aa5 Lilia Ortiz RN RN ll1 Mikaela Moreno Sirisha Lynn RN RN db Langhorst, Amanda, RN RN al5 Corrections: (The following items were deleted from the chart) 11:26 11:22 Patient left the ED. ll1 aa5
--- NOTE | 2023-11-11 08:00 | RAD REPORT ---
EXAM DESCRIPTION: CTAbdomen Pelvis W Contrast - 11/11/2023 6:45 am CLINICAL HISTORY: Abdominal pain. ABD PAIN COMPARISON: CT ABD PELVIS W CONTRAST dated 11/02/2014; CT RAD RX FIELD SPINE dated 08/11/2023 TECHNIQUE: CT imaging of the abdomen and pelvis was performed with 100 ml non-ionic IV contrast. All CT scans are performed using dose optimization technique as appropriate and may include automated exposure control or mA/KV adjustment according to patient size. FINDINGS: Mild linear atelectasis is seen in both lung bases.Small hiatal hernia. The liver is mildly prominent size with cholecystectomy clips. Mildly nodular liver contour suggestin g underlying cirrhosis. Moderate splenomegaly. The pancreas, adrenal glands and kidneys within normal limits. 9 cm area of soft tissue is seen in the has small bowel mesenteries centrally. This surrounds the karolina ro mesenteric vessels. Several mildly prominent fluid-filled small bowel loops are seen right lower quadrant. These loops appear mildly distended. Diverticulosis coli is present involving the colon. Mild lower lumbar degenerative changes. IMPRESSION: Mild liver cirrhosis with moderate splenomegaly. Several mildly prominent fluid-filled and dilated small bowel loops in the right lower quadrant noted . This is most likely a mild partial mechanical obstruction. 9 cm area of soft tissue fullness surrounding the mesenteric vessels in the proximal small bowel mese nteric appears improved since 08/10/2013 study. This is likely related to underlying lymphoma diagnos is.
[2023-11-11 09:15] LABS: Specific Gravity > 1.030 (1.005-1.030); Urine Bilirubin NEGATIVE (Negative); Urine Blood Negative (Negative); Urine Clarity Clear (Clear); Urine Color Light-Yellow (Yellow); Urine Glucose NEGATIVE (Negative); Urine Ketones NEGATIVE (Negative); Urine Microscopic Reflex YN NO UMIC; Urine Nitrite NEGATIVE (Negative); Urine Protein NEGATIVE (Negative); Urine Urobilinogen Normal (Normal); Urine pH 5.5 (5.0-7.0)
[2023-11-11 09:23] LABS: Atypical Lymphocytes 2 %; Band Neutrophils 5 % (0-1); Blood Morphology Comment NOT SEEN (NOT SEEN); Differential Total Cells Count 100; Eosinophils 20 % (0-3); Lymphocytes 8 % (15-42); Monocytes 9 % (0-10); Platelet Estimate DECR; Segmented Neutrophils 59 % (40-80); White Blood Cell Scan OK (OK)
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
[2023-11-11] MEDS ORDERED: PROMETHAZINE INJ 25 MG/ML AMP IV PRN (10:10)
[2023-11-11] MEDS ORDERED: SODIUM CHLORIDE 0.9% 10ML INJ IV PRN (10:19)
[2023-11-11 11:25] LABS: Thyroid Stimulating Hormone 4.59 uIU/mL (0.358-3.740)
[2023-11-11 12:00] VITALS: BMI 30.1
[2023-11-11] MEDS: IPRATROPIUM BROM 0.5MG/2.5ML NEB SCH (13:00)
[2023-11-11] MEDS: NA CHLORIDE 0.9% 1,000 ML IV SCH (14:18)
[2023-11-11] MEDS: ARFORMOTEROL TARTRATE 15 MCG/2 ML VIAL.NEB NEB SCH (19:00)
[2023-11-11] MEDS: CIPROFLOXACIN 400mg IV 400 MG/200 ML BAG IV SCH (20:46)
[2023-11-11] MEDS: PANTOPRAZOLE 40 MG INJ IVP SCH (20:49)
[2023-11-11] MEDS: MELATONIN 3 MG TABLET PO ONE (23:10)
[2023-11-12] MEDS: MORPHINE 4 MG/ML SYR IV PRN (01:49)
[2023-11-12 02:08] VITALS: O2SAT 98
[2023-11-12 04:35] LABS: Absolute Eosinophils 0.3 K/uL (0-0.5); Absolute Lymphocytes (CBC) 0.2 K/uL (0.7-4.9); Absolute Monocytes 0.2 K/uL (0.1-1.3); Basophils % 0.9 % (0-1.3); Eosinophils % 14.1 % (0-4.4); Hematocrit 36.4 % (39.6-49.0); Hemoglobin 12.7 g/dL (13.6-17.9); Lymphocytes % 13.9 % (15.3-44.8); MCH 32.3 pg (27.0-35.0); MCHC 34.8 g/dL (32.0-36.0); MCV 92.9 fL (80-100); MPV 8.6 fL (7.6-11.3); Monocytes % 13.9 % (3.3-12.3); Neutrophils % 57.2 % (41.7-73.7); Nucleated Red Blood Cells % 0.1 % (0-0); Platelets 46 thou/uL (152-406); RBC Red Blood Cell Count 3.92 M/uL (4.33-5.43)
[2023-11-12 04:57] LABS: Albumin 2.9 g/dL (3.4-5.0); Albumin/Globulin Ratio 0.9 (1.1-1.8); Anion Gap 6.6 mEq/L (5.0-15.0); Bilirubin Total 2.4 mg/dL (0.2-1.0); Globulin 3.1 g/dL (2.3-3.5); Magnesium 1.7 mg/dL (1.6-2.4); Phosphorus 3.3 mg/dL (2.5-4.9); Potassium 3.6 mEq/L (3.5-5.1)
--- NOTE | 2023-11-12 08:17 | RAD REPORT ---
EXAM DESCRIPTION: RAD - Abdomen 1 View (KUB) - 11/12/2023 6:29 am CLINICAL HISTORY: Abdomen pain FINDINGS: Several loops of borderline dilated small bowel within the right abdomen appear mildly dim inished in size since prior CT. This probably indicates improvement in the suspected obstruction Remainder of the bowel gas pattern is unremarkable Surgical clips right upper quadrant
[2023-11-12] MEDS: MAGNESIUM SULFATE 1 gm IVPB 1 GM/100 ML BAG IV ONE (08:27)
[2023-11-12 09:55] LABS: C.diff Antigen/Toxin Ag neg : Tox neg (NEG : NEG); CDIFF INTERNAL NEG CONTROL White Background (WHITE BKGD); STOOL CONSISTENCY Liquid/Semi-Solid
[2023-11-12 12:58] VITALS: TEMP 97.8
--- NOTE | 2023-11-12 15:16 | P.DS ---
Admission Date: 11/11/23 Discharge Date: 11/12/23 Primary Care Provider: Munira Brownlee Disposition: ROUTINE DISCHARGE Discharge Condition: GOOD Reason for Admission: SBO, fever, thrombocytopenia Brief History of Present Illness: Mr. Lanza is a 63-year-old gentleman with a past medical history of hepatitis C (took Mavyret and is in remission), follicular lymphoma (last radiation treatment on 10/31/2023), and thrombocytopenia. After his last radiation treatment, he ate at a restaurant and soon after began feeling poorly. Wednesday night and through Wednesday he had significant nausea, vomiting, diarrhea, and gen eralized but mostly right sided upper and lower abdominal pain. He does report chills and fever Wednesday through Wednesday. Wednesday he saw his PCP and received a prescription for Bentyl and Zofran. He presented to the emergency department this morning fearing dehydration. 2 L normal saline bolus, Pepcid, morphine, and Zofran given in the emergency department and patient had a CT of the abdomen and pelvis which shows cholecystectomy clips and a small bowel obstruction. He will be admitted for further evaluation and treatment. NG tube placement as needed for any further vomiting. Laboratory evaluation shows a white count of 2.4 with 20% eosinophils and 5 bands, platelets unremarkable at 55, Chem-7 unremarkable except a total bili of 2.3, urine negative with a specific gravity of greater than 1.03 Imaging IMPRESSION: Mild liver cirrhosis with moderate splenomegaly. Several mildly prominent fluid-filled and dilated small bowel loops in the right lower quadrant noted. This is most likely a mild partial mechanical obstruction. 9 cm area of soft tissue fullness surrounding the mesenteric vessels in the proximal small bowel mesenteric appears improved since 08/10/2013 study. This is likely related to underlying lymphoma diagnosis. Hospital Course: Pt is a 63yo gentleman with past medical history of follicular lymphoma, hepatitis C, follicular lymphoma (last radiation treatment on 10/31/2023), and thrombocytopenia who presented with fever, nausea, vomiting, diarrhea, and abdominal pain. On admission, CT of the abdomen and pelvis showed several mildly prominent fluid-filled and dilated small bowel loops in the right lower quadrant noted. This was most likely a mild partial mechanical obstruction and 9cm area of soft tissue fullness, suggesting lymphoma. Lab studies showed wbc 2.4, Hgb 14, K 3.5, Cr 0.83, TSH 4,59 and free t4 1.24. We admitted pt for SBO and kept him NPO. Pt continued to pass gas and have bowel movement. C diff was negative. Pt tolerated clear liquid diet. Gen surgeon evaluated pt and cleared him for discharge. We continued cipro and prn antiemetic for sepsis 2/2 acute gastroenteritis. Pt was advised to follow up with his PCP and Oncologist on out pt. He was in NAD prior to discharge. Vital Signs/Physical Exam: Temp Pulse Resp BP Pulse Ox 97.8 F 72 16 138/77 99 11/12/23 12:00 11/12/23 12:00 11/12/23 12:00 11/12/23 12:00 11/12/23 12:00 Laboratory Data at Discharge: WBC 1.80 thou/uL (4.3-10.9) L 11/12/23 04:00 Hgb 12.7 g/dL (13.6-17.9) L D 11/12/23 04:00 Hct 36.4 % (39.6-49.0) L 11/12/23 04:00 Plt Count 46 thou/uL (152-406) L 11/12/23 04:00 Sodium 141 mEq/L (136-145) 11/12/23 04:00 Potassium 3.6 mEq/L (3.5-5.1) 11/12/23 04:00 BUN 9 mg/dL (7-18) 11/12/23 04:00 Creatinine 0.69 mg/dL (0.70-1.30) L 11/12/23 04:00 Glucose 95 mg/dL (74-106) 11/12/23 04:00 Phosphorus 3.3 mg/dL (2.5-4.9) 11/12/23 04:00 Magnesium 1.7 mg/dL (1.6-2.4) 11/12/23 04:00 Total Bilirubin 2.4 mg/dL (0.2-1.0) H 11/12/23 04:00 AST 46 U/L (15-37) H 11/12/23 04:00 ALT 55 U/L (16-61) 11/12/23 04:00 Alkaline Phosphatase 67 U/L (45-117) 11/12/23 04:00 Triglycerides 101 mg/dL (<150) 11/12/23 04:00 Cholesterol 80 mg/dL (<200) 11/12/23 04:00 HDL Cholesterol 24 mg/dL (40-60) L 11/12/23 04:00 Cholesterol/HDL Ratio 3.33 11/12/23 04:00 Lipase 21 U/L (13-75) 11/11/23 05:58 Home Medications: Budesonide/Formoterol Fumarate [Symbicort 160-4.5 Mcg Inhaler] 1 puff IH DAILY 05/25/16 Ciprofloxacin HCl [Cipro 500 MG Tablet] 500 mg PO BID 5 Days #10 tab 11/12/23 New Medications: Ciprofloxacin HCl [Cipro 500 MG Tablet] 500 mg PO BID 5 Days #10 tab Physician Discharge Instructions: Continue ad yadira activity as tolerated. Take home meds as prescribed. Continue clear liquid diet or soup over the next 3 days before advancing to mechanical soft diet. Follow up with PCP and oncologist in clinic within 1 - 2 weeks. Diet: AHA Activity: Ad yadira Followup: Munira Guan FNP [Primary Care Provider] -
[2023-11-12 17:09] VITALS: BP 129/89
== END 2023-11-12 18:40 | disposition home or self-care (01) | DRG 872 ==
LOC: ER 05:07 → ERHOLD 10:08 → 2ND 11:17
PROVIDERS: ADMIT Hospitalist; ATTEND Hospitalist
DX: A41.9 Sepsis, unspecified organism (principal); K56.600 Partial intestinal obstruction, unspecified as to cause; C85.90 Non-Hodgkin lymphoma, unspecified, unspecified site; I12.9 Hypertensive chronic kidney disease with stage 1 through stage 4 chronic kidney disease, or unspecified chronic kidney disease; N18.9 Chronic kidney disease, unspecified; D70.9 Neutropenia, unspecified; K52.9 Noninfective gastroenteritis and colitis, unspecified; D69.6 Thrombocytopenia, unspecified; Z79.51 Long term (current) use of inhaled steroids; Z90.49 Acquired absence of other specified parts of digestive tract; Z87.891 Personal history of nicotine dependence
CPT/HCPCS: 36415; 74018; 74177; 80053; 80061; 81003; 83690; 83735; 84100; 84439; 84443; 85025; 87040; 87045; 87046; 87324; 89055; 96374; 96375; 99285; J0744; J2405; J2470; J3475; J7030; J7605; J7644; Q9967

== ENCOUNTER 2024-02-28 11:25 | Emergency (ER) | payer BC ==
--- OUTSIDE RECORDS SUMMARY | 2024-02-28 11:30 | XMS REPORT | Clinical Summary ---
Author Name Unknown Organization [facility] Address [address] [place] [address] Care Team Providers Care Painter Helper Spray Name Role Phone Lorena Casas APRN Unavailable [phone] Mansi Lui MD Primary Care Provider [phone] Kelsea Peraza MD Primary Care Provider [phone] Hesham Masters MD Unavailable [phone] Hesham Masters MD Primary Care Provider [phone] Kelsea Peraza MD Unavailable [phone] Allergies No known active allergies Medications Symbicort 160-4.5 mcg/actuation inhaler Inhale 2 puffs by mouth as needed. Active albuterol (VENTOLIN HFA,PROAIR HFA) 90 mcg/puff inhaler Inhale 1-2 puffs by mouth as needed. Active levoFLOXacin (LEVAQUIN) 750 mg tabletIndicati ons:Follicular lymphoma, NOS of intra-abdomina l lymph nodes Take 1 tablet (750 mg) by mouth daily. 7 tablet 07/23/19 24 Active levothyroxine (SYNTHROID, LEVOTHROID) 25 mcg tablet Take 1 tablet (25 mcg) by mouth daily. 024 Discontinued(Th erapy completed) UNABLE TO FIND Take 1 tablet by mouth daily. Med Name: LiverMD 024 Discontinued Active Problems Patient Care Coordination No te Formatting of this note migh t be different from the original. Patient has Fridays off from work and prefers Wednesday appts as that is the only weekday he can get a ride into [place]. Problem Noted Date Diagnosed Date Follicular lymphoma, grade 2 of intra-abdominal lymph nodes 07/29/2023 Headache 02/15/2023 Vitamin D deficiency 02/15/2023 Allergic rhinitis 10/07/2021 FH: Cardiovascular disease 01/21/2021 Peripheral vascular disease 08/28/2020 Hypothyroidism 02/01/2020 Reactive airway disease 03/02/2019 Increased liver function 03/02/2019 Encounters Date Type Department Care Team Description 12/01/2023 Telephone [facility] [address] [place] [address], [facility] [place] [address] Ellie Gray RN 07/30/2023 10:00 AM CDT Telemedicine [facility] [address] [place] [address], [facility] [place] [address] Hesham Mastesr MD Follicular lymphoma, grade 2 of intra-abdominal lymph nodes (Primary Dx); Follicular lymphoma, NOS of intra-abdominal lymph nodes 07/30/2023 Telephone [facility] [address] [place] [address], [address] [place] [address] [place] [address] Ellie Gray RN 07/26/2023 Orders Only [facility] [address] [place] [address], 1st Floor [place] [address] Umesh Gan APRN Follicular lymphoma, grade 2 of lymph node, NOS (Primary Dx) 07/23/2023 3:00 PM CDT Follow-Up [facility] [address] [place] [address], [facility] [place] [address] Hesham Masters MD Follicular lymphoma, NOS of intra-abdominal lymph nodes (Primary Dx) 07/23/2023 11:00 AM CDT Ancillary Procedure PET Imaging [address] [facility], [facility] [place] [address] Sandie Delaney PA Follicular lymphoma grade II of lymph nodes of multiple sites 07/23/2023 8:38 AM CDT - 07/23/2023 11:59 PM CDT Hospital Encounter [facility] [address] [place] [address], 11th [place] [address] Cynthia Damian APRN Cook, Robin Michelle, APRN Follicular lymphoma, NOS of intra-abdominal lymph nodes Discharge Disposition: Home 07/23/2023 7:13 AM CDT - 07/23/2023 8:37 AM CDT Hospital Encounter [facility] [address] [place] [address] Cynthia Damian APRN Follicular lymphoma, NOS of intra-abdominal lymph nodes; Follicular lymphoma, grade 2 of intra-abdominal lymph nodes Discharge Disposition: Home 07/23/2023 Travel 07/15/2023 Orders Only [facility] [address] [place] [address], [facility] [place] [address] Brenda Cespedes PA 07/15/2023 Orders Only [facility] [address] [place] [address], [facility] [place] [address] Nadege Parker APRN Follicular lymphoma, grade 2 of intra-abdominal lymph nodes (Primary Dx) 07/09/2023 3:00 PM CDT - 07/09/2023 11:59 PM CDT Hospital Encounter [facility] [address] [place], [place] [address]ator [place] [address] Sandie Delaney PA Follicular lymphoma grade II of lymph nodes of multiple sites Discharge Disposition: Home 07/09/2023 2:00 PM CDT Consult [facility] [address] [place] [address], [facility] [place] [address] Hesham Masters MD Follicular lymphoma, NOS of intra-abdominal lymph nodes (Primary Dx); Lymphadenopathy 07/09/2023 12:56 PM CDT - 07/09/2023 2:59 PM CDT Hospital Encounter Cardiopulmonary Center [address] [place] [address], 6th [place] [address] Sandie Delaney PA Follicular lymphoma grade II of lymph nodes of multiple sites Discharge Disposition: Home 07/09/2023 Orders Only [facility] [address] [facility] Main dg, 6th [place] [address] Cynthia Damian APRN Follicular lymphoma, grade 2 of intra-abdominal lymph nodes (Primary Dx) 07/09/2023 Travel 07/07/2023 Orders Only [facility] Main [facility], 6th [place] [address] Sandie Delaney PA Follicular lymphoma grade II of lymph nodes of multiple sites (Primary Dx) 06/29/2023 1:30 PM CDT Telemedicine Internal Medicine Center [address] [place] [address], 9th [place] [address] Huong Foster APRN Lymphadenopathy (Primary Dx) 06/28/2023 [facility] [address] [place] [address], 9th [place] [address] Huong Foster APRN 06/18/2023 12:40 PM CDT - 06/18/2023 11:59 PM CDT Hospital Encounter Interventional Radiology [address] [place] [address], 4th [place] [address] Lizzy Brady, Neela Piedra MD Lymphadenopathy Discharge Disposition: Home 06/18/2023 12:11 PM CDT - 06/18/2023 12:39 PM CDT Hospital Encounter [facility] [address] [place] [address] Kelsea Peraza MD Abnormal finding on diagnostic imaging of other abdominal region including retroperitoneum; Encounter for other preprocedural examination Discharge Disposition: Home 06/18/2023 Travel 06/17/2023 12:36 PM CDT - 06/17/2023 11:59 PM CDT Hospital Encounter Interventional Radiology [address] [place] [address], 4th [place] [address] Kelsea Peraza MD Simon, Teresa Allen, PA-C Abdominal mass <Unspecified side; Unspecified site; Intra-abdominal and pelvic swelling, mass and lump> (Primary Dx); Reactive airway disease; Encounter for other preprocedural examination Discharge Disposition: Home 06/14/2023 Orders Only Main Interventional Radiology [address] [facility] dg, 3rd [place] [address] Lynette Bradford PA-C Encounter for other preprocedural examination (Primary Dx) 06/07/2023 Orders Only Interventional Radiology [address] [facility], 4th [place] [address] Zoila Rogers PA-C Abnormal finding on diagnostic imaging of other abdominal region including retroperitoneum (Primary Dx) 06/07/2023 Telephone MD [facility] [address] [place] [address] Emily Sierra CPhT 06/02/2023 Orders Only Internal Medicine Center [address] [facility] Main Bldg, 9th [place] [address] Lizzy Brady APRN Lymphadenopathy (Primary Dx) 06/01/2023 Telephone Internal Medicine Center [address] [facility] Main Bldg, 9th [place] [address] Elina Gaxiola, RN Appointment 05/18/2023 Orders Only Interventional Radiology [address] [facility], 4th Floor Elevator T [place], [place] [phone] Mikaela Reddy PA-C 05/10/2023 Orders Only Internal Medicine Center [address] [facility] Main Bldg, 9th Floor Elevator [address] [place], [place] [phone] Kelsea Peraza MD 05/07/2023 2:59 PM CAN TESTER - 05/07/2023 11:59 PM CAN TESTER Hospital Encounter [facility] [address] [facility] Main Bldg, 2nd [place] [address] Kelsea Peraza MD Lymphadenopathy; Abnormal finding on diagnostic imaging of other abdominal region including retroperitoneum Discharge Disposition: Home 05/07/2023 2:59 PM CAN TESTER - 05/07/2023 11:59 PM CAN TESTER Hospital Encounter [facility] [address] [place] [address], [facility] [place] [address] Huong Foster APRN Increased liver function (Primary Dx); Abnormal finding on diagnostic imaging of other abdominal region including retroperitoneum; 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; Peripheral vascular disease; FH: Cardiovascular disease; Reactive airway disease Discharge Disposition: Home 05/07/2023 12:55 PM CAN TESTER Ancillary Procedure CT Imaging 1220 [facility], 7th Floor Elevator T [place] [id number] Lizzy Brady APRN Abnormal finding on diagnostic imaging of other abdominal region including retroperitoneum; Lymphadenopathy 05/07/2023 11:00 AM CAN TESTER Office Visit [facility] Center [address] [place] [address], 9th [place] [address] Mansi Lui MD Potter, Lucy M, MD Lymphadenopathy (Primary Dx); Abnormal finding on diagnostic imaging of other abdominal region including retroperitoneum; 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 05/07/2023 Travel 05/06/2023 Orders Only [facility] [address] [place] [address], 9th [place] [address] Lizzy Brady APRN Abnormal finding on diagnostic imaging of other abdominal region including retroperitoneum (Primary Dx); Lymphadenopathy 04/06/2023 11:00 AM CAN TESTER NPR [facility] PATIENT ACCESS Mansi Lui MD 04/02/2023 8:00 PM CAN TESTER Ancillary Procedure Image Library [address] [place] [address] Mansi Lui MD Cancer 03/30/2023 Travel 03/24/2023 Telephone [facility] PATIENT ACCESS Remberto Sherwood RN after 02/28/2023 Surgical History Surgery Date Site/Laterality Comments LIVER [...] Recorded Sex Assigned at Not on file Legal Sex Male 3:23 PM CAN TESTER Gender Identity Not on file Sexual Orientation Not on file Obstetrics History Last Filed [...] cm (5' 8.5") 05/07/2023 10:4 1 AM CAN TESTER Body Mass Index 34.09 05/07/2023 10:41 AM CAN TESTER Plan of Treatment Health Maintenance Due Date Last Done Comments COVID-19 Vaccine (#1) 07/25/1965 Pneumococcal Vaccine: 65+ Years (1 of 2 - PCV) 965 Influenza Vaccine (#1) 2023 Procedures Procedure Name Priority Date/Time Associated Diagnosis [...] Follicular lymphoma, NOS of intra-abdominal lymph nodes [facility] CP CG 72HR CPG CULTURE Routine 07/23/2023 9:33 AM CDT Follicular lymphoma, NOS of intra-abdominal lymph nodes HP CG CHROMOSOME ANALYSIS INTERPRETATION AND REPORT Routine 07/23/2023 9:33 AM CDT Follicular lymphoma, NOS of intra-abdominal lymph nodes HC IGH/BCL2 (T(14;18)) MBR Routine 07/23/2023 9:33 AM CDT Follicular lymphoma, NOS of intra-abdominal lymph nodes HC RT CCND1(BCL1)/IGH MTC Routine 07/23/2023 9:33 AM CDT Follicular lymphoma, NOS of intra-abdominal lymph nodes [facility] CP CYTOGENETICS WORKUP Routine 07/23/2023 9:33 AM CDT Follicular lymphoma, NOS of intra-abdominal lymph nodes [facility] FLOW CYTOMETRY WORKUP - B-CELL LYMPHOMA Routine 07/23/2023 9:33 AM CDT Follicular lymphoma, NOS of intra-abdominal lymph nodes NE DIAGNOSTIC BONE MARROW BIOPSIES & ASPIRATIONS Routine [...] IGM ANTIBODY SERUM Routine 05/07/2023 3:20 PM CAN TESTER Abnormal finding on diagnostic imaging of other abdominal region including retroperitoneum [place] MISC TEST Routine 05/07/2023 3:20 PM CAN TESTER Abnormal finding on diagnostic imaging of other abdominal region including retroperitoneum 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 Increased liver function Peripheral vascular disease FH: Cardiovascular disease Reactive airway disease .CBC Routine 05/07/2023 3:20 PM CAN TESTER Abnormal finding on diagnostic imaging of other abdominal region including retroperitoneum HEPATIC FUNCTION PANEL Routine 3:20 PM CAN TESTER Abnormal finding on diagnostic imaging of other abdominal region including retroperitoneum CHROMOGRANIN A Routine 05/07/2023 3:20 PM CAN TESTER Abnormal finding on diagnostic imaging of other abdominal region including retroperitoneum SEROTONIN LEVEL Routine 05/07/2023 3:20 PM CAN TESTER Abnormal finding on diagnostic imaging of other abdominal region including retroperitoneum HBV DNA QUANT Routine 05/07/2023 3:20 PM CAN TESTER 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 HEPATITIS E IGM AB Routine 05/07/2023 3: 20 PM CAN TESTER 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 HEPATITIS E IGG AB Routine 05/07/2023 3: 20 PM CAN TESTER 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 HEPATITIS D ANTIGEN Routine 05/07/2023 3 :20 PM CAN TESTER 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 HEPATITIS C VIRUS RNA DETECT/QUANT, SERUM Routine 05/07/2023 3:20 PM CAN TESTER 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 HEPATITIS C VIRUS ANTIBODY Routine 05/07/2023 3:20 PM CAN TESTER 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 HEPATITIS B CORE ANTIBODY Routine 05/07/2023 3:20 PM CAN TESTER 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 HEPATITIS B SURFACE ANTIGEN Routine 05/07/2023 3:20 PM CAN TESTER 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 HEPATITIS B SURFACE ANTIBODY Routine 05/07/2023 3:20 PM CAN TESTER 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 HEPATITIS A VIRUS PANEL Routine 05/07/19 3:20 PM CAN TESTER 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 PROSTATE SPECIFIC ANTIGEN Routine 05/07/2023 3:20 PM CAN TESTER Abnormal finding on diagnostic imaging of other abdominal region including retroperitoneum CARCINOEMBRYONIC ANTIGEN Routine 05/07/2023 3:20 PM CAN TESTER Abnormal finding on diagnostic imaging of other abdominal region including retroperitoneum CARBOHYDRATE ANTIGEN 19-9 Routine 05/07/2023 3:20 PM CAN TESTER Abnormal finding on diagnostic imaging of other abdominal region including retroperitoneum ALPHA FETOPROTEIN TUMOR MARKER Routine 05/07/2023 3:20 PM CAN TESTER Abnormal finding on diagnostic imaging of other abdominal region including retroperitoneum APTT Routine 05/07/2023 3:20 PM CAN TESTER Abnormal finding on diagnostic imaging of other abdominal region including retroperitoneum COMPLETE BLOOD COUNT W/ DIFFERENTIAL Routine 05/07/2023 3:20 PM CAN TESTER Abnormal finding on diagnostic imaging of other abdominal region including retroperitoneum PROTHROMBIN TIME Routine 05/07/2023 3:20 PM CAN TESTER Abnormal finding on diagnostic imaging of other abdominal region including retroperitoneum LACTATE DEHYDROGENASE Routine 05/07/2023 3:20 PM CAN TESTER Abnormal finding on diagnostic imaging of other abdominal region including retroperitoneum MAGNESIUM LEVEL Routine 05/07/2023 3:20 PM CAN TESTER Abnormal finding on diagnostic imaging of other abdominal region including retroperitoneum PHOSPHORUS LEVEL Routine 05/07/2023 3:20 PM CAN TESTER Abnormal finding on diagnostic imaging of other abdominal region including retroperitoneum CALCIUM LEVEL Routine 05/07/2023 3:20 PM CAN TESTER Abnormal finding on diagnostic imaging of other abdominal region including retroperitoneum GLUCOSE, RANDOM Routine 05/07/2023 3:20 PM CAN TESTER Abnormal finding on diagnostic imaging of other abdominal region including retroperitoneum CREATININE Routine 05/07/2023 3:20 PM CAN TESTER Abnormal finding on diagnostic imaging of other abdominal region including retroperitoneum BLOOD UREA NITROGEN Routine 05/07/2023 3 :20 PM CAN TESTER Abnormal finding on diagnostic imaging of other abdominal region including retroperitoneum ELECTROLYTE PANEL Routine 05/07/2023 3:2 0 PM CAN TESTER Abnormal finding on diagnostic imaging of other abdominal region including retroperitoneum CT CHEST ABDOMEN PELVIS W WO CONTRAST Routine 05/07/2023 2:26 PM CAN TESTER Abnormal finding on diagnostic imaging of other abdominal region including retroperitoneum Lymphadenopathy POC CREATININE Routine 05/07/2023 1:56 PM CAN TESTER EKG, 12-LEAD (SCHEDULED) Routine 05/07/2023 Lymphadenopathy Abnormal finding on diagnostic imaging of other abdominal region including retroperitoneum after 02/28/2023 Results * PETCT F18 FDG (Fluorodeoxyglucose) with [...] radiologicfindings that are unexpected and potentially actionable. us Sandie NUÑEZ IMG PETCT ORDERABLES Final R esult * Flow Cytometry Workup - B-Cell Lymphoma (07/23/2023 9:33 AM CDT) FLOW CYTOMETRY WORKUP TESTS TO ORDER FC Lymphoma B 07/26/2023 6:33 AM CDT FLOW CYTOMETRY Bone Marrow (Iliac Crest, Left Posterior, Aspirate) Non-blood Collection / Unknown 07/23/2023 9:33 AM CDT 07/23/2023 11:04 AM CDT Cynthia Damian APRN [facility] CP BIOMARKER WORKUPS Final Result Performing Organization Address City/Va Hospital/ZIP Co de Phone Number [facility] AP LABS [place] [id number] [place] [address], FLOW CYTOMETRY [facility] Flow Cytometry Laboratory [address] [place] [address] * CG 24.5HR CULTURE (07/23/2023 9:33 AM CDT) Bone Marrow (Iliac Crest, Left Posterior, Aspirate) Non-blood Collection / Unknown 07/23/2023 9:33 AM CDT 07/23/2023 11:25 AM CDT Cynthia Damian APRN [facility] CP BIOMARKER WORKUPS Final Result Performing Organization Address City/Va Hospital/ZIP Co de Phone Number CYTOGENETICS [facility] Cytogenetics Lab [address] [place] [address] * CG 72HR CPG Culture (07/23/2023 9:33 AM CDT) Bone Marrow (Iliac Crest, Left Posterior, Aspirate) Non-blood Collection / Unknown 07/23/2023 9:33 AM CDT 07/23/2023 11:25 AM CDT Cynthia Damian APRN [facility] CP BIOMARKER WORKUPS Final Result Performing Organization Address City/Va Hospital/[facility] Co de Phone Number CYTOGENETICS [facility] Cytogenetics Lab [address] [place] [phone] * Cytogenetics Workup (07/23/2023 9:33 AM CDT) [...] CDT 07/23/2023 11:25 AM CDT Cynthia Damian LUIS [facility] CP BIOMARKER WORKUPS Final Result CYTOGENETICS [facility] Cytogenetics Lab [address] [place] [address] * Hematopathology Bone Marrow Interpretation (07/23/2023 9:33 AM CDT) Diagnosis Bone marrow, left posterior iliac crest, biopsy, clot section, aspirate smears and touch imprint: Single lymphoid aggregate in cellular bone marrow (40%) with trilineage hematopoiesis (see comment) 07/27/2023 7:24 AM T [facility] AP LABS Comment The patient has a history [...] suggested if clinically indicated. 07/27/2023 7:24 AM CDT [facility] AP LABS Microscopic Description BONE MARROW BIOPSY Quality: Adequate Cellularity: 40% Megakaryocytes: Adequate Infiltrate: Single minute lymphoid aggregate approximating bony trabeculum BONE MARROW CLOT Quality: Adequate Cellularity: 40% Megakaryocytes: Adequate Infiltrate: Single minute lymphoid aggregate BONE MARROW SMEARS Quality / cellularity: Adequate Granulocytes: Maturing Erythrocytes: Maturing Megakaryocytes: Present Lymphocytes: Not increased, small with condensed chromatin 07/27/2023 7:24 AM CDT [facility] AP LABS Gross Description B: Iliac crest, left posterior, biopsy Length: 1.1 cm Submitted in a single cassette for decalcification. DG C: Iliac crest, left posterior, clot Dimensions: 0.3 x 3.0 x 2.5 cm Specimen is entirely submitted in 1. DG 07/27/2023 7:24 AM CDT [facility] LABS Disclaimer "Some tests reported here may have been developed and performance characteristics determined by [facility] [place], [place] Pathology and Laboratory Medicine. These tests have not been specifically cleared or approved by the U.S. Food and Drug Administration. If applicable, controls were reviewed and showed appropriate reactivity." Medical necessity justification for the immunohistochemical stains that were needed in addition to the flow cytometric immunophenotypic studies for the best diagnosis possible is as follows: The flow cytometric studies are not clearly area representative of all the features requiring evaluation in this specimen. 07/27/2023 7:24 AM CDT [facility] LABS Bone Marrow (Iliac Crest, Left Posterior, Aspirate) Non-blood Collection / Unknown 07/23/2023 9:33 AM CDT 07/23/2023 10:53 AM CDT Bone marrow specimen (specimen) (Iliac Crest, Left Posterior, Biopsy) Non-blood Collection / Unknown 07/23/2023 9:33 AM CDT 07/23/2023 10:33 AM CDT Bone marrow specimen (specimen) (Iliac Crest, Left Posterior, Clot) 07/23/2023 9:33 AM CDT 07/23/2023 10:33 AM CDT us Kelsea Peraza MD LAB PATHOLOGY ORDERABLES Final Result Performing Organization Address City/State/[facility] Co de Phone Number [facility] [address] [place] [address], [place] * (ABNORMAL) Hematopathology Bone Marrow Differential (07/23/2023 9:33 AM CDT) Method Smear 07/26/2023 9:49 AM CDT [facility] Adequacy Satisfactory for evaluation 07/26/2023 9:49 AM CDT [facility] Total cells counted 500 07/26/2023 9:49 AM CDT [facility] BM Blast % 1 0 - 5 % 07/26/2023 9:49 AM CDT [facility] BM Progranulocyte % 2 2 - 8 % 07/26/2023 9:49 AM CDT [facility] BM Myelocyte % 8 5 - 20 % 07/26/2023 9:49 AM CDT [facility] BM Metamyelocyte % 11(L) 13 - 32 % 07/26/2023 9:49 AM CDT [facility] AP [facility]S BM Granulocyte % 28 7 - 30 % 07/26/19 9:49 AM CDT [facility] AP [facility] BM Eosinophil % 4 0 - 4 % 9:49 AM CDT [facility] BM Lymphocyte % 11 3 - 17 % 9:49 AM CDT [facility] BM Plasma Cell % 1 0 - 2 % 07/26/19 9:49 AM CDT [facility] BM Monocyte % 2 0 - 5 % 07/26/2023 9:49 AM CDT [facility] BM Pronormoblast % 1 1 - 8 % 07/26/2023 9:49 AM CDT [facility] AP LAB[facility] BM Normoblast % 31 7 - 32 % 9:49 AM CDT [facility] BM M:E Ratio 1.7(L) 3.0 - 4.0 07/26/2023 9:49 AM CDT [facility] Bone Marrow (Iliac Crest, Left Posterior, Aspirate) Non-blood Collection / Unknown 07/23/2023 9:33 AM CDT 07/23/2023 10:53 AM CDT Narrative [facility] - 07/26/2023 9:49 AM CDT DISCLAIMER Preliminary BM Diff may have been completed by a medical device assembler or a hematopathology fellow and is subject to change. Any pathologist updates will be included on interpretation and appear in the final result. Please use caution in evaluating your patient based on preliminary results. us Kelsea Peraza MD LAB PATHOLOGY ORDERABLES Final Result Performing Organization Address City/State/[facility] Co de Phone Number [facility] AP LABS [facility] [place] [address], * CG Chromosome Analysis Interpretation and Report [...] report includes activity performed off-site at location: [id number] 08/02/2023 12:03 PM CDT CYTOGENETICS Pathologist Signature . 08/02/2023 12:03 PM CDT CYTOGENETICS Bone Marrow (Iliac Crest, Left Posterior, Aspirate) Non-blood Collection / Unknown 07/23/2023 9:33 AM CDT 07/23/2023 11:25 AM CDT us Cynthia Damian APRN [facility] HP CYTOGENETICS (HP CG) Fi nal Result CYTOGENETICS [facility] Cytogenetics Lab [address] [place] [address] * T(14:18) IGH-BCL2 MBR qPCR Interpretation and Report (07/23/2023 9:33 AM CDT) Pathology 07/28/2023 3:33 PM CDT MOLECULAR DIAGNOSTICS IGH/BCL2 Interpretation No evidence of an IGH-BCL2 fusion involving the major breakpoint region of the BCL2 gene is detected by quantitative real-time PCR. 07/28/2023 3:33 PM T MOLECULAR DIAGNOSTICS IGH/BCL2 Methodology DNA was extracted [...] with Follicular Lymphoma.' Am J Pathol. 153.1 (1997): 63-68. Test performed on 07/28/2023 07/28/2023 3:33 PM T MOLECULAR DIAGNOSTICS IGH/BCL2 Comment This assay can be used to monitor minimal residual disease (MRD). Correlation with additional findings such as morphology, immunophenotyping and cytogenetics/FISH studies is recommended for complete evaluation. 07/28/2023 3:33 PM T MOLECULAR DIAGNOSTICS ASR DISCLAIMER This test was developed and its performance characteristics determined by the Molecular Diagnostics Laboratory (MDL) at [facility]. It has not been cleared or approved by the U.S. Food and Drug Administration (FDA). The FDA has determined that such clearance or approval is not necessary. This test is used for clinical purposes. This laboratory is certified under the Clinical Laboratory Improvement Act (CLIA) of 1988 to perform high complexity clinical laboratory testing. 07/28/2023 3:33 PM T MOLECULAR DIAGNOSTICS Pathologist Signature . 07/28/2023 3:33 PM CDT MOLECULAR DIAGNOSTICS Bone Marrow (Iliac Crest, Left Posterior, Aspirate) Non-blood Collection / Unknown 07/23/2023 9:33 AM CDT 07/23/2023 1:08 PM CDT Cynthia Sanchezeugenia SMITH [facility] MOLECULAR DIAGNOSTICS ( EVA ARIAS) Final Result MOLECULAR DIAGNOSTICS [facility] [place], [place] [facility] [place] [facility] [address] [facility] [place] [address] * FC B-Cell Lymphoma Panel Interpretation and [...] CD34, CD38, CD43, CD45, CD56, ROR1, CD200, [place], Lambda 07/27/2023 7:24 AM CDT FLOW CYTOMETRY Disclaimer Interpretive comment s are based on review by the pathologist of the results of each antibody of this specimen. This test was developed and its performance characteristics determined by [facility] Clinical Flow Cytometry Laboratory. It has not [...] 07/23/2023 11:04 AM CDT Cynthia Damian APRN [facility] HP FLOW CYTOMETRY (HP FC) Final Result FLOW CYTOMETRY [facility] [place] Flow Cytometry [facility] [address] [place] [address] * t(11;14) IGH-BCL1 Quantitative PCR Interpretation and [...] the t(11;14)(q13;q32) ." Am J Pathol. 112.4 (1999): 524-530. Test performed on 07/29/2023 07/29/2023 4:15 PM CDT MOLECULAR DIAGNOSTICS IGH/BCL1 Comment This assay can be used to monitor minimal residual disease (MRD). 07/29/2023 4:15 PM CDT MOLECULAR DIAGNOSTICS ASR DISCLAIMER This test was developed and its performance characteristics determined by the Molecular Diagnostics Laboratory (MDL) at [facility]. It has not been cleared or approved [...] 07/23/2023 1:08 PM CDT Cynthia Damian APRN [facility] MOLECULAR DIAGNOSTICS ( ) Final Result MOLECULAR DIAGNOSTICS [facility] Molecular Diagnostics Laboratory [address] [place] [address] * NE DIAGNOSTIC BONE MARROW BIOPSIES & ASPIRATIONS (07/23/2023 9:23 AM CDT) Bone Marrow Narrative Garett Núñez APRN - 07/23/2023 9:23 AM CDT Garett Núñez APRN 07/23/2023 9:39 AM Procedure: Bone Marrow Aspiration/Biopsy Date/Time: 07/23/2023 9:23 AM Provider Information: Performed by: Garett Núñez APRN Authorized by: Cynthia Damian APRN Escrow Assistant present: yes Escrow Assistant: Bethanie Welch RT quality control assessor used?: bar tender not needed Patient Diagnosis: Pre-procedure diagnosis: Follicular lymphoma Post-procedure diagnosis: unchanged Indication: Indication: evaluation of disease status and diagnosis/evaluation of hematopoietic dysfunction Anesthesia: Anesthesia: local infiltration Patient anesthetized by: advanced practice provider Local anesthetic: lidocaine 1% without epinephrine Anesthetic total (ml): 20 Sedation: Patient sedated?: patient not sedated Aspirate Site(s): Laterality: left Site location: posterior iliac crest Instrument(s) used: Citizen.VC needle Instruments placed by: advanced practice provider Biopsy Site(s): Laterality: left Site location: posterior iliac crest Instrument(s) used: Kymab needle Instruments placed by: advanced practice provider [...] labels were verified. Cynthia Damian APRN PROCEDURE/MINOR SURGICAL ORDER MARY Final Result * (ABNORMAL) .CBC (07/23/2023 7:20 AM CDT) Only the most recent of3 resultswithin the time period is included. White Blood Cell 3.9(L) 4.1 - 10.5 K/uL 07/23/2023 7:38 AM CDT [facility] Comment:This result was prev iously suppressed from the chart. Red Blood Cell 4.80 4.30 - 6.04 M/uL 07/23/2023 7:38 AM [facility] Comment:This result was prev iously suppressed from the chart. Hemoglobin 15.0 13.3 - 17.4 g/dL 07/23/2023 7:38 AM [facility] Comment:This result was prev iously suppressed from the chart. Hematocrit 43.0 39.5 - 51.8 % 07/23/2023 7:38 AM [facility] Comment:This result was prev iously suppressed from the chart. Mean Cell Volume 90 82 - 99 fL 07/23/2023 7:38 AM [facility] Comment:This result was prev iously suppressed from the chart. Mean Cell Hemoglobin 31.3 26.6 - 33.2 pg 07/23/2023 7:38 AM [facility] Comment:This result was prev iously suppressed from the chart. Mean Cell Hemoglobin Concentration 34.9 31.1 - 35.2 g/dL 07/23/2023 7:38 AM [facility] Comment:This result was prev iously suppressed from the chart. RDW-SD 42.9 37.5 - 49.7 fL 07/23/2023 7:38 AM [facility] Comment:This result was prev iously suppressed from the chart. Red Cell Diameter Width 13.1 11.6 - 15.5 % 07/23/2023 7:38 AM [facility] Comment:This result was prev iously suppressed from the chart. Platelet 58(L) 160 - 397 K/uL 07/23/2023 7:38 AM [facility] Comment:This result was prev iously suppressed from the chart. Mean Platelet Volume 11.2 9.1 - 12.6 fL 07/23/2023 7:38 AM [facility] Comment:This result was prev iously suppressed from the chart. INRBC 0.0 0.0 - 0.1 /100 WBC 07/23/2023 7:38 AM [facility] Comment: The INRBC (instrument NRBC) [...] 43.2 - 72.7 % 07/23/2023 7:38 AM [facility] Comment:This result was prev iously suppressed from the chart. Lymphocyte % 11.8(L) 16.8 - 46.2 % 07/23/2023 7:38 AM [facility] Comment:This result was prev iously suppressed from the chart. Monocyte % 11.0 5.1 - 12.5 % 07/23/2023 7:38 AM [facility] Comment:This result was prev iously suppressed from the chart. Eosinophil % 7.2(H) 0.4 - 6.3 % 07/23/2023 7:38 AM [facility] Comment:This result was prev iously suppressed from the chart. Basophil % 0.5 0.2 - 1.4 % 07/23/2023 7:38 AM [facility] Comment:This result was prev iously suppressed from the chart. IGRE % 0.0(L) 0.1 - 1.5 % 07/23/2023 7:38 AM [facility] Comment: The IGRE% includes Metamyelocytes, Myelocytes and Promyelocytes. This result was previously suppressed from the chart. Neutrophil Abs 2.72 1.95 - 7.25 K/uL 07/23/2023 7:38 AM [facility] Comment:This result was prev iously suppressed from the chart. Lymphocyte Abs 0.46(L) 1.01 - 3.24 K/uL 07/23/2023 7:38 AM [facility] Comment:This result was prev iously suppressed from the chart. Monocyte Abs 0.43 0.24 - 0.85 K/uL 07/23/2023 7:38 AM [facility] Comment:This result was prev iously suppressed from the chart. Eosinophil Abs 0.28 0.02 - 0.50 K/uL 07/23/2023 7:38 AM [facility] Comment:This result was prev iously suppressed from the chart. Basophil Abs 0.02 0.02 - 0.09 K/uL 07/23/2023 7:38 AM CDT [facility] Comment:This result was prev iously suppressed from the chart. IG Abs 0.00(L) 0.01 - 0.12 K/uL 07/23/2023 7:38 AM CDT [facility] Comment:This result was prev iously suppressed from the chart. Blood Peripheral blood specimen / Unknown Venipuncture / Unknown 07/23/2023 7:20 AM CDT 07/23/2023 7:21 AM CDT Nadege Parker MICROBIOLOGY ANALYST LAB BLOOD ORDERABLES Final R esult [facility] Unless otherwise noted, all lab tests performed by: Division of Pathology and Laboratory Medicine [address] [place] [phone] * Peripheral Smear for Bone Marrow (07/23/2023 7:20 AM CDT) Blood Peripheral blood specimen / Unknown Venipuncture / Unknown 07/23/2023 7:20 AM CDT 07/23/2023 7:21 AM CDT Cynthia Damian MICROBIOLOGY ANALYST LAB BLOOD ORDERABLES Final Res ult [facility] Unless otherwise noted, all lab tests performed by: Division of Pathology and Laboratory Medicine [address] [place] [phone] * Serum Protein Electrophoresis (07/09/2023 4:04 PM CDT) Albumin 4.4 3.6 - 5.4 gm/dL 07/12/2023 4:59 PM CDT [facility] Alpha 1 Globulin 0.2 0.2 - 0.4 gm/dL 07/12/2023 4:59 PM CDT [facility] Alpha 2 Globulin 0.7 0.5 - 1.0 gm/dL 07/12/2023 4:59 PM CDT [facility] Beta Globulin 0.8 0.5 - 1.1 gm/dL 07/12/2023 4:59 PM CDT [facility] Gamma Globulin 1.6 0.7 - 1.6 gm/dL 07/12/2023 4:59 PM CDT [facility] SPE Path Interp The serum protein electrophoretic pattern does not show definite evidence of a M-protein peak. If a paraproteinemia is suspected clinically, serum free light chain studies, serum protein NAVARRO studies, serum immunoglobulin quantitation and urine Bence-Rich[place] protein studies are recommended. 07/12/2023 4:59 PM CDT [facility] Pathologist Signature . 07/12/2023 4:59 PM CDT [facility] Total Protein 7.8 6.4 - 8.3 gm/dL 07/12/2023 4:59 PM CDT [facility] Blood Peripheral blood specimen / Unknown Venipuncture / Unknown 07/09/2023 4:04 PM CDT 07/09/2023 4:17 PM CDT us Sandie NUÑEZ LAB BLOOD ORDERABLES Final R esult [facility] Unless otherwise noted, all lab tests performed by: Division of Pathology and Laboratory Medicine [address] [place] [phone] * Glucose, Random (07/09/2023 4:04 PM CDT) Only the most recent of2 resultswithin the time period is included. Glucose Random 96 70 - 199 mg/dL 07/09/2023 5:20 PM CDT [facility] Blood Peripheral blood specimen / Unknown Venipuncture / Unknown 07/09/2023 4:04 PM CDT 07/09/2023 4:17 PM CDT Narrative [facility] - 07/09/2023 5:20 PM CDT Effective 10/09/15, the glucose reference intervals have been updated based on [place] [employer] guidelines (Standards of Medical Care in Diabetes 2016. Diabetes Care 2016; 39: S13-S22). Fasting blood glucose: Normal: 70-99 mg/dL Impaired fasting glucose (increased risk for diabetes or pre-diabetes): 100-125 mg/dL Diabetes mellitus: >/=126 mg/dL Random blood glucose: Normal: 70-199 mg/dL Note: Random glucose >100 mg/dL is associated with increased risk for diabetes Sandie NUÑEZ LAB BLOOD ORDERABLES Final R esult [facility] Unless otherwise noted, all lab tests performed by: Division of Pathology and Laboratory Medicine [address] [place] [phone] * HIV 1/2 Antigen/Antibody, Fourth Gen W/RFL (07/09/2023 4:04 PM CDT) HIV Ag/Ab, 4TH Gen NON-REACT PEBBLES NON-REACT PEBBLES 07/10/2023 4:56 AM CDT [facility] ([facility]) Comment: HIV-1 antigen and HIV-1/HIV-2 antibodies were [...] purpose. For additional information please refer to http://education.Ideagen.[employer]/faq/VYO368 (This link is being provided for informational/ educational purposes only.) The performance of this assay has not been clinically validated in patients less than 2 years old. Blood Peripheral blood specimen / Unknown Venipuncture / Unknown 07/09/2023 4:04 PM CDT 07/09/2023 4:17 PM CDT Narrative [facility] - 07/10/2023 4:56 AM CDT Performing Organization Information: RUDY [facility] [address] [place] [address] Jennifer Baker Sandie NUÑEZ LAB BLOOD ORDERABLES Final R esult [facility] (BEAK[facility]) * (ABNORMAL) Fractionated Bilirubin (07/09/2023 4:04 PM CDT) [facility] Bilirubin Direct 0.4(H) 0.0 - 0.3 mg/dL 07/09/2023 5:20 PM CDT [facility] Comment:Indocyanine Green (I CG) may cause falsely elevated bilirubin results. Total and direct bilirubin must not be measured from samples containing indocyanine green. Bilirubin Indirect 1.3(H) 0.0 - 0.9 mg/dL 07/09/2023 5:20 PM CDT [facility] Bilirubin Total 1.7(H) 0.0 - 1.2 mg/dL 07/09/2023 5:20 PM CDT [facility] Comment:Indocyanine Green (I CG) may cause falsely elevated bilirubin results. Total and direct bilirubin must not be measured from samples containing indocyanine green. False elevation of total bilirubin can be seen in patients with IgG concentrations above 28 g/L. Blood Peripheral blood specimen / Unknown Venipuncture / Unknown 07/09/2023 4:04 PM CDT 07/09/2023 4:17 PM CDT Sandie NUÑEZ LAB BLOOD ORDERABLES Final R esult [facility] Unless otherwise noted, all lab tests performed by: Division of Pathology and Laboratory Medicine [address] [place] [phone] * (ABNORMAL) Hepatitis C Virus Ab (07/09/2023 4:04 PM CDT) Only the most recent of2 resultswithin the time period is included. [facility] HCVAb. Reactive(A ) Non Reactive 07/11/2023 10:22 AM CDT [facility] Blood Peripheral blood specimen / Unknown Venipuncture / Unknown 07/09/2023 4:04 PM CDT 07/09/2023 4:17 PM CDT Narrative [facility] - 07/11/2023 10:22 AM CDT Antibody detection in the immunocompromised and immunosuppressed population may be delayed or absent entirely. Therefore serial testing, correlation with other clinical findings, and supplemental testing (if available) should be taken into consideration when interpreting the results. Sandie NUÑEZ LAB BLOOD ORDERABLES Final R esult Performing Organization Address [facility] Co de Phone Number [facility] Unless otherwise noted, all lab tests performed by: Division of Pathology and Laboratory Medicine [address] [place] [phone] * Hepatitis B Total Ig Core Ab (SCREENING) (anti-HBc total Ig; HBcAb total Ig) (07/09/2023 4:04 PM CDT) Only the most recent of2 resultswithin the time period is included. [facility] HBcAb. Non Reactive Non Reactive 07/11/2023 10:20 AM CDT [facility] Blood Peripheral blood specimen / Unknown Venipuncture / Unknown 07/09/2023 4:04 PM CDT 07/09/2023 4:17 PM CDT Sandie NUÑEZ LAB BLOOD ORDERABLES Final R esult Performing Organization Address [facility] de Phone Number [facility] Unless otherwise noted, all lab tests performed by: Division of Pathology and Laboratory Medicine [address] [place] [phone] * Confirm ABORh (07/09/2023 4:04 PM CDT) ABORh Confirm A NEG 07/09/2023 4:01 PM CDT [facility] Blood Peripheral blood specimen / Unknown Venipuncture / Unknown 07/09/2023 4:04 PM CDT 07/09/2023 4:17 PM CDT Sandie NUÑEZ BLOOD BANK TEST ORDERABLES F inal Result Performing Organization Address City/[facility]/ZIP Co de Phone Number [facility] [id number] [place] [address] * aPTT (07/09/2023 4:04 PM CDT) Only the most recent of2 resultswithin the time period is included. Pathologist [facility] Activated PTT 25.9 24.1 - 35.5 second(s) 07/09/2023 5:06 PM CDT [facility] Blood Peripheral blood specimen / Unknown Venipuncture / Unknown 07/09/2023 4:04 PM CDT 07/09/2023 4:16 PM CDT Sandie NUÑEZ LAB BLOOD ORDERABLES Final R esult Performing Organization Address [facility] Co de Phone Number [facility] Unless otherwise noted, all lab tests performed by: Division of Pathology and Laboratory Medicine [address] [place] [phone] * Vitamin D 25OH (07/09/2023 4:04 PM CDT) [facility] Vitamin D 25 OH 30 30 - 100 ng/mL 07/09/2023 5:20 PM CDT [facility] Blood Peripheral blood specimen / Unknown Venipuncture / Unknown 07/09/2023 4:04 PM CDT 07/09/2023 4:17 PM CDT Narrative [facility] - 07/09/2023 5:20 PM CDT Reference Range: Deficiency: <=20 ng/mL Insufficiency: 21-29 ng/mL Sufficiency: 30-100 ng/mL Potential toxicity: >100 ng/mL Sandie NUÑEZ LAB BLOOD ORDERABLES Final R esult [facility] Unless otherwise noted, all lab tests performed by: Division of Pathology and Laboratory Medicine [address] [place] [phone] * Hepatitis B Surface Antibody (07/09/2023 4:04 PM CDT) Only the most recent of2 resultswithin the time period is included. Pathologist [facility] HBsAb Non Reactive 07/11/2023 10:22 AM CDT [facility] Blood Peripheral blood specimen / Unknown Venipuncture / Unknown 07/09/2023 4:04 PM CDT 07/09/2023 4:17 PM CDT Narrative [facility] - 07/11/2023 10:22 AM CDT Vaccinated individual: Reactive Unvaccinated individual: Non-Reactive Sandie NUÑEZ LAB BLOOD ORDERABLES Final R esult Performing Organization Address City/[facility]/ZIP Co de Phone Number [facility] Unless otherwise noted, all lab tests performed by: Division of Pathology and Laboratory Medicine [address] [place] [phone] * Hepatitis B Surface Ag (07/09/2023 4:04 PM CDT) Only the most recent of2 resultswithin the time period is included. [facility] HBsAg. Non Reactive Non Reactive 07/11/2023 10:21 AM CDT [facility] Blood Peripheral blood specimen / Unknown Venipuncture / Unknown 07/09/2023 4:04 PM CDT 07/09/2023 4:17 PM CDT Sandie NUÑEZ LAB BLOOD ORDERABLES Final R esult Performing Organization Address City/[facility]/ZIP Co de Phone Number [facility] Unless otherwise noted, all lab tests performed by: Division of Pathology and Laboratory Medicine [address] [place] [phone] * (ABNORMAL) Prothrombin Time (07/09/2023 4:04 PM CDT) Only the most recent of3 resultswithin the time period is included. [facility] Prothrombin Time 14.9(H) 11.9 - 14.5 second(s) 07/09/2023 5:06 PM CDT [facility] International Normalization Ratio 1.17(H) 0.87 - 1.12 07/09/2023 5:06 PM CDT [facility] Blood Peripheral blood specimen / Unknown Venipuncture / Unknown 07/09/2023 4:04 PM CDT 07/09/2023 4:16 PM CDT Sandie NUÑEZ LAB BLOOD ORDERABLES Final R esult [facility] Unless otherwise noted, all lab tests performed by: Division of Pathology and Laboratory Medicine [address] [place] [phone] * Type and Screen (07/09/2023 4:04 PM CDT) ABORh A NEG 07/09/2023 3:57 PM CDT [facility] ABSC Negative 07/09/2023 3:57 PM CDT [facility] Clot Expiration 07/12/2023 23:59 07/09/2023 3:57 PM CDT [facility] Historical Record Check No History 07/09/2023 3:57 PM CDT [facility] Blood Peripheral blood specimen / Unknown Venipuncture / Unknown 07/09/2023 4:04 PM CDT 07/09/2023 4:17 PM CDT Sandie NUÑEZ BLOOD BANK TEST ORDERABLES F inal Result [facility] Transfusion Services [address] [place] [address] [id number] [place] [address] * Uric Acid (07/09/2023 4:04 PM CDT) Uric Acid 5.3 3.4 - 7.0 mg/dL 07/09/2023 5:20 PM CDT [facility] Blood Peripheral blood specimen / Unknown Venipuncture / Unknown 07/09/2023 4:04 PM CDT 07/09/2023 4:17 PM CDT Sandie NUÑEZ LAB BLOOD ORDERABLES Final R esult [facility] Unless otherwise noted, all lab tests performed by: Division of Pathology and Laboratory Medicine [address] [place] [phone] * BUN (07/09/2023 4:04 PM CDT) Only the most recent of2 resultswithin the time period is included. BUN 16 6 - 23 mg/dL 07/09/2023 5:20 PM CDT [facility] Blood Peripheral blood specimen / Unknown Venipuncture / Unknown 07/09/2023 4:04 PM CDT 07/09/2023 4:17 PM CDT Sandie NUÑEZ LAB BLOOD ORDERABLES Final R esult Performing Organization Address [facility]/ZIP Co de Phone Number [facility] Unless otherwise noted, all lab tests performed by: Division of Pathology and Laboratory Medicine [address] [place] [phone] * Alanine Aminotransferase (07/09/2023 4:04 PM CDT) ALT 31 <=41 U/L 07/09/2023 5:2 0 PM CDT [facility] Blood Peripheral blood specimen / Unknown Venipuncture / Unknown 07/09/2023 4:04 PM CDT 07/09/2023 4:17 PM CDT Sandie NUÑEZ LAB BLOOD ORDERABLES Final R esult [facility] Unless otherwise noted, all lab tests performed by: Division of Pathology and Laboratory Medicine [address] [place] [phone] * Aspartate Aminotransferase (07/09/2023 4:04 PM CDT) AST 26 <=40 U/L 07/09/2023 5:2 0 PM CDT [facility] Blood Peripheral blood specimen / Unknown Venipuncture / Unknown 07/09/2023 4:04 PM CDT 07/09/2023 4:17 PM CDT Sandie NUÑEZ LAB BLOOD ORDERABLES Final R esult [facility] Unless otherwise noted, all lab tests performed by: Division of Pathology and Laboratory Medicine [address] [place] [phone] * TSH (07/09/2023 4:04 PM CDT) Pathologist [facility] Thyroid Stimulating Hormone 2.88 0.27 - 4.20 mcunit/mL 07/09/2023 5:20 PM CDT [facility] Blood Peripheral blood specimen / Unknown Venipuncture / Unknown 07/09/2023 4:04 PM CDT 07/09/2023 4:17 PM CDT Sandie NUÑEZ LAB BLOOD ORDERABLES Final R esult [facility] Unless otherwise noted, all lab tests performed by: Division of Pathology and Laboratory Medicine [address] [place] [phone] * Free T4 (07/09/2023 4:04 PM CDT) [facility] T4 (Thyroxine) Free 1.23 0.93 - 1.70 ng/dL 07/09/2023 5:20 PM CDT [facility] Blood Peripheral blood specimen / Unknown Venipuncture / Unknown 07/09/2023 4:04 PM CDT 07/09/2023 4:17 PM CDT Sandie NUÑEZ LAB BLOOD ORDERABLES Final R esult [facility] Unless otherwise noted, all lab tests performed by: Division of Pathology and Laboratory Medicine [address] [place] [address] [id number] * Total Protein (07/09/2023 4:04 PM CDT) Tot Protein 7.8 6.4 - 8.3 gm/dL 07/09/2023 5:20 PM CDT [facility] Blood Peripheral blood specimen / Unknown Venipuncture / Unknown 07/09/2023 4:04 PM CDT 07/09/2023 4:17 PM CDT Narrative [facility] - 07/09/2023 5:20 PM CDT Reference range established based on adult population Sandie NUÑEZ LAB BLOOD ORDERABLES Final R esult [facility] Unless otherwise noted, all lab tests performed by: Division of Pathology and Laboratory Medicine [address] [place] [address] [id number] * Phosphorus Level (07/09/2023 4:04 PM CDT) Only the most recent of2 resultswithin the time period is included. Pathologist [facility] Phosphorus Level 3.8 2.5 - 4.5 mg/dL 07/09/2023 5:20 PM CDT [facility] Blood Peripheral blood specimen / Unknown Venipuncture / Unknown 07/09/2023 4:04 PM CDT 07/09/2023 4:17 PM CDT Sandie NUÑEZ LAB BLOOD ORDERABLES Final R esult [facility] Unless otherwise noted, all lab tests performed by: Division of Pathology and Laboratory Medicine [address] [place] [address] [phone] * Alkaline Phosphatase (07/09/2023 4:04 PM CDT) Alkaline Phosphatase 82 40 - 129 U/L 07/09/2023 5:20 PM CDT [facility] Blood Peripheral blood specimen / Unknown Venipuncture / Unknown 07/09/2023 4:04 PM CDT 07/09/2023 4:17 PM CDT Sandie NUÑEZ LAB BLOOD ORDERABLES Final R esult [facility] Unless otherwise noted, all lab tests performed by: Division of Pathology and Laboratory Medicine [address] [place] [address] [id number] * Magnesium Level (07/09/2023 4:04 PM CDT) Only the most recent of2 resultswithin the time period is included. Magnesium Level 2.5 1.6 - 2.6 mg/dL 07/09/2023 5:20 PM CDT [facility] Blood Peripheral blood specimen / Unknown Venipuncture / Unknown 07/09/2023 4:04 PM CDT 07/09/2023 4:17 PM CDT Sandie NUÑEZ LAB BLOOD ORDERABLES Final R esult Performing Organization Address [facility] Co de Phone Number [facility] Unless otherwise noted, all lab tests performed by: Division of Pathology and Laboratory Medicine [address] [place] [address] [id number] * LDH (07/09/2023 4:04 PM CDT) Only the most recent of2 resultswithin the time period is included. LDH 193 135 - 225 U/L 07/09/2023 5:02 PM CDT [facility] Blood Peripheral blood specimen / Unknown Venipuncture / Unknown 07/09/2023 4:04 PM CDT 07/09/2023 4:17 PM CDT Narrative [facility] - 07/09/2023 5:02 PM CDT Results greater than 1651 U/L may not be reliable due to matrix effect with extended dilution as it exceeds the supervisor paint department's recommended limit. Caution should be exercised when interpreting such values and done in conjunction with clinical context. Sandie NUÑEZ LAB BLOOD ORDERABLES Final R esult [facility] Unless otherwise noted, all lab tests performed by: Division of Pathology and Laboratory Medicine [address] [place] [address] [phone] * IgA (07/09/2023 4:04 PM CDT) IgA 341.0 85.0 - 499.0 mg/dL 07/11/2023 10:45 AM CDT [facility] Blood Peripheral blood specimen / Unknown Venipuncture / Unknown 07/09/2023 4:04 PM CDT 07/09/2023 4:17 PM CDT Sandie NUÑEZ LAB BLOOD ORDERABLES Final R esult [facility] Unless otherwise noted, all lab tests performed by: Division of Pathology and Laboratory Medicine [address] [place] [address] [phone] * IgM (07/09/2023 4:04 PM CDT) Pathologist [facility] IgM 59.0 35.0 - 242.0 mg/dL 07/11/2023 10:45 AM CDT [facility] Blood Peripheral blood specimen / Unknown Venipuncture / Unknown 07/09/2023 4:04 PM CDT 07/09/2023 4:17 PM CDT Sandie NUÑEZ LAB BLOOD ORDERABLES Final R esult [facility] Unless otherwise noted, all lab tests performed by: Division of Pathology and Laboratory Medicine [address] [place] [address] [phone] * IgG (07/09/2023 4:04 PM CDT) IgG 1,586.0 610.0 - 1,616.0 mg/dL 07/11/2023 10:45 AM CDT [facility] Blood Peripheral blood specimen / Unknown Venipuncture / Unknown 07/09/2023 4:04 PM CDT 07/09/2023 4:17 PM CDT us Sandie NUÑEZ LAB BLOOD ORDERABLES Final R esult [facility] Unless otherwise noted, all lab tests performed by: Division of Pathology and Laboratory Medicine [address] [place] [id number] * Creatinine (07/09/2023 4:04 PM CDT) Only the most recent of2 resultswithin the time period is included. Creatinine 0.81 0.67 - 1.17 mg/dL 07/09/2023 5:20 PM CDT [facility] eGFR 98 >=60 mL/min/1.7 3 sq. m 07/09/2023 5:20 PM CDT [facility] Comment: The eGFRcr is calculated with the [...] PM CDT Sandie NUÑEZ LAB BLOOD ORDERABLES Final R esult [facility] Unless otherwise noted, all lab tests performed by: Division of Pathology and Laboratory Medicine [address] [place] [address] [phone] * Calcium Level (07/09/2023 4:04 PM CDT) Only the most recent of2 resultswithin the time period is included. Pathologist [facility] Calcium Level Total 9.0 8.2 - 10.2 mg/dL 07/09/2023 5:02 PM CDT [facility] Blood Peripheral blood specimen / Unknown Venipuncture / Unknown 07/09/2023 4:04 PM CDT 07/09/2023 4:17 PM CDT Sandie NUÑEZ LAB BLOOD ORDERABLES Final R esult [facility] Unless otherwise noted, all lab tests performed by: Division of Pathology and Laboratory Medicine [address] [place] [address] [phone] * Beta 2 Microglobulin (07/09/2023 4:04 PM CDT) [facility] Beta 2 Microglobulin 2.20 0.80 - 2.30 mg/L 07/11/2023 10:45 AM CDT [facility] Blood Peripheral blood specimen / Unknown Venipuncture / Unknown 07/09/2023 4:04 PM CDT 07/09/2023 4:17 PM CDT Narrative [facility] - 07/11/2023 10:45 AM CDT This test is measured by turbidimetric methodology on The [employer] Optilite analyzer. Results obtained in different methods are not interchangeable. Sandie NUÑEZ LAB BLOOD ORDERABLES Final R esult [facility] Unless otherwise noted, all lab tests performed by: Division of Pathology and Laboratory Medicine [address] [place] [address] [id number] * Albumin Level (07/09/2023 4:04 PM CDT) [facility] Albumin Level 4.6 3.5 - 5.2 gm/dL 07/09/2023 5:20 PM CDT [facility] Blood Peripheral blood specimen / Unknown Venipuncture / Unknown 07/09/2023 4:04 PM CDT 07/09/2023 4:17 PM CDT Sandie NUÑEZ LAB BLOOD ORDERABLES Final R esult [facility] Unless otherwise noted, all lab tests performed by: Division of Pathology and Laboratory Medicine [address] [place] [address] [phone] * (ABNORMAL) Electrolyte Panel (07/09/2023 4:04 PM CDT) Only the most recent of2 resultswithin the time period is included. Sodium Level 141 136 - 145 mmol/L 07/09/2023 5:20 PM CDT [facility] Potassium Level 4.0 3.4 - 4.5 mmol/L 07/09/2023 5:20 PM CDT [facility] Chloride 104 98 - 107 mmol/L 07/09/2023 5:20 PM CDT [facility] CO2 32(H) 22 - 29 mmol/L 07/09/2023 5:20 PM CDT [facility] Anion Gap 5 4 - 14 mmol/L 07/09/2023 5:20 PM CDT [facility] Blood Peripheral blood specimen / Unknown Venipuncture / Unknown 07/09/2023 4:04 PM CDT 07/09/2023 4:17 PM CDT Sandie NUÑEZ LAB BLOOD ORDERABLES Final R esult [facility] Unless otherwise noted, all lab tests performed by: Division of Pathology and Laboratory Medicine [address] [place] [address] [phone] * Echocardiogram 2D Complete (07/09/2023 2:04 PM [...] 2.3 cm Doppler Measurements MV E max alonzo: 87.9 cm/sec MV V2 max: 77.6 cm/sec MV A max alonzo: 68.2 cm/sec MV max P.4 mmHg MV [...] cm2 SV(LVOT): 64.7 ml Med Peak E' Alonzo: 8.8 cm/sec Lat Peak E' Alonzo: 12.6 cm/sec RAP systole: 3.0 mmHg RV [...] 2.3 cm Doppler Measurements MV E max alonzo: 87.9 cm/secMV V2 max: 77.6 cm/sec MV A max alonzo: 68.2 cm/secMV max P.4 mmHg MV E/A: [...] 2.5 cm2 SV(LVOT): 64.7 mlMed Peak E' Alonzo: 8.8 cm/sec Lat Peak E' Alonzo: 12.6 cm/secRAP systole: 3.0 mmHg RV S Vel_phl: 15.0 cm/secAVA Index (I,D): 1.2 CUBA Index (V,D): 1.1Dimensionless Index: 0.68 E/e' (avg): 8.2E/e' (lat): 7.0 E/e' (sept): 9.9 us Sandie NUÑEZ CV ECHO ORDERABLES Final Res ult ISCV * IR CT GUIDED BIOPSY ABDOMINAL NON-ORGAN 60 (06/18/2023 3:11 PM CDT) Anatomical Region Laterality Modality Abdomen/Pelvis Computed Tomogra phy Narrative 06/18/2023 3:34 PM CDT Table formatting from the original result was not included. Date of Procedure: 06/18/23 Attending Physician: Neela Hinds MD Escrow Assistant: None Pre Procedure Diagnosis: Lymphadenopathy Post Procedure [...] Plan: No follow-up with Interventional Radiology required. us Lizzy Brady MICROBIOLOGY ANALYST IMG IR ORDERABLES Final Re sult * Pathology Biopsy Interpretation (06/18/2023 2:52 PM CDT) Submitted Clinical History Lymphadenopathy [R59.1] 06/28/2023 3:06 PM CDT [facility] Diagnosis Abdominal mass, midline, core biopsy: FOLLICULAR LYMPHOMA (GRADE 2), FOCAL AREAS WITH INCREASED LARGE CELLS 06/28/2023 3:06 PM CDT [facility] Comment Histologic sections show fragments [...] diagnosis and interpretation. 06/28/2023 3:06 PM CDT [facility] Gross Description A: Abdomen, midline, biopsy - abdominal/mesenter ic: Four mack-yellow core biopsies ranging from 0.3 to 1.5 cm in length with a diameter of less than 0.1 cm, entirely submitted in A1. GM 06/28/2023 3:06 PM CDT [facility] Collision Estimator(s) Dr. Sage Pedro 06/28/2023 3:06 PM CDT [facility] Biomarker Block(s) A1 06/28/2023 3:06 PM CDT [facility] Disclaimer "Some tests reported here may have been developed and performance characteristics determined by [facility] [place] [place] Pathology and Laboratory Medicine. These tests have not been specifically cleared or approved by the U.S. Food and Drug Administration. If applicable, controls were reviewed and showed appropriate reactivity." 06/28/2023 3:06 PM CDT [facility] Tissue (Abdomen, Midline) 06/18/2023 2:52 PM CDT 06/21/2023 9:47 AM CDT Lizzy Brady APRN LAB PATHOLOGY ORDERABLES F inal Result [facility] [address] [place] [address], * (ABNORMAL) [facility] CP PLATELET COUNT (06/18/2023 12:34 PM CDT) [facility] Platelet 58(L) 160 - 397 K/uL 06/18/2023 1:24 PM CDT [facility] Mean Platelet Volume 11.5 9.1 - 12.6 fL 06/18/2023 1:24 PM CDT [facility] Blood Peripheral blood specimen / Unknown Venipuncture / Unknown 06/18/2023 12:34 PM CDT 06/18/2023 12:37 PM CDT Zoila Rogers PA-C LAB BLOOD ORDERABLES Final Result [facility] [address] [facility] [place] [address] * (ABNORMAL) Basic Metabolic Panel- Total Calcium (06/18/2023 12:34 PM CDT) [facility] eGFR 89 >=60 mL/min/1.7 3 sq. m 06/18/2023 1:[address] [facility] Comment: The eGFRcr is calculated with [...] 8.2 - 10.2 mg/dL 06/18/2023 1:[address] [facility] Sodium Level 143 136 - 145 mmol/L 06/18/2023 1:[address] [facility] Potassium Level 4.3 3.4 - 4.5 mmol/L 06/18/2023 1:[address] [facility] Chloride 105 98 - 107 mmol/L 06/18/2023 1:[address] [facility] CO2 31(H) 22 - 29 mmol/L 06/18/2023 1:[address] [facility] Anion Gap 7 4 - 14 mmol/L 06/18/2023 1:[address] [facility] Creatinine 0.95 0.67 - 1.17 mg/dL 06/18/2023 1:[address] [facility] BUN 12 6 - 23 mg/dL 06/18/2023 1:[address] [facility] Glucose Level 102(H) 70 - 99 mg/dL 06/18/2023 1:[address] [facility] Comment: Effective 10/09/15, the glucose reference intervals have been updated based on [place] [employer] guidelines (Standards of Medical Care [...] 12:34 PM CDT 06/18/2023 12:37 PM CDT us Lynette Bradford PA-C LAB BLOOD ORDERABLES Fin al Result Performing Organization Address [facility] Co de Phone Number [facility] [address] [place] [address]. [address] [place] [address] * Hepatitis A Antibody IgG (05/07/2023 3:20 PM CAN TESTER) [facility] Hepatitis A IgG Negative 11:36 AM CAN TESTER [facility] Comment: Result indicates no past exposure or immunity to hepatitis A infection. REFERENCE VALUE Unvaccinated: Negative Vaccinated: Positive Test Performed by: [facility] [place] [address] Underwriting Technician: Jb Yap M.D. Ph.D.; CLIA# [id number] Blood Peripheral blood specimen / Unknown Venipuncture / Unknown 05/07/2023 3:20 PM CAN TESTER 05/07/2023 3:23 PM CAN TESTER us Huong Foster APRN LAB BLOOD ORDERABLES Final Result Performing Organization Address [facility] Co de Phone Number [facility] PANCHOAMANDA * [place] Misc Test (05/07/2023 3:20 PM CAN TESTER) [facility] Test Result See Footnote 05/13/2023 2:15 PM CAN TESTER [facility] Comment: Test Result Flag Unit RefValue Hepatitis [...] of the listed assay was validated by [employer]. The [place] FDA has not approved or cleared this test. The results of this assay can be used for clinical diagnosis without FDA approval. [employer] is a CLIA certified, CAP accredited laboratory for performing high complexity assays such as this one. Test Performed by: [employer] [facility] [place] [address] Other (Other) 05/07/2023 3:2 0 PM CAN TESTER 05/07/2023 3:53 PM CAN TESTER Huong Foster APRN LAB BLOOD ORDERABLES Final Result [facility] * Hepatitis C Virus RNA Detect/Quant (05/07/2023 3:20 PM CAN TESTER) Pathologist [facility] HepC RNA PCR [facility] Undetected Undetected IU/mL 05/09/2023 11:36 AM CAN TESTER [facility] Comment: Result in log IU/mL is Undetected. ADDITIONAL INFORMATION The quantification range of this assay is 15 to 100,000,000 IU/mL (1.18 log to 8.00 log IU/mL). Testing was performed using the heide HCV test ([employer] Test Performed by: [facility] - [address] [address] Underwriting Technician: Jb Yap M.D. Ph.D.; CLIA# [id number] Blood Peripheral blood specimen / Unknown Venipuncture / Unknown 05/07/2023 3:20 PM CAN TESTER 05/07/2023 3:23 PM CAN TESTER Result [facility] BLOOD ORDERABLES Final Result [facility] * HBV DNA Quant (05/07/2023 3:20 PM CAN TESTER) [facility] HBV DNA [facility] Undetected Undetected IU/mL 05/10/2023 2:21 PM CAN TESTER [facility] Comment: Result in log IU/mL is Undetected. ADDITIONAL INFORMATION The quantification range of this assay is 10 to 1,000,000,000 IU/mL (1.00 log to 9.00 log IU/mL). Testing was performed using the heide HBV test ([employer] Test Performed by: [facility] [place] [address] Underwriting Technician: Jb Yap M.D. Ph.D.; CLIA# [id number] Blood Peripheral blood specimen / Unknown Venipuncture / Unknown 05/07/2023 3:20 PM CAN TESTER 05/07/2023 3:23 PM CAN TESTER Huong Foster APRN LAB BLOOD ORDERABLES Final Result [facility] * (ABNORMAL) Hepatic Function Panel (05/07/2023 3:20 PM CAN TESTER) [facility] Bilirubin Total 2.1(H) <=1.2 mg/dL 05/07/2023 4:49 PM CAN TESTER [facility] Comment:Indocyanine Green (I CG) may cause falsely elevated bilirubin results. Total and direct bilirubin must not be measured from samples containing indocyanine green. False elevation of total bilirubin can be seen in patients with IgG concentrations above 28 g/L. Bilirubin Direct 0.3 <=0.3 mg/dL 05/07/2023 4:49 PM [facility] Comment:Indocyanine Green (I CG) may cause falsely elevated bilirubin results. Total and direct bilirubin must not be measured from samples containing indocyanine green. Bilirubin Indirect 1.8(H) 0.0 - 0.9 mg/dL 05/07/2023 4:49 PM CAN TESTER [facility] Tot Protein 7.5 6.4 - 8.3 gm/dL 05/07/2023 4:49 PM CAN TESTER [facility] Alkaline Phosphatase 81 40 - 129 U/L 05/07/2023 4:49 PM [facility] Albumin Level 4.5 3.5 - 5.2 gm/dL 05/07/2023 4:49 PM [facility] AST 24 <=40 U/L 05/07/2023 4:49 PM [facility] ALT 22 <=41 U/L 05/07/2023 4:49 PM [facility] Blood Peripheral blood specimen / Unknown Venipuncture / Unknown 05/07/2023 3:20 PM CAN TESTER 05/07/2023 3:23 PM [facility] Huong Foster MICROBIOLOGY ANALYST LAB BLOOD ORDERABLES Final Result [facility] Unless otherwise noted, all lab tests performed by: Division of Pathology and Laboratory Medicine [address] [place] [phone] * Hepatitis E IgM Ab (05/07/2023 3:20 PM CAN TESTER) Pathologist [facility] HEV IgM Ab [facility] Negative Negative 05/11/2023 1:24 PM [facility] Comment: If clinical suspicion persists, submit new specimen for retesting in 1 to 2 weeks. ADDITIONAL INFORMATION This test was developed and its performance characteristics determined by [facility] in a manner consistent with CLIA requirements. This test has not been cleared or approved by the U.S. Food and Drug Administration. Test Performed by: [facility] [place] [address] Underwriting Technician: Jb Yap M.D. Ph.D.; CLIA# [id number] Blood Peripheral blood specimen / Unknown Venipuncture / Unknown 05/07/2023 3:20 PM CAN TESTER 05/07/2023 3:23 PM CAN TESTER Huong Miguel Foster APRN LAB BLOOD ORDERABLES Final Result [facility] * Hepatitis E IgG Ab (05/07/2023 3:20 PM CAN TESTER) [facility] HEV IgG Ab-[place] Negative Negative 2:49 PM CAN TESTER [facility] Comment: ADDITIONAL INFORMATION This test was developed and its performance characteristics determined by [facility] in a manner consistent with CLIA requirements. This test has not been cleared or approved by the U.S. Food and Drug Administration. Test Performed by: [facility] [place] [address] Underwriting Technician: Jb Yap M.D. Ph.D.; CLIA# [id number] Blood Peripheral blood specimen / Unknown Venipuncture / Unknown 05/07/2023 3:20 PM CAN TESTER 05/07/2023 3:23 PM CAN TESTER Huong Foster APRN LAB BLOOD ORDERABLES Final Result [facility] * Chromogranin A (05/07/2023 3:20 PM CAN TESTER) [facility] <93 ng/mL 05/08 12:40 PM CAN TESTER [facility] Comment: ADDITIONAL INFORMATION This test was developed and its performance characteristics determined by [facility] in a manner consistent with CLIA requirements. [...] a homogeneous time-resolved immunofluorescent assay manufactured by [employer] and performed on the [employer] Comp[employer] Plus. Values obtained with different assay methods or kits may be different and cannot be used interchangeably. Test results cannot be interpreted as absolute evidence for the presence or absence of malignant disease. Test Performed by: [place] [address] Underwriting Technician: Jb Yap M.D. Ph.D.; CLIA# [id number] Blood Peripheral blood specimen / Unknown Venipuncture / Unknown 05/07/2023 3:20 PM CAN TESTER 05/07/2023 3:23 PM CAN TESTER Huong Foster APRN LAB BLOOD ORDERABLES Final Result [facility] * AFP (05/07/2023 3:20 PM CAN TESTER) Alpha Fetoprotein (AFP) Tumor Marker 4.2 <=8.3 ng/mL 05/07/2023 4:28 PM CAN TESTER [facility] Blood Peripheral blood specimen / Unknown Venipuncture / Unknown 05/07/2023 3:20 PM CAN TESTER 05/07/2023 3:23 PM CAN TESTER Narrative [facility] - 05/07/2023 4:28 PM CAN TESTER Results greater than 45,875.00 ng/mL may not be reliable due to matrix effect with extended dilution as it exceeds the supervisor paint department's recommended limit. Caution should be exercised when interpreting such values and done in conjunction with clinical context. This test is measured by electrochemiluminescence immunoassay on [employer] immunoassay analyzers. Results obtained in different methods are not interchangeable. Huong De Leono MICROBIOLOGY ANALYST LAB BLOOD ORDERABLES Final Result Performing Organization Address [facility] Co de Phone Number [facility] Unless otherwise noted, all lab tests performed by: Division of Pathology and Laboratory Medicine [address] [place] [phone] * Hep A IgM Ab (05/07/2023 3:20 PM CAN TESTER) Pathologist [facility] Hep A IgM-[place] Negative Negative 05/08/2023 11:36 AM CAN TESTER [facility] Comment: Result does not exclude the possibility of exposure to hepatitis A virus. Antibody level during early infection stage may be below the limit of detection of the assay. Test Performed by: [address] [address] Underwriting Technician: Jb Yap M.D. Ph.D.; CLIA# [id number] Blood Peripheral blood specimen / Unknown Venipuncture / Unknown 05/07/2023 3:20 PM CAN TESTER 05/07/2023 3:23 PM CAN TESTER Huong Miguel Foster APRN LAB BLOOD ORDERABLES Final Result Performing Organization Address [facility] de Phone Number [facility] * CA 19-9 (05/07/2023 3:20 PM CAN TESTER) CA 19-9 10.7 <=35.0 U/mL 05/07/2023 4:28 PM CAN TESTER [facility] Blood Peripheral blood specimen / Unknown Venipuncture / Unknown 05/07/2023 3:20 PM CAN TESTER 05/07/2023 3:23 PM CAN TESTER Narrative [facility] - 05/07/2023 4:28 PM CAN TESTER Results greater than 9500 U/mL may not be reliable due to matrix effect with extended dilution as it exceeds the supervisor paint department's recommended limit. Caution should be exercised when interpreting such values and done in conjunction with clinical context. This test is measured by electrochemiluminescence immunoassay on Sly Heide immunoassay analyzers. Results obtained in different methods are not interchangeable. Huong Foster APRN LAB BLOOD ORDERABLES Final Result Performing Organization Address City/Va Hospital/ZIP Co de Phone Number [facility] Unless otherwise noted, all lab tests performed by: Division of Pathology and Laboratory Medicine [address] [place] [id number] * Hepatitis D Ag (05/07/2023 3:20 PM CAN TESTER) Pathologist [facility] Scan Result See Scanned Result 05/07/2023 3:54 PM CAN TESTER [facility] Blood Peripheral blood specimen / Unknown Venipuncture / Unknown 05/07/2023 3:20 PM CAN TESTER 05/07/2023 3:23 PM CAN TESTER Narrative [facility] - 05/07/2023 3:54 PM CAN TESTER Refer to [id number] Huong Foster MICROBIOLOGY ANALYST LAB BLOOD ORDERABLES Final Result Performing Organization Address [facility]/Va Hospital/[facility] Co de Phone Number [facility] Unless otherwise noted, all lab tests performed by: Division of Pathology and Laboratory Medicine [address] [place] [id number] * Serotonin Level (05/07/2023 3:20 PM CAN TESTER) [facility] Serotonin Bld-Pérez <30 <=330 ng/mL 05/13/2023 3:03 PM CAN TESTER [facility] Comment: ADDITIONAL INFORMATION This test was developed and its performance characteristics determined by [facility] in a manner consistent with CLIA requirements. This test has not been cleared or approved by the U.S. Food and Drug Administration. Test Performed by: [facility] - [address] [address] Underwriting Technician: Jb Yap M.D. Ph.D.; CLIA# [id number] Blood Peripheral blood specimen / Unknown Venipuncture / Unknown 05/07/2023 3:20 PM CAN TESTER 05/07/2023 3:23 PM CAN TESTER Huong Rivera Cristian SMITH LAB BLOOD ORDERABLES Final Result Performing Organization Address [facility]/Va Hospital/ZIP Co de Phone Number [facility] * Prostate Specific Antigen (PSA) Screening (05/07/2023 3:20 PM CAN TESTER) Prostate Specific Antigen 0.4 0.0 - 4.0 ng/mL 05/07/2023 4:28 PM CAN TESTER [facility] PSA Indication Screening 05/07/2023 4:28 PM CAN TESTER [facility] Blood Peripheral blood specimen / Unknown Venipuncture / Unknown 05/07/2023 3:20 PM CAN TESTER 05/07/2023 3:23 PM CAN TESTER Narrative [facility] - 05/07/2023 4:28 PM CAN TESTER "Reference range established based on adult population Results greater than 4519 ng/mL may not be reliable due to matrix effect with extended dilution as it exceeds the supervisor paint department's recommended limit. Caution should be exercised when interpreting such values and done in conjunction with clinical context. Huong Foster APRN LAB BLOOD ORDERABLES Final Result Performing Organization Address City/Va Hospital/[facility] de Phone Number [facility] Unless otherwise noted, all lab tests performed by: Division of Pathology and Laboratory Medicine [address] [place] [id number] [facility] Unless otherwise noted, all lab tests performed by: Division of Pathology and Laboratory Medicine [address] [place] [phone] * CEA Ag (05/07/2023 3:20 PM CAN TESTER) Carcinoembryonic Antigen 1.5 <=3.8 ng/mL 05/07/2023 4:28 PM CAN TESTER [facility] Blood Peripheral blood specimen / Unknown Venipuncture / Unknown 05/07/2023 3:20 PM CAN TESTER 05/07/2023 3:23 PM CAN TESTER Narrative [facility] - 05/07/2023 4:28 PM CAN TESTER Reference Ranges (age 20-69 years): Non-smoker: 0.0 - 3.8 ng/mL Smoker: 0.0 - 5.5 ng/mL This test is measured by electrochemiluminescence immunoassay on Sly Heide immunoassay analyzers. Results obtained in different methods are not interchangeable. us Huong Foster LUIS LAB BLOOD ORDERABLES Final Result [facility] Unless otherwise noted, all lab tests performed by: Division of Pathology and Laboratory Medicine [facility] [place] [address] * CT Chest Abdomen Pelvis with and without Contrast (05/07/2023 2:26 PM CAN TESTER) Anatomical Region Laterality Modality Abdomen, Pelvis, Chest Computed Tomography 05/07/2023 2:44 PM CAN TESTER Impressions 05/07/2023 3:37 PM CAN TESTER Alexandra mass at the root of the small bowel mesentery, most likely lymphoma. Evidence of slight progression when compared to 02/25/2023. Small volume retroperitoneal nodes are indeterminate. Cirrhosis and portal hypertension. Small nodes in the hepatoduodenal ligament and gastrohepatic ligament are stable and most likely related to cirrhosis. Findings are stable when compared to February. ACTIONABLE ITEMS/RECOMMENDATIONS*: None. Narrative 05/07/2023 3:37 PM CAN TESTER FULL RESULT: Examination: CT CHEST ABDOMEN PELVIS [...] to February. ACTIONABLE ITEMS/RECOMMENDATIONS*: None. Lizzy Brady MICROBIOLOGY ANALYST IMG CT ORDERABLES Final Re sult * POC Creatinine (05/07/2023 1:56 PM CAN TESTER) POC Creatinine 0.8 0.6 - 1.3 mg/dL 05/07/2023 1:59 PM CAN TESTER [facility] Comment:Medications, especia lly hydroxyurea or supplements, such as ascorbate, can interfere with test results causing a falsely and significantly higher result than expected. If a problem is suspected with a patient's result, a sample should be sent to the laboratory for confirmatory testing. POC eGFR 99 >=60 mL/min/1.7 3 sq. m 05/07/2023 1:59 PM CAN TESTER [facility] Comment: The eGFRcr is calculated with the [...] criteria for CKD. Blood 05/07/2023 1:56 PM CAN TESTER 05/07/2023 1:59 PM CAN TESTER Narrative [facility] - 05/07/2023 1:59 PM CAN TESTER Method description: The i-STAT is an analyzer [...] Lizzy Brady APRN POCT ORDERABLES - DEVICE F inal Result [facility] Unless otherwise noted, all lab tests performed by: Division of Pathology and Laboratory Medicine [address] [place] [id number] * EKG, 12-Lead (Scheduled) (05/07/2023) Kelsea Peraza MD ECG ORDERABLES Final Result Performing Organization Address City/Va Hospital/ZIP Co de Phone Number ISAIAH IECG after 02/28/2023 Insurance [employer] PPO POS Care Teams Painter Helper Spray Relationship Specialty Start Date End Date Lorena Casas APRN [address] [facility] [address] [place] [address] PCP - External Referring 03/17/23 Mansi Lui MD [address] [place] [phone] [email or web address] PCP - General Internal Medicine 03/25/23 04/13/23 Kelsea Peraza MD [address] [place] [phone] [email or web address] PCP - General Internal Medicine 04/14/23 07/22/23 Hesham Masters MD [address] [place] [phone] [email or web address] PCP - General Lymphoma and Myeloma 07/23/23 Hesham Masters MD [address] [place] [phone] [email or web address] Physician Lymphoma and Myeloma 06/30/23 07/22/23 Kelsea Peraza MD [address] [place] [phone] [email or web address] Physician Internal Medicine 07/23/23
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
[2024-02-28] MEDS ORDERED: KETOROLAC 30 MG/ML INJ ONE (12:33)
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
[2024-02-28 13:42] VITALS: TEMP 98
[2024-02-28 13:43] VITALS: BP 153/99; O2SAT 97
== END 2024-02-28 13:33 | disposition home or self-care (01) ==
LOC: ER 11:25
DX: M54.2 Cervicalgia (principal); M54.50 Low back pain, unspecified; M54.9 Dorsalgia, unspecified; V49.49XA Driver injured in collision with other motor vehicles in traffic accident, initial encounter
CPT/HCPCS: 70450; 72125; 72128; 72131; 96372; 99284

== ENCOUNTER 2024-10-24 12:00 | Emergency (ER) | payer BC ==
--- OUTSIDE RECORDS SUMMARY | 2024-10-24 12:11 | XMS REPORT | Clinical Summary ---
Author Name Unknown Organization [facility] Address [address] [place] [address] Care Team Providers Care Car Varnisher Name Role Phone Lorena Casas APRN Unavailable Hesham Masters MD Primary Care Provider [phone] Kelsea Peraza MD Unavailable Allergies No known active allergies Medications Symbicort 160-4.5 mcg/actuation inhaler Inhale 2 puffs by mouth as needed. Active albuterol (VENTOLIN HFA,PROAIR HFA) 90 mcg/puff inhaler Inhale 1-2 puffs by mouth as needed. Active levoFLOXacin (LEVAQUIN) 750 mg tabletIndication s:Follicular lymphoma, NOS of intra-abdominal lymph nodes Take 1 tablet (750 mg) by mouth daily. 7 tablet 07/23/2023 Active Active Problems Patient Care Coordination No te Formatting of this note migh t be different from the original. Patient has Fridays off from work and prefers Wednesday appts as that is the only weekday he can get a ride into [place]. Problem Noted Date Diagnosed Date Follicular lymphoma, grade 2 of intra-abdominal lymph nodes 07/29/2023 Headache 02/15/2023 Vitamin D deficiency 02/15/2023 Allergic rhinitis 10/07/2021 FH: Cardiovascular disease 01/21/2021 Peripheral vascular disease 08/28/2020 Hypothyroidism 02/01/2020 Reactive airway disease 03/02/2019 Increased liver function 03/02/2019 Encounters Date Type Department Care Team Description 12/01/2023 Telephone [facility] [address] [facility] [address], 6th Floor [place] [address] Ellie Gray, RN after 10/25/2023 Surgical History Surgery Date Site/Laterality Comments LIVER [...] on file 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 Gender Identity Not on file Sexual Orientation Not on file Obstetrics History Plan of Treatment Health Maintenance Due Date Last Done Comments COVID-19 Vaccine (#1) 07/25/1965 Pneumococcal Vaccine: 50+ Years (1 of 2 - PCV) 978 Influenza Vaccine (#1) 2024 Insurance [facility] P[facility] POS [facility] P[facility] POS Care Teams Car Varnisher Relationship Specialty Start Date End Date Lorena Casas APRN [address] [facility] [address] [place] [address] PCP - External Referring 03/17/23 Hesham Masters MD [address] [place] [id number] [email or web address] PCP - General Lymphoma and Myeloma 07/23/23 Kelsea Peraza MD [facility] [place] [address] [email or web address] Physician Internal Medicine 07/23/23
[2024-10-24] MEDS ORDERED: NA CHLORIDE 0.9% 1,000 ML ONE (12:50)
[2024-10-24 13:07] LABS: Absolute Lymphocytes (CBC) 0.6 K/uL (0.7-4.9); Hematocrit 23.4 % (39.6-49.0); Hemoglobin 7.8 g/dL (13.6-17.9); MCH 29.8 pg (27.0-35.0); MCHC 33.3 g/dL (32.0-36.0); MCV 89.7 fL (80-100); MPV 8.2 fL (7.6-11.3); Nucleated RBC Absolute Count 0.0 (0-0); Nucleated Red Blood Cells % 0.0 % (0-0); RBC Red Blood Cell Count 2.60 M/uL (4.33-5.43); White Blood Count 5.10 thou/uL (4.3-10.9)
[2024-10-24 13:16] LABS: PT Prothrombin Time 14.6 SECONDS (10-13.0); PTT, Activated Partial Thromb 27.6 SECONDS (27.2-37.4); Protime INR 1.3
[2024-10-24 13:27] LABS: ALT/SGPT 17 U/L (16-61); AST/SGOT < 10 U/L (15-37); Albumin 3.2 g/dL (3.4-5.0); Albumin/Globulin Ratio 1.1 (1.1-1.8); Alkaline Phosphatase 51 U/L (45-117); Anion Gap 8.0 mEq/L (5.0-15.0); BUN Blood Urea Nitrogen 33 mg/dL (7-18); Bilirubin Indirect, Calculated 1.2 mg/dL (0.2-0.8); Globulin 2.8 g/dL (2.3-3.5); Glucose Level 106 mg/dL (74-106); Magnesium 1.9 mg/dL (1.6-2.4); NT PRO-BNP 19 pg/mL (<125); Potassium 4.0 mEq/L (3.5-5.1); Troponin High Sensitivity 3.4 pg/mL (<58.9)
[2024-10-24] MEDS ORDERED: NA CHLORIDE 0.9% 250 ML ONE (14:31)
--- NOTE | 2024-10-24 16:04 | ER ---
Nurse's Notes [facility] Name: Sandeep Lanza Age: 64 yrs Sex: Male : 1960 Arrival Date: 10/24/2024 Time: 12:00 Bed 5 Private MD: Diagnosis: Upper GI bleed, melena Presentation: 10/24 12:25 Chief complaint: Bright red and dark rectal bleeding x 2 days. Dizzy and weak today. hb Coronavirus screen: At this time, the client does not indicate any symptoms associated with coronavirus-19. Ebola Screen: No symptoms or risks identified at this time. Initial Sepsis Screen: Does the patient meet any 2 criteria? No. Patient's initial sepsis screen is negative. Does the patient have a suspected source of infection? No. Patient's initial sepsis screen is negative. Risk Assessment: Do you want to hurt yourself or someone else? Patient reports no desire to harm self or others. Onset of symptoms was October 23, 2024. 12:25 Method Of Arrival: Ambulatory hb 12:25 Acuity: AMEENA 3 hb Historical: - Allergies: 14:34 No Known Allergies; ph - PMHx: 12:26 Asthma; follicular lymphoma; Hepatitis C; hb - PSHx: 12:26 Cholecystectomy; hernia repair; hb 12:27 Knee - Right; hb - Immunization history:: Adult Immunizations up to date. - Infectious Disease History:: Denies. - Social history:: Smoking status: Patient denies any tobacco usage or history of. Screenin:34 [facility] ED Fall Risk Assessment (Adult) History of falling in the last 3 months, ph including since admission No falls in past 3 months (0 pts) Confusion or Disorientation No (0 pts) Intoxicated or Sedated No (0 pts) Impaired Gait No (0 pts) Mobility Assist Device Used Yes (1 pt) Altered Elimination No (0 pt) Score/Fall Risk Level 0 - 2 = Low Risk Oriented to surroundings, Maintained a safe environment, Hourly rounding (assess needs \T\ fall precautionary measures) done. Abuse screen: Denies threats or abuse. Denies injuries from another. Nutritional screening: No deficits noted. Tuberculosis screening: No symptoms or risk factors identified. Assessment: 13:35 Reassessment: Patient appears in no apparent distress at this time. Patient and/or db family updated on plan of care and expected duration. Pain level reassessed. Patient is alert, oriented x 3, equal unlabored respirations, skin warm/dry/pink. General: Appears in no apparent distress. comfortable, Behavior is calm, cooperative. Neuro: Level of Consciousness is awake, alert, obeys commands, Oriented to person, place, time, situation. Respiratory: Airway is patent Respiratory effort is even, unlabored, Respiratory pattern is regular, symmetrical. 14:09 Reassessment: Patient and/or family updated on plan of care and expected duration. Pain ll1 level reassessed. 14:30 General: Appears in no apparent distress. comfortable, well groomed, Behavior is calm, ph cooperative, appropriate for age. Pain: Complains of pain in right upper quadrant. Neuro: Level of Consciousness is awake, alert, obeys commands, Oriented to person, place, time, situation. Cardiovascular: Reports fatigue, Capillary refill < 3 seconds in bilateral fingers Patient's skin is warm and dry. Respiratory: Airway is patent Respiratory effort is even, unlabored. GI: Reports lower abdominal pain, upper abdominal pain, bloody stool. Derm: Skin is dry, Skin is pale, Skin temperature is warm. 16:00 Reassessment: Patient appears in no apparent distress at this time. Patient and/or ph family updated on plan of care and expected duration. Pain level reassessed. Patient is alert, oriented x 3, equal unlabored respirations, skin warm/dry/pink. 18:09 Reassessment: Patient appears in no apparent distress at this time. Patient and/or ph family updated on plan of care and expected duration. Pain level reassessed. Patient is alert, oriented x 3, equal unlabored respirations, skin warm/dry/pink. Attempted to call report to FANG Deutsch, nurse unavailable to take report at this time, asked that I call back in 15 minutes. 19:38 General: 2nd unit of blood started, 15 minute check complete. No adverse reaction. Pt kd3 transferred with second unit. . Vital Signs: 12:25 BP 119 / 68; Pulse 109; Resp 18; Temp 97.4(TE); Pulse Ox 99% on R/A; Weight 104.33 kg; hb Height 5 ft. 11 in. ; Pain 4/10; 14:54 Pulse 94; Resp 18; Pulse Ox 99% on R/A; ph 16:04 BP 123 / 79; Pulse 92; Resp 18; Pulse Ox 98% on R/A; ph 16:04 BP 127 / 72; Pulse 92; Resp 20; Pulse Ox 98% on R/A; ph 17:21 BP 121 / 76; Pulse 101; Resp 18; Pulse Ox 96% on R/A; ph 18:30 BP 118 / 72; Pulse 97; Resp 18; Temp 98.2; Pulse Ox 98% on R/A; ph 19:39 BP 136 / 75; Pulse 84; Resp 18; Pulse Ox 99% on R/A; kd3 12:25 Body Mass Index 32.08 (104.33 kg, 180.34 cm) hb 12:25 Pain Scale: Adult hb Vitals: 14:54 Cardiac Rhythm Assessment Sinus rhythm. ph ED Course: 12:04 Patient arrived in ED. al6 12:12 Renato Cha MD is Attending Physician. sp3 12:26 Triage completed. hb 12:27 Arm band placed on. hb 12:30 Sirisha Lynn RN is Primary Nurse. db 12:45 Initial lab(s) drawn, by ED staff, sent to lab. Inserted saline lock: 20 gauge in right db antecubital area, using aseptic technique. Blood collected. Flushed with 10 mL NS. 13:10 Patient has correct armband on for positive identification. Bed in low position. Call db light in reach. Side rails up X 1. Client placed on continuous cardiac and pulse oximetry monitoring. NIBP monitoring applied. monitoring manager on. Pulse ox on. NIBP on. Pillow given. 13:[address] via stretcher. db 13:55 Pelvis Angio In Process Unspecified. EDMS 13:55 Abdomen Angio In Process Unspecified. EDMS 13:57 Abdomen In Process Unspecified. EDMS 14:09 Patient placed in an exam room, on a stretcher. ll1 16:06 No provider procedures requiring assistance completed. Patient transferred, IV remains ph in place. 16:13 initiated transfer to [facility]. bd 17:51 pt accepted in transfer to [facility] by dr macdonald admin approval given by julissa reyez rn pt going to [facility]. 19:39 Provided Education on: Blood Transfusion. kd3 Administered Medications: 12:58 Drug: NS 0.9% IV 1000 ml IV at 1 bolus Per protocol; to be given as a bolus over 60 db minutes Route: IV; Rate: 1 bolus; Site: right antecubital; 14:56 Follow up: Response: No adverse reaction; IV Status: Completed infusion; IV Intake: ph 1000ml 17:19 Drug: HYDROmorphone IVP 1 mg IVP once Route: IVP; Site: right antecubital; ph 19:06 Follow up: Response: No adverse reaction ph 17:19 Drug: Ondansetron IVP 4 mg IVP once; over 2 minutes Route: IVP; Site: right antecubital;ph 19:06 Follow up: Response: No adverse reaction ph Medication: 14:34 VIS not applicable for this client. ph 17:50 Blood products: PRBCs X 1 unit given. ph Intake: 14:56 IV: 1000ml; Total: 1000ml. ph Outcome: 16:04 ER care complete, transfer ordered by . sp3 19:39 Transferred by ground EMS Note: [facility] kd3 19:39 Condition: stable 19:39 Discharge instructions given to patient, Instructed on the need for transfer, Demonstrated understanding of instructions, 19:40 Patient left the ED. kd3 Signatures: Dispatcher [employer] EDMS Evelyn Briceño Patricia, RN RN ph Baxter, Heather RN RN Lilia Cotto RN RN ll1 Renato Cha MD MD sp3 Debora Ratliff RN RN kd3 Sirisha Lynn RN RN db Landin, Alissa al6 Corrections: (The following items were deleted from the chart) 12:27 12:26 PSHx: Knee - Right (hernia repair); hb hb 13:34 13:33 Inserted saline lock: 20 gauge in right antecubital area, using aseptic db technique. Blood collected. Flushed with 10 mL NS db 13:35 13:05 Initial lab(s) drawn, by ED staff, sent to lab. db db 13:35 13:27 Second set of blood cultures drawn db db 13:35 13:05 Inserted saline lock: 20 gauge in right antecubital area, using aseptic db technique. Blood collected. Flushed with 10 mL NS db 13:39 13:34 Patient moved to [place] via stretcher. db db
--- NOTE | 2024-10-24 16:04 | EDPHYS ---
Physician Documentation [facility] Name: Sandeep Lanza Age: 64 yrs Sex: Male : 1960 Arrival Date: 10/24/2024 Time: 12:00 Bed 5 Private MD: ED Physician Renato Cha HPI: 10/24 13:26 This 64 yrs old Male presents to ER via Ambulatory with complaints of Rectal Bleeding, sp3 Dizziness, General Weakness. 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 Patient has photos to support this with dark red melanotic stool noted. He denies any abdominal pain. He is not on any anticoagulants or antiplatelet agents. He denies any headache, chest pain, shortness of breath, back pain, nausea, vomiting, syncope, near syncope but does endorse generalized weakness. Patient's PCP is Dr. Brownlee and he does not have an established GI specialist. No prior history of GI bleed noted.. Historical: - Allergies: 14:34 No Known Allergies; ph - PMHx: 12:26 Asthma; follicular lymphoma; Hepatitis C; hb - PSHx: 12:26 Cholecystectomy; hernia repair; hb 12:27 Knee - Right; hb - Immunization history:: Adult Immunizations up to date. - Infectious Disease History:: Denies. - Social history:: Smoking status: Patient denies any tobacco usage or history of. ROS: 13:28 Constitutional: Negative for fever, chills, and weight loss, Eyes: Negative for injury, sp3 pain, redness, and discharge, ENT: Negative for injury, pain, and discharge, Neck: Negative for injury, pain, and swelling, Cardiovascular: Negative for chest pain, palpitations, and edema, Respiratory: Negative for shortness of breath, cough, wheezing, and pleuritic chest pain, Back: Negative for injury and pain, MS/Extremity: Negative for injury and deformity, Skin: Negative for injury, rash, and discoloration, Neuro: Negative for headache, weakness, numbness, tingling, and seizure, Psych: Negative for depression, anxiety, suicide ideation, homicidal ideation, and hallucinations, Allergy/Immunology: Negative for hives, rash, and allergies, Endocrine: Negative for neck swelling, polydipsia, polyuria, polyphagia, and marked weight changes, 13:28 All other systems are negative, Exam: 13:29 Constitutional: This is a well developed, well nourished patient who is awake, alert, sp3 and in no acute distress. Head/Face: Normocephalic, atraumatic. 13:41 Eyes: Pupils equal round and reactive to light, extra-ocular motions intact. Lids and sp3 lashes normal. Conjunctiva and sclera are non-icteric and not injected. Cornea within normal limits. Periorbital areas with no swelling, redness, or edema. ENT: Nares patent. No nasal discharge, no septal abnormalities noted. External auditory canals are clear. Oropharynx with no redness, swelling, or masses, exudates, or evidence of obstruction, uvula midline. Mucous membranes moist. Neck: Trachea midline, no thyromegaly or masses palpated, and no cervical lymphadenopathy. Supple, full range of motion without nuchal rigidity, or vertebral point tenderness. No Meningismus. Chest/axilla: Normal chest wall appearance and motion. Nontender with no deformity. No lesions are appreciated. Respiratory: Lungs have equal breath sounds bilaterally, clear to auscultation and percussion. No rales, rhonchi or wheezes noted. No increased work of breathing, no retractions or nasal flaring. Back: No spinal tenderness. No costovertebral tenderness. Full range of motion. Skin: Warm, dry with normal turgor. Normal color with no rashes, no lesions, and no evidence of cellulitis. MS/ Extremity: Pulses equal, no cyanosis. Neurovascular intact. Full, normal range of motion. Neuro: Awake and alert, GCS 15, oriented to person, place, time, and situation. Cranial nerves II-XII grossly intact. Motor strength 5/5 in all extremities. Sensory grossly intact. Cerebellar exam normal. Normal gait. Psych: Awake, alert, with orientation to person, place and time. Behavior, mood, and affect are within normal limits. 13:41 Cardiovascular: Rate: tachycardic, 13:41 Abdomen/GI: Abdomen is soft nontender nondistended, 13:44 ECG was reviewed by the Attending Physician. EKG demonstrates normal sinus rhythm at 95 sp3 bpm with normal intervals, normal QRS, normal axis, nonspecific diffuse ST/T changes without evidence of acute ischemia. Vital Signs: 12:25 BP 119 / 68; Pulse 109; Resp 18; Temp 97.4(TE); Pulse Ox 99% on R/A; Weight 104.33 kg; hb Height 5 ft. 11 in. ; Pain 4/10; 14:54 Pulse 94; Resp 18; Pulse Ox 99% on R/A; ph 16:04 BP 123 / 79; Pulse 92; Resp 18; Pulse Ox 98% on R/A; ph 16:04 BP 127 / 72; Pulse 92; Resp 20; Pulse Ox 98% on R/A; ph 17:21 BP 121 / 76; Pulse 101; Resp 18; Pulse Ox 96% on R/A; ph 18:30 BP 118 / 72; Pulse 97; Resp 18; Temp 98.2; Pulse Ox 98% on R/A; ph 19:39 BP 136 / 75; Pulse 84; Resp 18; Pulse Ox 99% on R/A; kd3 12:25 Body Mass Index 32.08 (104.33 kg, 180.34 cm) hb 12:25 Pain Scale: Adult hb MDM: 12:29 Medical Screening Exam initiated sp3 13:42 Data reviewed: vital signs, nurses notes, lab test result(s), EKG, radiologic studies. sp3 ED course: 64-year-old male with probable upper GI bleed possibly from gastric antrum where he had follicular lymphoma. Other considerations include peptic ulcer disease, gastritis, variceal bleed although patient is not a heavy alcohol user, duodenal ulcer, among others. Workup will include full laboratory workup including coagulation profile, CBC, CT scan of the abdomen pelvis GI bleed protocol, and probable transfer for GI consultation. Will give PRBCs if indicated.. 14:16 ED course: Hemoglobin is 7.8. Will start Protonix drip and also administer 2 units sp3 PRBCs. Patient will be transferred to [facility] or [place] depending on GI availability.. 16:02 ED course: CT demonstrates possible source of the greater curvature of the stomach sp3 demonstrating enhancement of the mucosa. Vital signs improved and patient is stable. We will transfer for GI consultation. 2 units PRBCs have been administered.. 17:00 ED course: Patient accepted at [facility] on the hospitalist service with GI sp3 consultation.. 10/24 12:42 Order name: Basic Metabolic Panel; Complete Time: 14:15 3 10/24 12:42 Order name: CBC with Diff; Complete Time: 14:15 3 10/24 12:42 Order name: LFT's; Complete Time: 14:15 sp3 10/24 12:42 Order name: Magnesium; Complete Time: 14:15 3 10/24 12:42 Order name: NT PRO-BNP; Complete Time: 14:15 3 10/24 12:42 Order name: PT-INR; Complete Time: 13:19 sp3 10/24 12:42 Order name: Troponin HS; Complete Time: 14:15 3 10/24 12:42 Order name: Ptt, Activated; Complete Time: 13:19 3 10/24 12:42 Order name: Lactate w/ 2H reflex if indic.; Complete Time: 14:15 3 10/24 12:42 Order name: Type And Screen 3 10/24 14:24 Order name: Packed RBC Leukored [facility] 10/24 16:05 Order name: ABO/RH no charge; Complete Time: 16:14 EDMS 10/24 13:45 Order name: Pelvis Angio; Complete Time: 16:14 EDMS 10/24 13:45 Order name: Abdomen Angio; Complete Time: 16:14 EDMS 10/24 13:45 Order name: Abdomen ; Complete Time: 16:14 EDMS 10/24 12:42 Order name: Cardiac monitoring; Complete Time: 13:41 3 10/24 12:42 Order name: EKG - Nurse/Tech; Complete Time: 13:41 3 10/24 12:42 Order name: IV Saline Lock; Complete Time: 13:41 3 10/24 12:42 Order name: Labs collected and sent; Complete Time: 13:41 3 10/24 12:42 Order name: O2 Per Protocol; Complete Time: 13:41 3 10/24 12:42 Order name: O2 Sat Monitoring; Complete Time: 13:41 3 10/24 14:23 Order name: Labs - recollect needed: collect abo\E\rh no charge; Complete Time: 14:56 bd Administered Medications: 12:58 Drug: NS 0.9% IV 1000 ml IV at 1 bolus Per protocol; to be given as a bolus over 60 db minutes Route: IV; Rate: 1 bolus; Site: right antecubital; 14:56 Follow up: Response: No adverse reaction; IV Status: Completed infusion; IV Intake: ph 1000ml 17:19 Drug: HYDROmorphone IVP 1 mg IVP once Route: IVP; Site: right antecubital; ph 19:06 Follow up: Response: No adverse reaction ph 17:19 Drug: Ondansetron IVP 4 mg IVP once; over 2 minutes Route: IVP; Site: right antecubital;ph 19:06 Follow up: Response: No adverse reaction ph Disposition Summary: 10/24/24 16:04 Transfer Ordered Notes: Transfer Location: [facility] sp3 Reason: Higher level of care sp3 Condition: Stable sp3 Problem: an acute exacerbation sp3 Symptoms: have worsened sp3 Accepting Physician: [facility] hospitalist and GI(10/24/24 19:40) kd3 Diagnosis - Upper GI bleed, melena sp3 Forms: - Medication Reconciliation Form sp3 - SBAR form sp3 Critical care time excluding procedures: 14:19 Critical care time: Bedside Care: 10 minutes, Consultation: 10 minutes, Family sp3 Intervention: 10 minutes. Total time: 30 minutes Signatures: Dispatcher [employer] EDMS Evelyn Briceño Patricia, RN RN Radha Washburn, RN RN Renato Cha MD MD sp3 Debora Ratliff RN RN kd3 Sirisha Lynn RN RN db Corrections: (The following items were deleted from the chart) 12:27 12:26 PSHx: Knee - Right (hernia repair); hb hb 12:42 12:42 BASIC METABOLIC PANEL+C.LAB.BRZ ordered. EDMS EDMS 12:42 12:42 CBC+H.LAB.BRZ ordered. EDMS EDMS 12:42 12:42 HEPATIC FUNCTION+C.LAB.BRZ ordered. EDMS EDMS 12:42 12:42 MAGNESIUM+C.LAB.BRZ ordered. EDMS EDMS 12:42 12:42 PROBNP+C.LAB.BRZ ordered. EDMS EDMS 12:42 12:42 PROTIME (+INR)+COAG.LAB.BRZ ordered. EDMS EDMS 12:42 12:42 Troponin High Sensitivity+C.LAB.BRZ ordered. EDMS EDMS 12:42 12:42 PTT, ACTIVATED+COAG.LAB.BRZ ordered. EDMS EDMS 12:42 12:42 LACTATE+C.LAB.BRZ ordered. EDMS EDMS 12:42 12:42 TYPE AND SCREEN+BB.LAB.BRZ ordered. 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 Patient has photos to support this with dark red melanotic stool noted. He denies any abdominal pain. He is not on any anticoagulants or antiplatelet agents. He denies any headache, chest pain, shortness of breath, back pain, nausea, vomiting, syncope, near syncope but does endorse generalized weakness.. sp3 13:45 13:24 Abdomen Pelvis W Con+CT.RAD.BRZ ordered. EDMS EDMS 14:25 14:11 PACKED RBC LEUKORED+BB.LAB.BRZ ordered. EDMS EDMS 14:25 14:14 ABO/RH typing ordered. EDMS EDMS 14:25 14:14 Antibody Screen ordered. EDMS EDMS 19:40 16:04 [facility] hospitalist and GI sp3 kd3
--- NOTE | 2024-10-24 16:13 | RAD REPORT ---
EXAM: CTA abdomen and Pelvis Angio WITH AND WITHOUT HISTORY: [facility] MAIN GI BLEED COMPARISON: 02/03/2024 TECHNIQUE: Multiple contiguous axial images were obtained a CTA of the abdomen and pelvis with and wi thout contrast per the department's GI bleeding protocol. Sagittal and coronal 3-D MIP reformats were performed. One or more of the following dose reduction techniques were used: Automated exposure control, adjustment of the mA and kV according to patient size, and iterative reconstruction. Unless otherwise specified, incidental findings do not require dedicated imaging follow-up. FINDINGS: LOWER LUNGS: No focal infiltrates or masses. LIVER: Nodular contour. Asymmetric left lobe hypertrophy.. KIDNEYS: Unremarkable. SPLEEN: Enlarged measuring 17.4 cm in long axis. PANCREAS: Unremarkable. BOWEL: Crescentic region of hyperdensity adjacent to the mucosa of the gastric body along the greater curvature. Nodular nonspecific hyperenhancing thickening at the cardiac extending along the lesser curvature, measuring 2.7 cm in greatest AP extent. Long segments of bowel wall thickening, hyperenhan cement, and adjacent fat stranding, involving the mid jejunum through distal ileum. Nonspecific fat stranding along the small bowel adventitia and mesenteric root Status post cholecystectomy. RETROPERITONEUM: No lymphadenopathy BONES: Degenerative changes in the spine. ASCENDING THORACIC AORTA: Normal caliber without evidence of dissection or aneurysmal dilatation. DESCENDING THORACIC AORTA: Normal caliber without evidence of dissection or aneurysmal dilatation. ABDOMINAL AORTA: Normal caliber without evidence of dissection or aneurysmal dilatation. CELIAC TRUNK: Patent SMA: Patent PHONG: Patent RENAL ARTERIES: Bilateral single renal arteries without significant atherosclerotic disease IMPRESSION: Crescentic region of hyperdensity adjacent to the gastric body mucosa near the greater curvature, cou ld relate to extravasated blood, small varix, or vascular malformation. Stigmata of liver cirrhosis with splenomegaly. Nodular hyperenhancing mucosal thickening of the gastr ic cardia, could relate to moderately prominent varicosities, versus a mucosal lesion given the history. Long segments of small bowel wall thickening and hyperenhancement, with mild fat stranding along the mesenteric root, suggesting ongoing enteritis. THIS REPORT CONTAINS FINDINGS THAT MAY BE CRITICAL TO PATIENT CARE. The findings were verbally commun icated via telephone to Renato Cha on 10/24/2024 4:03 PM.
[2024-10-24] MEDS ORDERED: HYDROMORPHONE HCL 1 MG/ML INJ ONE (17:07)
[2024-10-24] MEDS ORDERED: ONDANSETRON 4 MG/2 ML VIAL ONE (17:07)
[2024-10-24 20:21] VITALS: TEMP 98.2
[2024-10-24 20:22] VITALS: BP 136/75; O2SAT 99
== END 2024-10-24 19:40 | disposition short-term general hospital (02) ==
LOC: ER 12:00
DX: K92.1 Melena (principal); R53.1 Weakness
CPT/HCPCS: 96361; 93005; 85025; 80048; 36415; 86900; 83735; 86850; 85610; 86901; 80076; 83605; 85730; 86920 ×2; 84484; 83880; 72191; 74175; 74176; 36430; 96375; 96374; 99285; Q9967; J1171; J2405; P9016 ×2; J7050; J7030